=== PATIENT | male | born 1960 | race Caucasian/White ===

== ENCOUNTER 2017-12-26 13:51 | Inpatient (IN) | payer MEDICAID ==
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
[2017-12-26] MEDS ORDERED: HYDROmorphone INJ* 2 MG/ML CARPUJECT SYRINGE IV SLOW PU ONE (15:11)
[2017-12-26] MEDS ORDERED: HYDROmorphone INJ* 1 MG/ML CARPUJECT SYRINGE IV ONE (15:15)
[2017-12-26] MEDS ORDERED: HYDROmorphone INJ1* 1 MG/ML SYRINGE ONE ×3 (15:15→22:29)
[2017-12-26] MEDS ORDERED: NS 0.9% 1000 ML* 1,000 ML IV ONE ×2 (16:52→17:27)
[2017-12-26] MEDS ORDERED: Lidocaine 2% PF * 5 ML VIAL ONE (17:41)
[2017-12-26] MEDS ORDERED: fentaNYL* 50 MCG/ML 2 ML VIAL (100 MCG VIAL) ONE (17:41)
[2017-12-26] MEDS ORDERED: Propofol* 10 MG/ML 20 ML BTL IV PUSH ONE (17:41)
[2017-12-26] MEDS ORDERED: Metoclopramide IV* 5 MG/ML 2 ML VIAL ONE ×2 (17:41→21:00)
[2017-12-26] MEDS ORDERED: Midazolam* 1 MG/ML 2 ML VIAL (2 MG) ONE (17:41)
[2017-12-26] MEDS ORDERED: Rocuronium* 10 MG/ML VIAL ONE ×2 (17:41→21:18)
[2017-12-26] MEDS ORDERED: ZOSYN 3.375 GM x ONE DOSE over 30 miuntes IVPB ×2 (20:00)
[2017-12-26] MEDS ORDERED: Dexamethasone IV* 4 MG/ML 1 ML (4 MG) ONE (21:00)
[2017-12-26] MEDS ORDERED: Ondansetron INJ* 2 MG/ML VIAL ONE (21:00)
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
[2017-12-26] MEDS ORDERED: oxyCODONE/Acetamin 5/325 MG* TAB PO PRN (22:27)
[2017-12-26] MEDS ORDERED: Ondansetron INJ* 2 MG/ML VIAL IV PRN (22:27)
[2017-12-26] MEDS ORDERED: Acetaminophen IV 1GM/100ML * 1,000 MG/100 ML VIAL IVPB ONE (22:27)
[2017-12-26] MEDS ORDERED: HYDROmorphone INJ1* 1 MG/ML SYRINGE IV PRN (22:27)
[2017-12-26] MEDS ORDERED: DiMENhydriNATE IV* 50 MG/ML VIAL IV PUSH PRN (22:27)
[2017-12-26] MEDS ORDERED: Naloxone* 0.4 MG/ML 1 ML VIAL IV PRN (22:27)
[2017-12-26] MEDS ORDERED: Bupivacaine 0.5% SDV PF* 30ML VIAL ONE (22:29)
[2017-12-26] MEDS ORDERED: Ketorolac INJ* 30 MG/ML 1 ML VIAL ONE (22:31)
[2017-12-26] MEDS ORDERED: Neostigmine Methylsulfate* 1 MG/ML 10 ML VIAL (1 mg/ml) ONE (22:32)
[2017-12-26] MEDS ORDERED: Glycopyrrolate IV* 0.2 MG/ML 1 ML VIAL ONE (22:32)
--- NOTE | 2017-12-26 23:12 | BRIEFOPN ---
Brief Operative Note - Surgery Procedures: OPERATIVE REPORT PRE-OP: Peritonitis, pneumoperitoneum POST-OP:Same, Perforated sigmoid colon diverticula with abscess PROCEDURE: Exploratory laparotomy, sigmoid colon resection with end sigmoid colostomy SURGEON: MD Marcus ANESTHESIA:Local with General, Dr. Davis ASST:Niurka Garcia MD IVF: 2.5 L crystalloid EBL:100 cc SPECIMEN: Portion of sigmoid colon DRAIN: none WOUND CLASS: 4 COMPLICATIONS: none TO PACU
[2017-12-26] MEDS ORDERED: Acetaminophen TAB* 325 MG PO PRN (23:14)
[2017-12-26] MEDS ORDERED: Naloxone* 0.4 MG/ML 1 ML VIAL IV PUSH PRN (23:14)
[2017-12-26] MEDS ORDERED: Acetaminophen IV 1GM/100ML * 100 ML ONE (23:41)
[2017-12-26] MEDS ORDERED: Morphine PCA ADULT* 5 MG/ML 30 ML PCA SCH (23:45)
[2017-12-27] MEDS: NS 0.9% 1000 ML* 1,000 ML IV SCH ×4 (00:58→20:06)
[2017-12-27] MEDS: Ketorolac INJ* 30 MG/ML 1 ML VIAL IV PUSH PRN ×3 (03:27→20:14)
[2017-12-27] MEDS: Piperacillin/Tazobac ADVAN(*) 3.375 GM in NS 0.9% 100 ML* 100 ML IVPB SCH ×3 (03:39→20:24)
--- NOTE | 2017-12-27 05:11 | OP ---
DATE OF OPERATION: 12/26/17 - ROOM #338 DATE OF : 60 SURGEON: Hiram Velazquez MD ICE CREAM VAULT WORKER: Jn Garcia MD ANESTHESIOLOGIST: Dr. Davis ANESTHESIA: General with local. PRE-OP DIAGNOSIS: Peritonitis with pneumoperitoneum. POST-OP DIAGNOSES: 1. Peritonitis with pneumoperitoneum 2. Perforated sigmoid diverticulum with abscess and purulent peritonitis. OPERATIVE PROCEDURE: Exploratory laparotomy with partial sigmoid colon resection and end-sigmoid colostomy. IV FLUIDS: 2 L of crystalloid. ESTIMATED BLOOD LOSS: Less than 100 cc. WOUND CLASSIFICATION: 4. DRAINS: None. SPECIMENS: Portion of sigmoid colon. FINDINGS: There was a rather large perforation in the proximal to mid portion of the sigmoid colon, which had been walled off with omentum and small bowel. There was noted to be purulent peritonitis in all 4 quadrants of the abdomen. There was a large abscess that was drained. The gallbladder and liver were normal. The appendix was visualized and was unremarkable. All the small bowel inflammation was secondary to the perforated diverticulum. BRIEF HISTORY: Mr. Avtar Mota is a 57-year-old gentleman who presented to the emergency room at [facility] and transferred to the emergency room here at [facility] with 4 to 5 days of worsening abdominal discomfort. The CT scan showed large amount of pneumoperitoneum as well as probable perforated sigmoid diverticulum with abscess. On the physical exam, he was noted to have generalized peritonitis. Although his white blood cell count was only mildly elevated, he had no tachycardia. At this time, due to his exam and clinical appearance, he is being taken to the operating room for laparotomy. The procedure and its risks were all discussed with the patient and clearly outlined in the preoperatively transcribed history and physical. DESCRIPTION OF PROCEDURE: Written informed consent was obtained, the abdomen was marked with indelible ink and preoperative antibiotics were administered. The patient was taken to the operating room and placed in the supine position. Sequential compression devices and a warming blanket were applied. General anesthesia was administered. Irby catheter was inserted. The abdomen was prepped and draped in usual sterile fashion. Time-out verification was completed. A midline incision was made from just below the umbilicus down to the area just above the pubis and the peritoneal cavity was entered under direct vision. Upon entering, there was purulent turbid foul-smelling fluid in all 4 quadrants of the abdomen. There was an inflammatory mass in the left lower quadrant and there was omentum adherent to this and this was peeled off, entered an abscess cavity of creamy pus, which was cultured. After we were able to mobilize the small bowel as well as the omentum off the sigmoid colon, it appeared to be a rather large perforation of the sigmoid colon. There was no feculent peritonitis, however. The abscess was completely drained. I ran the entire small bowel and there appeared to be no primary process of pathology. There was fibrinous exudate along the areas of the small bowel that bordered the abscess and inflammatory process. Pelvis appeared to be unremarkable. The entire abdomen was thoroughly irrigated with 4 to 5 L of saline until clear as possible. I then made a decision to proceed with the resection of the diseased sigmoid colon. This was really in the proximal to mid sigmoid colon and a CRISTIN-80 blue load of the stapler was used to divide the colon on either side. There were multiple diverticulum, mainly noted distally, as well that were left behind. The mesentry of the sigmoid was divided with the LigaSure device. The specimen was handed off the table and I did alexis the distal sigmoid colon with 2 separate 3-0 Prolene sutures for future surgical intervention i.e. colostomy reversal. I then proceeded to mobilize the distal descending as well as the proximal sigmoid colon by dividing the peritoneum along the lateral white line of Toldt. This mobilized this up nicely. I did identify the left ureter at the pelvic brim and this was protected from injury throughout. A small portion of the mesentery of the proximal sigmoid was divided to mobilize this up to the anterior abdominal wall, and once we were able to do this with adequate length that I had felt through the site of the proposed colostomy, a unalakleet incision was made in the skin overlying the left rectus muscle just below the umbilicus and the subcutaneous fat was excised. A defect was made through both the anterior and posterior rectus sheath as well as splitting the muscle fibers of the rectus muscle and the stable portion of the colon was brought up through the abdominal wall with care to prevent twisting. It appeared to have little tension and was viable. Pelvis was then further irrigated and hemostasis was assured in the operative site areas. All sponge, needle, and laparotomy pad counts were reported as correct. The midline incision was closed with interrupted #1 Vicryl sutures. The skin was approximated loosely with a stapling device and the wound was packed with a moist 4 x 4 gauze. The colostomy was then matured to the skin with interrupted with 3-0 Vicryl suture. It was viable but edematous after removing the staple line. A colostomy appliance was applied. The patient tolerated the procedure well, was taken to the recovery room in stable condition. [id number]/[facility] #: [id number] [facility]
[2017-12-27 05:56] LABS: Hematocrit 38 % (42-52); Hemoglobin 12.6 g/dl (14.0-18.0); Mean Corpuscular HGB Conc 33 g/dl (31-36); Mean Corpuscular Hemoglobin 31 pg (27-31); Mean Corpuscular Volume 92 fL (80-94); Mean Platelet Volume 7.4 um3 (7.4-10.4); Platelet Count 386 10^3/ul (150-450); Red Cell Distribution Width 14 % (10.5-15); White Blood Count 18.9 10^3/ul (3.5-10.8)
[2017-12-27 06:16] LABS: EGFR Non-African American 102.6 (>60)
--- NOTE | 2017-12-27 08:40 | PN ---
Progress Note - Progress Note Date of Service: 12/27/17 SOAP: Subjective: Feels better Pain adequately controlled Tolerating some liquids, no N/V Objective: Temp Pulse Resp BP Pulse Ox 98.5 F 99 16 148/78 98 12/27/17 07:19 12/27/17 07:19 12/27/17 08:00 12/27/17 07:19 12/27/17 08:00 Intake & Output 12/25/17 12/26/17 12/27/17 12/28/17 06:59 06:59 06:59 06:59 Intake Total 4320 980 Output Total 850 Balance 3470 980 Weight 150 lb Intake: IV Fluids 3100 980 LR 2100 NS (0.9%) 980 Oral 1220 Output: Irby 750 Estimated Blood Loss 100 PEX: Comfortable Lungs are clear, decreased breath sounds at bases Abd is distended, dressing intact. 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
[2017-12-27] MEDS: Famotidine IV* 10 MG/ML 2 ML (20 mg) IV SLOW PU SCH ×2 (11:05→22:00)
[2017-12-27 13:19] LABS: INR 1.08 (0.77-1.02)
[2017-12-27] MEDS: Heparin VIAL(*) 5000 UNITS/ML VIAL (FIVE THOUSAND) SUBCUT SCH ×2 (13:44→22:00)
[2017-12-27] MEDS: Ondansetron INJ* 2 MG/ML VIAL IV PRN (20:14)
[2017-12-28] MEDS: NS 0.9% 1000 ML* 1,000 ML IV SCH ×2 (02:23→09:30)
[2017-12-28] MEDS: Ondansetron INJ* 2 MG/ML VIAL IV PRN (03:05)
[2017-12-28] MEDS: Piperacillin/Tazobac ADVAN(*) 3.375 GM in NS 0.9% 100 ML* 100 ML IVPB SCH ×3 (04:23→20:26)
[2017-12-28] MEDS: Heparin VIAL(*) 5000 UNITS/ML VIAL (FIVE THOUSAND) SUBCUT SCH ×3 (06:16→23:09)
--- NOTE | 2017-12-28 07:59 | RAD ---
INDICATION: Nasogastric tube placement COMPARISON: None. TECHNIQUE: Single AP portable view of the chest was obtained. FINDINGS: Image quality is compromised due to the relative inferiority of a portable chest x-ray. There is a gastric tube with the tip terminating over the expected location of the gastric fundus below the left hemidiaphragm. There is a mild degree of cardiomegaly. The pulmonary vasculature appears engorged and indistinct. There is bibasilar costophrenic angle blunting which could be due to small pleural effusions. Visualized bones are normal for the patient's age. IMPRESSION: 1. Appropriate positioning of gastric tube with the tip terminating below the left hemidiaphragm overlying the expected location of the gastric fundus. 2. Chest x-ray findings could be compatible with cardiogenic pulmonary edema possibly with trace pleural effusions.
--- NOTE | 2017-12-28 09:06 | PN ---
Progress Note - Progress Note Date of Service: 12/28/17 SOAP: Subjective: His abdomen became distended last night, some nausea, no vomiting NGT inserted with minimal output Pain adequately controlled with JEWELRY POLISHER No SOB or CP Objective: Temp Pulse Resp BP Pulse Ox 98.3 F 79 18 158/88 96 12/28/17 07:31 12/28/17 07:31 12/28/17 07:31 12/28/17 07:31 12/28/17 07:31 Intake & Output 12/26/17 12/27/17 12/28/17 12/29/17 06:59 06:59 06:59 06:59 Intake Total 4320 5777 Output Total 850 1195 Balance 3470 4582 Weight 150 lb Intake: IV Fluids 3100 4290 LR 2100 NS (0.9%) 4290 IVPB 107 ABX - ZOSYN 107 Oral 1220 1380 Output: NG Tube Drainage Amount 130 Irby 750 1020 Colostomy 45 Estimated Blood Loss 100 PEX: Comfortable-awake and alert and in NAD Lungs are clear, decreased breath sounds at bases Abd is distended and firm, decreased bowel sounds throughout. Midline incision is clean and pink, packing changed. Ostomy is pink and edematous, no output of fluid or gas. Appropriate incisional tenderness. Ext without edema. Labs pending Assessment: POD # 2 s/p exlap with sigmoid colon resection and colostomy for perforated sigmoid diverticula Peritonitis-improving Post op ileus Plan: NGT to suction, ice chips-urine output improving, decrease IVF rate Check labs today IV abx Subq heparin Pulmonary toilet H2 nicole
[2017-12-28 09:18] LABS: ABS Basophils 0 10^3/ul (0-0.2); ABS Eosinophils 0 10^3/ul (0-0.6); ABS Lymphocytes 0.7 10^3/ul (1.0-4.8); ABS Monocytes 1.1 10^3/ul (0-0.8); ABS Neutrophils 15.4 10^3/ul (1.5-7.7); ABS Nucleated RBC 0 10^3/ul; Eosinophil % 0 % (0-6); Hematocrit 38 % (42-52); Hemoglobin 12.9 g/dl (14.0-18.0); Lymphocyte % 4.3 % (25-47); Mean Corpuscular HGB Conc 34 g/dl (31-36); Mean Corpuscular Hemoglobin 31 pg (27-31); Mean Corpuscular Volume 93 fL (80-94); Mean Platelet Volume 7.4 um3 (7.4-10.4); Nucleated Red Blood Cells % 0.1; Platelet Count 403 10^3/ul (150-450); Red Blood Count 4.14 10^6/ul (4.00-5.40); Red Cell Distribution Width 14 % (10.5-15); White Blood Count 17.2 10^3/ul (3.5-10.8)
[2017-12-28 09:32] LABS: EGFR Non-African American 114.4 (>60)
[2017-12-28] MEDS: Famotidine IV* 10 MG/ML 2 ML (20 mg) IV SLOW PU SCH ×2 (10:51→23:11)
[2017-12-28] MEDS: Ketorolac INJ* 30 MG/ML 1 ML VIAL IV PUSH PRN ×2 (10:51→19:26)
[2017-12-29] MEDS: NS 0.9% 1000 ML* 1,000 ML IV SCH ×2 (00:20→19:45)
[2017-12-29] MEDS: Ketorolac INJ* 30 MG/ML 1 ML VIAL IV PUSH PRN (04:40)
[2017-12-29] MEDS: Piperacillin/Tazobac ADVAN(*) 3.375 GM in NS 0.9% 100 ML* 100 ML IVPB SCH ×3 (04:43→19:43)
[2017-12-29] MEDS: Heparin VIAL(*) 5000 UNITS/ML VIAL (FIVE THOUSAND) SUBCUT SCH ×3 (06:27→23:00)
[2017-12-29] MEDS: Famotidine IV* 10 MG/ML 2 ML (20 mg) IV SLOW PU SCH ×2 (10:09→23:00)
--- NOTE | 2017-12-29 10:19 | PN ---
Progress Note - Progress Note Date of Service: 12/29/17 Note: S: POD #3. Doing ok. Pain controlled between RENT CONTROL OFFICE MANAGER and Toradol. No N/V. Continues to have hiccups. No activity in colostomy yet. Ambulating. O: Intake and Output Last 24 Hours 12/27/17 12/28/17 12/29/17 12/30/17 06:59 06:59 06:59 06:59 Intake Total 4320 5777 3331 Output Total 850 1195 2030 300 Balance 3470 4582 1301 -300 Weight 150 lb Intake: IV Fluids 3100 4290 2541 ABX - ZOSYN 110 LR 2100 NS (0.9%) 4290 2431 IVPB 107 110 ABX - ZOSYN 107 110 Oral 1220 1380 680 Output: NG Tube Drainage Amount 130 780 Irby 750 1020 1250 300 Colostomy 45 0 Estimated Blood Loss 100 Vital Signs - 8 hr 12/29/17 12/29/17 12/29/17 03:30 04:01 05:25 Temperature 98.7 F Pulse Rate 79 Respiratory 18 16 16 Rate Blood Pressure 148/70 (mmHg) O2 Sat by Pulse 97 100 97 Oximetry 12/29/17 12/29/17 12/29/17 07:00 07:22 08:00 Temperature 97.6 F Pulse Rate 67 Respiratory 18 18 18 Rate Blood Pressure 142/72 (mmHg) O2 Sat by Pulse 94 100 94 Oximetry 12/29/17 09:00 Temperature Pulse Rate Respiratory 18 Rate Blood Pressure (mmHg) O2 Sat by Pulse 95 Oximetry Gen: NAD; appears comfortable Heart: reg Lungs: clear, incl bases Abd: distended; tympanitic; +BS; colostomy good color; thin clear serosang fluid in bag; no gas; softly firm, min tenderness to palp. Will return later to change packing. Extr: no edema C&S noted A: s/p sigmoid rsxn and end-colostomy for perf'd diverticulitis w/ abscess Prob ileus P: await GI fct; cont NG? (output equals intake of H2O);cont Zosyn; d/c Irby; wound and colostomy care
--- NOTE | 2017-12-29 18:56 | PN ---
Progress Note - Progress Note Date of Service: 12/29/17 Note: Addendum: midline wound packing (saline-moistened 4x4) changed; wound clean; moderate serosang drainage.
[2017-12-30] MEDS: Ketorolac INJ* 30 MG/ML 1 ML VIAL IV PUSH PRN ×3 (01:12→22:58)
[2017-12-30] MEDS: Piperacillin/Tazobac ADVAN(*) 3.375 GM in NS 0.9% 100 ML* 100 ML IVPB SCH ×3 (04:54→20:40)
[2017-12-30 04:58] LABS: ABS Basophils 0 10^3/ul (0-0.2); ABS Eosinophils 0.2 10^3/ul (0-0.6); ABS Lymphocytes 1.5 10^3/ul (1.0-4.8); ABS Nucleated RBC 0 10^3/ul; Eosinophil % 2.2 % (0-6); Hematocrit 34 % (42-52); Hemoglobin 11.6 g/dl (14.0-18.0); Lymphocyte % 14.1 % (25-47); Mean Corpuscular HGB Conc 35 g/dl (31-36); Mean Corpuscular Hemoglobin 31 pg (27-31); Mean Corpuscular Volume 91 fL (80-94); Mean Platelet Volume 7.5 um3 (7.4-10.4); Nucleated Red Blood Cells % 0.1; Platelet Count 443 10^3/ul (150-450); Red Cell Distribution Width 14 % (10.5-15); White Blood Count 10.8 10^3/ul (3.5-10.8)
[2017-12-30] MEDS: Ondansetron INJ* 2 MG/ML VIAL IV PRN ×2 (05:02→20:44)
[2017-12-30] MEDS: Heparin VIAL(*) 5000 UNITS/ML VIAL (FIVE THOUSAND) SUBCUT SCH ×3 (05:03→23:02)
[2017-12-30 05:21] LABS: EGFR Non-African American 147.3 (>60)
--- NOTE | 2017-12-30 09:44 | PN ---
Progress Note - Progress Note Date of Service: 12/30/17 SOAP: Subjective: Continues to feel better Had a small amount of air in bag and some fluid Burping a little Still feels distended Objective: Temp Pulse Resp BP Pulse Ox 98.7 F 67 16 153/69 97 12/30/17 05:05 12/30/17 05:05 12/30/17 07:00 12/30/17 05:05 12/30/17 07:00 Intake & Output 12/28/17 12/29/17 12/30/17 12/31/17 06:59 06:59 06:59 06:59 Intake Total 5777 3331 1080 Output Total 1195 2030 1620 Balance 4582 1301 -540 Intake: IV Fluids 4290 2541 ABX - ZOSYN 110 NS (0.9%) 4290 2431 IVPB 107 110 ABX - ZOSYN 107 110 Oral 1457 170 1364 Output: NG Tube Drainage Amount 130 780 120 Urine 975 Irby 1020 1250 525 Colostomy 45 0 PEX: Comfortable Lungs are clear Cor RRR Abd is distended and slightly firm. Bowel sounds are present and are hyperactive and slightly high pitched. Midline wound is clean and pink--packing changed. Ostomy is edematous and pink- some fluid in the bag Ext without edema Laboratory Results - last 24 hr 12/30/17 12/30/17 04:38 04:38 WBC 10.8 RBC 3.70 L Hgb 11.6 L Hct 34 L MCV 91 MCH 31 MCHC 35 RDW 14 Plt Count 443 MPV 7.5 Neut % (Auto) 73.9 Lymph % (Auto) 14.1 L [place] % (Auto) 9.4 H Eos % (Auto) 2.2 Baso % (Auto) 0.4 Absolute Neuts (auto) 8.0 H Absolute Lymphs (auto) 1.5 Absolute Monos (auto) 1.0 H Absolute Eos (auto) 0.2 Absolute Basos (auto) 0 Absolute Nucleated RBC 0 Nucleated RBC % 0.1 Sodium 137 Potassium 3.5 Chloride 107 Carbon Dioxide 24 Anion Gap 6 BUN 13 Creatinine 0.57 L Est GFR ( Amer) 178.3 Est GFR (Non-Af Amer) 147.3 BUN/Creatinine Ratio 22.8 H Glucose 95 Calcium 7.6 L Assessment: POD# 4 s/p ex lap sigmoid colon resection with end colostomy for perforated sigmoid diverticula Ileus Blood cultures positive for Bacteroides, operative cultures with e coli Plan: Sips of clears IV abx Increase activity Wound and ostomy care Pulmonary toilet Begin discharge planning
[2017-12-30] MEDS: NS 0.9% 1000 ML* 1,000 ML IV SCH (09:59)
[2017-12-30] MEDS: Famotidine IV* 10 MG/ML 2 ML (20 mg) IV SLOW PU SCH ×2 (10:01→20:42)
[2017-12-31] MEDS: Piperacillin/Tazobac ADVAN(*) 3.375 GM in NS 0.9% 100 ML* 100 ML IVPB SCH ×3 (05:27→19:49)
[2017-12-31] MEDS: Heparin VIAL(*) 5000 UNITS/ML VIAL (FIVE THOUSAND) SUBCUT SCH ×3 (05:31→22:10)
[2017-12-31] MEDS: Famotidine IV* 10 MG/ML 2 ML (20 mg) IV SLOW PU SCH ×2 (08:47→22:11)
[2017-12-31] MEDS: Ondansetron INJ* 2 MG/ML VIAL IV PRN ×2 (08:50→19:07)
[2017-12-31] MEDS: oxyCODONE/Acetamin 5/325 MG* TAB PO PRN ×3 (08:50→19:49)
[2017-12-31] MEDS ORDERED: HYDROmorphone INJ* 1 MG/ML CARPUJECT SYRINGE IV SLOW PU PRN (09:21)
--- NOTE | 2017-12-31 09:30 | PN ---
Progress Note - Progress Note Date of Service: 12/31/17 SOAP: Subjective: Still distended and burping, taking minimal po now, some nausea There has been some gas in colostomy bag Ambulating in halls Minimal abdominal pain Objective: Temp Pulse Resp BP Pulse Ox 98.6 F 64 20 147/74 96 12/31/17 08:32 12/31/17 08:32 12/31/17 08:50 12/31/17 08:32 12/31/17 08:32 Intake & Output 12/29/17 12/30/17 12/31/17 01/01/18 06:59 06:59 06:59 06:59 Intake Total 3331 1080 1680 Output Total 2029 1620 1125 340 Balance 1301 -540 555 -340 Intake: IV Fluids 2541 980 ABX - ZOSYN 110 NS (0.9%) 2431 980 IVPB 110 ABX - ZOSYN 110 Oral 680 1080 700 Output: NG Tube Drainage Amount 780 120 Urine 975 1050 340 Irby 1250 525 Colostomy 0 75 Other: Estimated Stool Amount Small PEX: Comfortable Lungs are clear, decreased breath sounds at the bases Cor is RRR Abd is distended and firm. Minimal bowel sounds present. Incision is clean and pink, packing changed. Ostomy is pink and edematous, some thicker green fluid in bag, minimal amount of gas Ext without edema No labs Blood cultures and wound cultures noted. Assessment: POD# 5 s/p exlap for perforated sigmoid colon diverticula with end sigmoid colostomy Post-op ileus Plan: He remains distended with minimal ostomy output. Some nausea with little po--he is not ready for discharge Will continue IV fluids and po as tolerated-await resolution of ileus before considering discharge IV abx Pulmonary toilet Sub q heparin H2 nicole Check labs in AM
[2017-12-31] MEDS: NS 0.9% 1000 ML* 1,000 ML IV SCH (11:12)
[2017-12-31] MEDS ORDERED: diPHENhydraMINE PO* 25 MG PO PRN (20:15)
[2018-01-01] MEDS: NS 0.9% 1000 ML* 1,000 ML IV SCH ×2 (02:24→21:32)
[2018-01-01] MEDS: HYDROmorphone INJ1* 1 MG/ML SYRINGE IV SLOW PU PRN (02:30)
[2018-01-01] MEDS: Piperacillin/Tazobac ADVAN(*) 3.375 GM in NS 0.9% 100 ML* 100 ML IVPB SCH ×3 (04:26→22:22)
[2018-01-01] MEDS: oxyCODONE/Acetamin 5/325 MG* TAB PO PRN ×6 (04:27→21:40)
[2018-01-01] MEDS: Heparin VIAL(*) 5000 UNITS/ML VIAL (FIVE THOUSAND) SUBCUT SCH ×3 (06:09→22:22)
[2018-01-01 06:41] LABS: ABS Basophils 0 10^3/ul (0-0.2); ABS Eosinophils 0.1 10^3/ul (0-0.6); ABS Lymphocytes 1.5 10^3/ul (1.0-4.8); ABS Neutrophils 19.8 10^3/ul (1.5-7.7); ABS Nucleated RBC 0 10^3/ul; Eosinophil % 0.2 % (0-6); Hematocrit 36 % (42-52); Lymphocyte % 6.5 % (25-47); Mean Corpuscular HGB Conc 34 g/dl (31-36); Mean Corpuscular Hemoglobin 31 pg (27-31); Mean Corpuscular Volume 91 fL (80-94); Mean Platelet Volume 7.4 um3 (7.4-10.4); Nucleated Red Blood Cells % 0; Platelet Count 538 10^3/ul (150-450); Red Blood Count 3.92 10^6/ul (4.00-5.40); Red Cell Distribution Width 14 % (10.5-15); White Blood Count 22.4 10^3/ul (3.5-10.8)
[2018-01-01 06:59] LABS: EGFR Non-African American 126.6 (>60)
[2018-01-01] MEDS: Famotidine IV* 10 MG/ML 2 ML (20 mg) IV SLOW PU SCH ×2 (09:18→22:22)
--- NOTE | 2018-01-01 10:08 | PN ---
Progress Note - Progress Note Date of Service: 01/01/18 SOAP: Subjective: Has had some crampy abdominal pain, still little fluid out ostomy, gas in bag that he needs to release No SOB or CP; some nausea and taking minimal po Excellent urine output Ambulating in halls Had itchy rash on back that has responded to benadryl Objective: Temp Pulse Resp BP Pulse Ox 98.2 F 74 22 116/56 96 01/01/18 07:30 01/01/18 07:30 01/01/18 09:17 01/01/18 07:30 01/01/18 07:30 Intake & Output 12/30/17 12/31/17 01/01/18 01/02/18 06:59 06:59 06:59 06:59 Intake Total 1080 1680 3393 Output Total 1620 1125 3065 Balance -540 555 328 Intake: IV Fluids 980 1186 ABX - ZOSYN 206 NS (0.9%) 980 980 IVPB 107 ABX - ZOSYN 107 Oral 4917 338 9146 Output: NG Tube Drainage Amount 120 Urine 975 1050 2965 Irby 525 Colostomy 75 100 Other: # Bowel Movements 1 Estimated Stool Amount Small PEX: Comfortable Lungs are clear, decreased breath sounds at bases Cor is RRR Abd is softer and remains distended and tympanitic-bowel sounds are present and are hyperactive and slightly high pitched. Wound is clean and fascia intact, repacked. Ostomy is pink and edematous, small amount of greenish fluid in bag Ext without edema Back-mild erythema without vesicles, cellulitis or drainage Laboratory Results - last 24 hr 01/01/18 01/01/18 06:09 06:09 WBC 22.4 H RBC 3.92 L Hgb 12.0 L Hct 36 L MCV 91 MCH 31 MCHC 34 RDW 14 Plt Count 538 H D MPV 7.4 Neut % (Auto) 88.5 H Lymph % (Auto) 6.5 L [place] % (Auto) 4.6 Eos % (Auto) 0.2 Baso % (Auto) 0.2 Absolute Neuts (auto) 19.8 H Absolute Lymphs (auto) 1.5 Absolute Monos (auto) 1.0 H Absolute Eos (auto) 0.1 Absolute Basos (auto) 0 Absolute Nucleated RBC 0 Nucleated RBC % 0 Sodium 138 Potassium 3.3 L Chloride 103 Carbon Dioxide 25 Anion Gap 10 BUN 10 Creatinine 0.65 L Est GFR ( Amer) 153.2 Est GFR (Non-Af Amer) 126.6 BUN/Creatinine Ratio 15.4 Glucose 87 Calcium 7.9 L Assessment: POD#6 s/p exlap sigmoid colon resection with colostomy for diverticulitis with perforation Post-ileus Leukocystosis-new, ? source. No fever, tachycardia and appears to be mobilizing fluid with excellent urine output. Plan: CT abd/pelvis [id number] source of elevated WBC CXR U/A Continue IV Zosyn Pulmonary toilet Continue with sips of clear liquids Recheck labs in AM All discussed with patient
[2018-01-01 11:35] LABS: Urine Appearance Clear; Urine Blood Negative (Negative); Urine Color Yellow; Urine Ketones 2+ (Negative); Urine Protein Negative (Negative); Urine Urobilinogen Positive (Negative)
--- NOTE | 2018-01-01 11:57 | RAD ---
HISTORY: Leukocytosis s/p laparatomy COMPARISONS: December 28, 2017 VIEWS: 4: Frontal dual-energy and lateral views of the chest. FINDINGS: CARDIOMEDIASTINAL SILHOUETTE: The cardiomediastinal silhouette is normal. AYSHA: The aysha are normal. PLEURA: There is blunting of the costophrenic angles bilaterally. LUNG PARENCHYMA: There is patchy alveolar opacification of the right middle lobe. ABDOMEN: The upper abdomen is clear. There is no subphrenic gas. BONES AND SOFT TISSUES: No bone or soft tissue abnormalities are noted. OTHER: None. IMPRESSION: 1. PATCHY ATELECTASIS VERSUS EARLY CONSOLIDATION OF THE RIGHT MIDDLE LOBE. 2. SMALL BILATERAL PLEURAL EFFUSIONS.
[2018-01-01] MEDS ORDERED: Iohexol 300* (CONTRAST) 10 ML SDV IV ONE (13:59)
--- NOTE | 2018-01-01 14:04 | RAD ---
CLINICAL HISTORY: Ileus POD#6, new leukocytosis COMPARISON: December 26, 2017 TECHNIQUE: Multiple contiguous axial CT scans were obtained of the abdomen and pelvis after the administration of intravenous contrast. Coronal and sagittal multiplanar reformations are submitted for review. Oral contrast was administered. Delayed images were obtained through the abdomen. FINDINGS: LUNG BASES: There are small bilateral pleural effusions. There is compressive atelectasis of the right lung base. LIVER: The liver is normal in shape, size, contour, and attenuation. BILE DUCTS: There is no intrahepatic or extrahepatic biliary dilatation. GALLBLADDER: The gallbladder is normal, without pericholecystic inflammatory change. PANCREAS: The pancreas is normal, without mass or ductal dilatation. SPLEEN: Normal in size and appearance. UPPER GI TRACT: Evaluation of the gastrointestinal tract is limited by incomplete gastric distention. The upper GI tract is unremarkable. SMALL BOWEL AND MESENTERY: There is diffuse distention and dilatation of small bowel loops. There is transition to decompressed small bowel within the right lower quadrant. COLON: There is diverticulosis of the colon. A colostomy is noted. The patient appears to be status post partial colectomy. ADRENALS: Normal bilaterally. KIDNEYS: Multiple renal cysts are noted. BLADDER: The bladder is smooth in contour. PELVIC ORGANS: The prostate is diffusely enlarged. The seminal vesicles are symmetric. AORTA: The aorta is normal. IVC: Unremarkable LYMPH NODES: There is no lymphadenopathy by size criteria. ABDOMINAL WALL: There is postsurgical change to the anterior abdominal wall. A colostomy is noted. BONES AND SOFT TISSUES: There is a stable compression deformity of the L1 vertebral body. OTHER: There is a small amount of ascites. IMPRESSION: 1. DILATED LOOPS OF SMALL BOWEL WITH TRANSITION TO DECOMPRESSED SMALL BOWEL WITHIN THE RIGHT LOWER QUADRANT SUGGESTIVE OF SMALL BOWEL OBSTRUCTION. 2. STATUS POST PARTIAL COLECTOMY AND COLOSTOMY. 3. ASCITES. 4. SMALL BILATERAL PLEURAL EFFUSIONS. 5. ENLARGED PROSTATE.
[2018-01-01] MEDS ORDERED: Potassium Chlor TAB* 20 MEQ TAB.ER PO ONE (16:21)
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
[2018-01-02] MEDS: Piperacillin/Tazobac ADVAN(*) 3.375 GM in NS 0.9% 100 ML* 100 ML IVPB SCH ×3 (04:09→21:20)
[2018-01-02] MEDS: oxyCODONE/Acetamin 5/325 MG* TAB PO PRN ×5 (04:09→21:24)
[2018-01-02] MEDS: Heparin VIAL(*) 5000 UNITS/ML VIAL (FIVE THOUSAND) SUBCUT SCH ×3 (06:01→21:20)
[2018-01-02 06:31] LABS: ABS Basophils 0.1 10^3/ul (0-0.2); ABS Eosinophils 0 10^3/ul (0-0.6); ABS Lymphocytes 1.3 10^3/ul (1.0-4.8); ABS Monocytes 1.5 10^3/ul (0-0.8); ABS Neutrophils 19.9 10^3/ul (1.5-7.7); ABS Nucleated RBC 0 10^3/ul; Eosinophil % 0.1 % (0-6); Hematocrit 35 % (42-52); Hemoglobin 11.8 g/dl (14.0-18.0); Lymphocyte % 5.8 % (25-47); Mean Corpuscular HGB Conc 34 g/dl (31-36); Mean Corpuscular Hemoglobin 31 pg (27-31); Mean Corpuscular Volume 92 fL (80-94); Mean Platelet Volume 7.3 um3 (7.4-10.4); Nucleated Red Blood Cells % 0; Platelet Count 575 10^3/ul (150-450); Red Blood Count 3.84 10^6/ul (4.00-5.40); Red Cell Distribution Width 14 % (10.5-15); White Blood Count 22.9 10^3/ul (3.5-10.8)
[2018-01-02 06:48] LABS: EGFR Non-African American 116.2 (>60)
[2018-01-02] MEDS: Famotidine IV* 10 MG/ML 2 ML (20 mg) IV SLOW PU SCH ×2 (08:27→21:17)
--- NOTE | 2018-01-02 10:43 | PN ---
Progress Note - Progress Note Date of Service: 01/02/18 SOAP: Subjective: He noted the ostomy bag filled with liquid earlier. There has been gas as well. He has been sticking to ice chips. Pain is well controlled. Objective: Vital Signs Temp 99.1 F 01/02/18 07:35 Pulse 79 01/02/18 07:35 Resp 20 01/02/18 08:27 BP 134/76 01/02/18 07:35 Pulse Ox 98 01/02/18 07:35 Intake & Output 01/01/18 01/02/18 01/02/18 18:59 06:59 18:59 Intake Total 300 2140 Output Total 330 1125 Balance -30 1015 Intake: IV Fluids 980 NS (0.9%) 980 IVPB 200 ABX - ZOSYN 200 Oral 300 960 Output: Urine 330 825 Colostomy 300 Laboratory Results - last 24 hr 01/01/18 01/02/18 01/02/18 11:10 06:17 06:17 WBC 22.9 H RBC 3.84 L Hgb 11.8 L Hct 35 L MCV 92 MCH 31 MCHC 34 RDW 14 Plt Count 575 H MPV 7.3 L Neut % (Auto) 87.2 H Lymph % (Auto) 5.8 L [place] % (Auto) 6.6 Eos % (Auto) 0.1 Baso % (Auto) 0.3 Absolute Neuts (auto) 19.9 H Absolute Lymphs (auto) 1.3 Absolute Monos (auto) 1.5 H Absolute Eos (auto) 0 Absolute Basos (auto) 0.1 Absolute Nucleated RBC 0 Nucleated RBC % 0 Sodium 136 Potassium 3.7 Chloride 102 Carbon Dioxide 25 Anion Gap 9 BUN 10 Creatinine 0.70 Est GFR ( Amer) 140.7 Est GFR (Non-Af Amer) 116.2 BUN/Creatinine Ratio 14.3 Glucose 86 Calcium 8.0 L Total Bilirubin 0.70 AST 15 ALT 20 Alkaline Phosphatase 47 Total Protein 5.4 L Albumin 2.7 L Globulin 2.7 Albumin/Globulin Ratio 1.0 Urine Color Yellow Urine Appearance Clear Urine pH 5.0 Ur Specific [place] 1.020 Urine Protein Negative Urine Ketones 2+ A Urine Blood Negative Urine Nitrate Negative Urine Bilirubin Negative Urine Urobilinogen Positive A Ur Leukocyte Esterase Negative Urine Glucose Negative Assessment: POD#7 s/p exlap sigmoid colon resection with colostomy for diverticulitis with perforation Post-op ileus may be improving given increase in ostomy function. Leukocystosis-new, ? source. No fever, tachycardia and appears to be mobilizing fluid with excellent urine output. No obvious source noted on CT and ? atalectasis vs early pneumonia on CXR. Ileus would not be a cause of leukocytosis. Plan: Clears today. Cont Abx. F/u CBC.
--- NOTE | 2018-01-02 14:01 | PN ---
Subjective Date of Service: 01/02/18 Interval History: Pt reports he feels better everyday. He states he is hungry and wished he could advance his diet. He is tolerating clears. Denies abdominal pain. No cough/sob. Denies fever/chills. Objective Active Medications: Acetaminophen (Tylenol Tab*) 650 mg PO Q6H PRN PRN Reason: FEVER Diphenhydramine HCl (Benadryl Po*) 25 mg PO Q6H PRN PRN Reason: ITCHINESS Last Admin: 01/01/18 00:00 Dose: 25 mg Famotidine (Pepcid Iv*) 20 mg IV SLOW PU BID [facility] Last Admin: 01/02/18 08:27 Dose: 20 mg Heparin Sodium (Porcine) (Heparin Vial(*)) 5,000 units SUBCUT Q8HR [facility] Last Admin: 01/02/18 06:01 Dose: 5,000 units Hydromorphone HCl (Dilaudid Inj1s*) 0.5 mg IV SLOW PU Q2H PRN PRN Reason: PAIN Last Admin: 01/01/18 02:30 Dose: 0.5 mg Piperacillin Sod/Tazobactam (Sod 3.375 gm/ Sodium Chloride) 100 mls @ 25 mls/ hr IVPB Q8H [facility] Last Admin: 01/02/18 13:01 Dose: 25 mls/hr Sodium Chloride (Ns 0.9% 1000 Ml*) 1,000 mls @ 50 mls/hr IV PER RATE [facility] Last Admin: 01/01/18 21:32 Dose: 50 mls/hr Ondansetron HCl (Zofran Inj*) 4 mg IV Q6H PRN PRN Reason: NAUSEA Last Admin: 12/31/17 19:07 Dose: 4 mg Oxycodone/Acetaminophen (Percocet 5/325 Tab*) 1 tab PO Q4H PRN PRN Reason: PAIN Last Admin: 01/02/18 13:01 Dose: 1 tab Vital Signs - 8 hr 01/02/18 01/02/18 01/02/18 06:05 07:35 08:27 Temperature 99.1 F Pulse Rate 79 Respiratory 16 18 20 Rate Blood Pressure 134/76 (mmHg) O2 Sat by Pulse 98 Oximetry 01/02/18 01/02/18 10:25 13:01 Temperature Pulse Rate Respiratory 16 20 Rate Blood Pressure (mmHg) O2 Sat by Pulse Oximetry Oxygen Devices in Use Now: None Appearance: A+Ox3 57 yo male in NAD. very talkative, friendly. nontoxic appearing Eyes: No Scleral Icterus, PERRLA Neck: NL Appearance and Movements; NL JVP Respiratory: Symmetrical Chest Expansion and Respiratory Effort Cardiovascular: NL Sounds; No Murmurs; No JVD, RRR, No Edema Abdominal: - - stoma pink - - draining thin brown liquid into bag Extremities: No Edema, No Clubbing, Cyanosis Neurological: Alert and Oriented x 3, NL Sensation, NL Muscle Strength and Tone Lines/Tubes/Other Access: Clean, Dry and Intact Peripheral IV Nutrition: Taking PO's Result Diagrams: 01/02/18 06:17 01/02/18 06:17 Microbiology and Other Data: Microbiology 12/26/17 21:00 Anaerobic Culture - Final Wound - Peritoneal Skin and Soft Tissue MRSA/MSSA (PCR - Final Mrsa Negative S.aureus Negative Gram Stain - Final Wound Culture - Final Escherichia Coli Assess/Plan/Problems-Billing Assessment: 57 yo male with no significant PMH who presented with abdominal pain found to have an acute perforated sigmoid diverticulitis who is now s/p [place]'s procedure. Hospital medicine consulted for co-medical management of leukocytosis. - Patient Problems (1) Perforated sigmoid colon Comment: - Disposition per surgical team - s/p [place] procedure 12/26 - POD #7 - possible post op ileus - improving output from ostomy. - Doing well. Tolerating clear liquids. - continue zosyn (2) Leukocytosis Comment: patient appears nontoxic and is feeling well. unclear source. CT scan unremarkable (showing atelectasis) - no oxygen requirements/cough. U/a unremarkable. no tachycardia. blood pressures stable. low grade temp 99. continue to monitor. Encouraged pulm jose migueling (3) DVT prophylaxis Comment: HSQ (4) Full code status Status and Disposition: inpatient. Dispo per surgery
[2018-01-02] MEDS: Ondansetron INJ* 2 MG/ML VIAL IV PRN (21:29)
[2018-01-03] MEDS: NS 0.9% 1000 ML* 1,000 ML IV SCH (00:27)
[2018-01-03] MEDS: oxyCODONE/Acetamin 5/325 MG* TAB PO PRN ×4 (03:50→20:29)
[2018-01-03] MEDS: Piperacillin/Tazobac ADVAN(*) 3.375 GM in NS 0.9% 100 ML* 100 ML IVPB SCH ×3 (04:24→20:24)
[2018-01-03] MEDS: Heparin VIAL(*) 5000 UNITS/ML VIAL (FIVE THOUSAND) SUBCUT SCH ×3 (05:40→21:42)
[2018-01-03 06:51] LABS: ABS Basophils 0 10^3/ul (0-0.2); ABS Eosinophils 0.1 10^3/ul (0-0.6); ABS Lymphocytes 1.3 10^3/ul (1.0-4.8); ABS Monocytes 1.3 10^3/ul (0-0.8); ABS Neutrophils 13.1 10^3/ul (1.5-7.7); ABS Nucleated RBC 0 10^3/ul; Eosinophil % 0.9 % (0-6); Hematocrit 33 % (42-52); Hemoglobin 11.3 g/dl (14.0-18.0); Lymphocyte % 8.5 % (25-47); Mean Corpuscular HGB Conc 35 g/dl (31-36); Mean Corpuscular Hemoglobin 32 pg (27-31); Mean Corpuscular Volume 92 fL (80-94); Mean Platelet Volume 7.5 um3 (7.4-10.4); Nucleated Red Blood Cells % 0.1; Platelet Count 571 10^3/ul (150-450); Red Blood Count 3.58 10^6/ul (4.00-5.40); Red Cell Distribution Width 14 % (10.5-15)
[2018-01-03 07:07] LABS: EGFR Non-African American 116.2 (>60)
[2018-01-03] MEDS: Famotidine IV* 10 MG/ML 2 ML (20 mg) IV SLOW PU SCH ×2 (08:44→20:25)
--- NOTE | 2018-01-03 11:07 | RAD ---
HISTORY: Possible SBO, post-op COMPARISONS: CT dated January 01, 2018 VIEWS: Frontal supine and upright views of the abdomen. FINDINGS: BOWEL: There is distention with mild dilatation of small bowel within the midabdomen. Oral contrast is noted within the colon. CALCULI: There are no abnormal calculi. BONES AND SOFT TISSUES: There are no osseous abnormalities. OTHER FINDINGS: The lung bases are clear. There is no subphrenic gas. IMPRESSION: MILDLY DILATED LOOPS OF SMALL BOWEL WITHIN THE MIDABDOMEN. ORAL CONTRAST IS NOTED WITHIN THE COLON. THE DIFFERENTIAL INCLUDES ILEUS VERSUS PARTIAL OR INTERMITTENT OBSTRUCTION. RECOMMEND ATTENTION ON FOLLOW-UP IMAGING.
--- NOTE | 2018-01-03 11:45 | PN ---
Progress Note - Progress Note Date of Service: 01/03/18 SOAP: Subjective: Feels less distended and no burping or nausea, has an appetite Minimal output of fluid and gas from ostomy Minimal pain, has been ambulating in halls Objective: Temp Pulse Resp BP Pulse Ox 98.4 F 69 17 136/75 98 01/03/18 07:41 01/03/18 07:41 01/03/18 10:54 01/03/18 07:41 01/03/18 07:41 Intake & Output 01/01/18 01/02/18 01/03/18 01/04/18 06:59 06:59 06:59 06:59 Intake Total 3393 2440 1845 Output Total 3065 1455 1050 Balance 328 985 795 Intake: IV Fluids 5968 774 7700 ABX - ZOSYN 206 NS (0.9%) 613 401 2815 IVPB 107 200 195 ABX - ZOSYN 107 200 195 Oral 2100 1260 600 Output: Urine 2965 1155 1000 Colostomy 100 300 50 Other: # Bowel Movements 1 PEX: Comfortable-awake and alert, NAD Lungs are clear Abd is softer and less distended than over weekend. Bowel sounds are present and hyperactive and are more normal pitched, not tinkling. Minimal incisional tenderness, wound is clean and was repacked. Ostomy is pink and edematous. Ext without edema Laboratory Results - last 24 hr 01/03/18 01/03/18 05:59 05:59 WBC 16.0 H RBC 3.58 L Hgb 11.3 L Hct 33 L MCV 92 MCH 32 H MCHC 35 RDW 14 Plt Count 571 H MPV 7.5 Neut % (Auto) 82.3 Lymph % (Auto) 8.5 L [place] % (Auto) 8.2 H Eos % (Auto) 0.9 Baso % (Auto) 0.1 Absolute Neuts (auto) 13.1 H Absolute Lymphs (auto) 1.3 Absolute Monos (auto) 1.3 H Absolute Eos (auto) 0.1 Absolute Basos (auto) 0 Absolute Nucleated RBC 0 Nucleated RBC % 0.1 Sodium 138 Potassium 3.5 Chloride 103 Carbon Dioxide 29 Anion Gap 6 BUN 11 Creatinine 0.70 Est GFR ( Amer) 140.7 Est GFR (Non-Af Amer) 116.2 BUN/Creatinine Ratio 15.7 Glucose 100 Calcium 7.9 L Assessment: POD#8 s/p exlap with sigmoid colon resection for perforated sigmoid diverticula Post-op ileus v SBO--CT reviewed, AXR done today show air and contrast in colon , less small bowel distention. I do not feel re-operation is indicated at this point- Leukocytosis-improved, ?? etiology at this point. Plan: IV abx Recheck labs in AM-check nutritional parameters as he may require TPN Clear liquids po as tolerated H2 blockers and subq heparin WOund and ostomy care All above discussed with patient and his parents.
--- NOTE | 2018-01-03 11:53 | PN ---
Subjective Date of Service: 01/03/18 Interval History: Patient reports he has a good appetite and wishes he could eat more. He reports minimal abdominal soreness and pain. Liquid brown stool and air from colostomy. Denies fever/chills. No cough or SOB. Denies orthopnea or LE edema. Overall feels that he continues to improve daily Objective Active Medications: Acetaminophen (Tylenol Tab*) 650 mg PO Q6H PRN PRN Reason: FEVER Diphenhydramine HCl (Benadryl Po*) 25 mg PO Q6H PRN PRN Reason: ITCHINESS Last Admin: 01/01/18 00:00 Dose: 25 mg Famotidine (Pepcid Iv*) 20 mg IV SLOW PU BID [facility] Last Admin: 01/03/18 08:44 Dose: 20 mg Heparin Sodium (Porcine) (Heparin Vial(*)) 5,000 units SUBCUT Q8HR [facility] Last Admin: 01/03/18 05:40 Dose: 5,000 units Hydromorphone HCl (Dilaudid Inj1s*) 0.5 mg IV SLOW PU Q2H PRN PRN Reason: PAIN Last Admin: 01/01/18 02:30 Dose: 0.5 mg Piperacillin Sod/Tazobactam (Sod 3.375 gm/ Sodium Chloride) 100 mls @ 25 mls/ hr IVPB Q8H [facility] Last Admin: 01/03/18 04:24 Dose: 25 mls/hr Sodium Chloride (Ns 0.9% 1000 Ml*) 1,000 mls @ 50 mls/hr IV PER RATE [facility] Last Admin: 01/03/18 00:27 Dose: 50 mls/hr Ondansetron HCl (Zofran Inj*) 4 mg IV Q6H PRN PRN Reason: NAUSEA Last Admin: 01/02/18 21:29 Dose: 4 mg Oxycodone/Acetaminophen (Percocet 5/325 Tab*) 1 tab PO Q4H PRN PRN Reason: PAIN Last Admin: 01/03/18 08:44 Dose: 1 tab Vital Signs - 8 hr 01/03/18 01/03/18 01/03/18 03:50 05:43 07:41 Temperature 98.4 F Pulse Rate 69 Respiratory 20 18 16 Rate Blood Pressure 136/75 (mmHg) O2 Sat by Pulse 98 Oximetry 10/01/03/18 01/03/18 08:00 08:44 10:54 Temperature Pulse Rate Respiratory 16 16 17 Rate Blood Pressure (mmHg) O2 Sat by Pulse Oximetry Oxygen Devices in Use Now: None Appearance: A+Ox3 57 yo male A+Ox3 in NAD Eyes: No Scleral Icterus, PERRLA Ears/Nose/Mouth/Throat: NL Teeth, Lips, Gums, Mucous Membranes Moist Neck: NL Appearance and Movements; NL JVP Respiratory: Symmetrical Chest Expansion and Respiratory Effort, Clear to Auscultation Cardiovascular: NL Sounds; No Murmurs; No JVD, RRR, No Edema Abdominal: - - no distention, soft, +BS throughout. Stoma pink. dark brown liquid stool draining. Extremities: No Edema, No Clubbing, Cyanosis Skin: No Rash or Ulcers, No Nodules or Sclerosis Neurological: Alert and Oriented x 3, NL Sensation, NL Gait, NL Muscle Strength and Tone Lines/Tubes/Other Access: Clean, Dry and Intact Peripheral IV Nutrition: Taking PO's Result Diagrams: 01/03/18 05:59 01/03/18 05:59 Microbiology and Other Data: Microbiology 12/26/17 21:00 Anaerobic Culture - Final Wound - Peritoneal Skin and Soft Tissue MRSA/MSSA (PCR - Final Mrsa Negative S.aureus Negative Gram Stain - Final Wound Culture - Final Escherichia Coli Assess/Plan/Problems-Billing Assessment: 57 yo male with no significant PMH who presented with abdominal pain found to have an acute perforated sigmoid diverticulitis who is now s/p [place]'s procedure. Hospital medicine consulted for co-medical management of leukocytosis. - Patient Problems (1) Perforated sigmoid colon Comment: - Disposition per surgical team - s/p [place] procedure 12/26 - POD #8 - possible post op ileus - improving output from ostomy. - Doing well. Tolerating clear liquids - continue zosyn (2) Leukocytosis Comment: trending down - unclear etiology patient appears nontoxic and is feeling well. unclear source. CT scan unremarkable (showing atelectasis) - no oxygen requirements or cough. U/a unremarkable. no tachycardia. blood pressures stable. afebrile. continue to monitor. continue to encouraged pulm tolieting (3) DVT prophylaxis Comment: HSQ (4) Full code status Status and Disposition: inpatient. Dispo per surgery. Hospital medicine will sign off for now - discussed with Dr. Velazquez.
[2018-01-04] MEDS: oxyCODONE/Acetamin 5/325 MG* TAB PO PRN ×3 (00:37→22:07)
[2018-01-04] MEDS: NS 0.9% 1000 ML* 1,000 ML IV SCH (00:39)
[2018-01-04] MEDS: Piperacillin/Tazobac ADVAN(*) 3.375 GM in NS 0.9% 100 ML* 100 ML IVPB SCH ×2 (04:19→14:52)
[2018-01-04 05:32] LABS: ABS Basophils 0.1 10^3/ul (0-0.2); ABS Eosinophils 0.1 10^3/ul (0-0.6); ABS Lymphocytes 2.2 10^3/ul (1.0-4.8); ABS Monocytes 1.4 10^3/ul (0-0.8); ABS Neutrophils 10.4 10^3/ul (1.5-7.7); ABS Nucleated RBC 0 10^3/ul; Eosinophil % 0.9 % (0-6); Hematocrit 33 % (42-52); Hemoglobin 11.5 g/dl (14.0-18.0); Lymphocyte % 15.3 % (25-47); Mean Corpuscular HGB Conc 34 g/dl (31-36); Mean Corpuscular Hemoglobin 31 pg (27-31); Mean Corpuscular Volume 91 fL (80-94); Mean Platelet Volume 7.6 um3 (7.4-10.4); Nucleated Red Blood Cells % 0; Platelet Count 637 10^3/ul (150-450); Red Blood Count 3.69 10^6/ul (4.00-5.40); Red Cell Distribution Width 14 % (10.5-15); White Blood Count 14.2 10^3/ul (3.5-10.8)
[2018-01-04] MEDS: Heparin VIAL(*) 5000 UNITS/ML VIAL (FIVE THOUSAND) SUBCUT SCH ×3 (05:39→22:07)
[2018-01-04 05:54] LABS: EGFR Non-African American 128.9 (>60)
[2018-01-04] MEDS: Potassium Chlor TAB* 20 MEQ TAB.ER PO SCH ×3 (10:32→20:11)
[2018-01-04] MEDS: Famotidine IV* 10 MG/ML 2 ML (20 mg) IV SLOW PU SCH ×2 (10:32→20:09)
[2018-01-04] MEDS ORDERED: Magnesium Sulfate 2 GM IV* 2 GM/50 ML BAG IVPB ONE (12:06)
--- NOTE | 2018-01-04 13:27 | PN ---
Progress Note - Progress Note Date of Service: 01/04/18 SOAP: Subjective: Feels about the same No nausea or vomiting but no significant output from colostomy. Minimal abdominal pain Objective: Temp Pulse Resp BP Pulse Ox 98.4 F 68 18 143/70 97 01/04/18 07:49 01/04/18 07:49 01/04/18 08:00 01/04/18 07:49 01/04/18 08:00 Intake & Output 01/02/18 01/03/18 01/04/18 01/05/18 06:59 06:59 06:59 06:59 Intake Total 2440 1845 1200 Output Total 1455 1050 2655 700 Balance 985 795 -1455 -700 Intake: IV Fluids 980 1050 900 NS (0.9%) 980 1050 900 IVPB 200 195 ABX - ZOSYN 200 195 Oral 1260 600 300 Output: Urine 1155 1000 2655 700 Colostomy 300 50 Other: # Bowel Movements 0 PEX: Comfortable Awake and alert Lungs are clear Abd remains distended and soft. Bowel sounds are present and are hyperactive but not high pitched. No generalized pain. Incision is clean and was repacked, appropriate incisional tenderness. Ostomy is pink and edematous. Laboratory Results - last 24 hr 01/04/18 01/04/18 05:06 05:06 WBC 14.2 H RBC 3.69 L Hgb 11.5 L Hct 33 L MCV 91 MCH 31 MCHC 34 RDW 14 Plt Count 637 H D MPV 7.6 Neut % (Auto) 73.3 Lymph % (Auto) 15.3 L [place] % (Auto) 10.1 H Eos % (Auto) 0.9 Baso % (Auto) 0.4 Absolute Neuts (auto) 10.4 H Absolute Lymphs (auto) 2.2 Absolute Monos (auto) 1.4 H Absolute Eos (auto) 0.1 Absolute Basos (auto) 0.1 Absolute Nucleated RBC 0 Nucleated RBC % 0 Sodium 139 Potassium 3.1 L Chloride 104 Carbon Dioxide 28 Anion Gap 7 BUN 7 Creatinine 0.64 L Est GFR ( Amer) 156.0 Est GFR (Non-Af Amer) 128.9 BUN/Creatinine Ratio 10.9 Glucose 94 Calcium 8.0 L Phosphorus 3.1 Magnesium 1.8 L Total Bilirubin 0.50 AST 14 ALT 16 Alkaline Phosphatase 66 Total Protein 5.6 L Albumin 2.7 L Globulin 2.9 Albumin/Globulin Ratio 0.9 L Prealbumin 8 L Triglycerides 171 Cholesterol 126 Assessment: POD#9 s/p ex lap with sigmoid colon resection and colostomy for perforated sigmoid colon diverticula Leukocytosis-improving, unknown etiology Post-op ileus v SBO Plan: PICC line with TPN IV abx H2 nicole and subq heparin Follow for now-uncertain as to cause of ileus-he has not had normal GI function since surgery and not acting like post-op SBO. I would like to avoid re- operation and will start TPN and continue to follow. His exam is benign and has no fever or tachycardia-there is no urgent need for re-exploration.
[2018-01-04] MEDS: Ondansetron INJ* 2 MG/ML VIAL IV PRN ×2 (16:37→22:39)
[2018-01-04] MEDS: TPN* 24 HR with Dextrose 50% Water* 500 ML, Amino Acid Infusion 10%* 850 ML, Sterile Wa... CENTR SCH ×12 (18:39)
[2018-01-04] MEDS: KCL 10 MEQ/50 ML IVPREMIX* 10 MEQ/50 ML BAG IV SCH ×4 (19:08→21:08)
[2018-01-04] MEDS: metroNIDAZOLE IV 500 MG/100ML* 500 MG/100 ML BAG IVPB SCH (22:01)
[2018-01-04] MEDS: cefTRIAXone* 1 GM in NS 0.9% 50 ML BAG IVPB SCH (23:11)
[2018-01-05] MEDS: oxyCODONE/Acetamin 5/325 MG* TAB PO PRN ×5 (02:55→21:05)
[2018-01-05] MEDS ORDERED: Ondansetron INJ* 2 MG/ML VIAL IV ONE (03:20)
[2018-01-05] MEDS: HYDROmorphone INJ1* 1 MG/ML SYRINGE IV SLOW PU PRN (03:46)
[2018-01-05] MEDS: Heparin VIAL(*) 5000 UNITS/ML VIAL (FIVE THOUSAND) SUBCUT SCH ×3 (05:39→22:16)
[2018-01-05 06:16] LABS: EGFR Non-African American 144.4 (>60)
[2018-01-05] MEDS: metroNIDAZOLE IV 500 MG/100ML* 500 MG/100 ML BAG IVPB SCH ×2 (07:49→21:04)
[2018-01-05] MEDS: Famotidine IV* 10 MG/ML 2 ML (20 mg) IV SLOW PU SCH ×2 (08:11→21:04)
[2018-01-05] MEDS: Potassium Chlor TAB* 20 MEQ TAB.ER PO SCH ×3 (08:11→21:05)
--- NOTE | 2018-01-05 13:25 | PN ---
Progress Note - Progress Note Date of Service: 01/05/18 SOAP: Subjective: Feels about the same No nausea or vomiting-sipping water only. No output from ostomy Occasional minimal abdominal pain Objective: Temp Pulse Resp BP Pulse Ox 98.2 F 71 20 135/68 99 01/05/18 11:22 01/05/18 11:22 01/05/18 12:01 01/05/18 11:22 01/05/18 11:22 Intake & Output 01/03/18 01/04/18 01/05/18 01/06/18 06:59 06:59 06:59 06:59 Intake Total 1845 1200 3271 109 Output Total 1050 2655 5275 700 Balance 795 -1455 -2004 -591 Intake: IV Fluids 5076 928 1818 109 ABX - FLAGYL 109 ABX - ZOSYN 369 Magnesium 55 NS (0.9%) 1050 900 664 IVPB 195 335 ABX - CEFTRIAXONE 50 ABX - FLAGYL 100 ABX - ZOSYN 195 85 Potassium 100 TPN/PPN 838 Oral 764 474 7469 Output: Urine 1000 2655 5275 700 Colostomy 50 Other: # Bowel Movements 0 PEX: Comfortable Lungs are clear Abd is soft and slightly distended. Bowel sounds are present and slightly higher pitched. Assessment: POD# 10 s/p exlap with sigmoid colon resection for perforated sigmoid diverticula with colostomy Ileus v SBO Malnutrition Plan: TPN started IV abx Sips of clears Repeat labs and AXR in AM--follow clinically for now.
[2018-01-05] MEDS: TPN* 24 HR with Dextrose 50% Water* 500 ML, Amino Acid Infusion 10%* 850 ML, Sterile Wa... CENTR SCH ×12 (17:30)
[2018-01-05] MEDS: cefTRIAXone* 1 GM in NS 0.9% 50 ML BAG IVPB SCH (22:11)
[2018-01-06] MEDS: oxyCODONE/Acetamin 5/325 MG* TAB PO PRN ×3 (01:39→11:12)
[2018-01-06] MEDS: Ondansetron INJ* 2 MG/ML VIAL IV PRN (02:01)
[2018-01-06] MEDS: Heparin VIAL(*) 5000 UNITS/ML VIAL (FIVE THOUSAND) SUBCUT SCH ×3 (06:25→21:40)
[2018-01-06 06:39] LABS: ABS Basophils 0.1 10^3/ul (0-0.2); ABS Eosinophils 0.2 10^3/ul (0-0.6); ABS Lymphocytes 2.3 10^3/ul (1.0-4.8); ABS Monocytes 1.5 10^3/ul (0-0.8); ABS Neutrophils 12.9 10^3/ul (1.5-7.7); ABS Nucleated RBC 0 10^3/ul; Hematocrit 37 % (42-52); Hemoglobin 12.2 g/dl (14.0-18.0); Lymphocyte % 13.5 % (25-47); Mean Corpuscular HGB Conc 33 g/dl (31-36); Mean Corpuscular Hemoglobin 31 pg (27-31); Mean Corpuscular Volume 92 fL (80-94); Mean Platelet Volume 7.4 um3 (7.4-10.4); Nucleated Red Blood Cells % 0; Platelet Count 721 10^3/ul (150-450); Red Blood Count 3.99 10^6/ul (4.00-5.40); Red Cell Distribution Width 14 % (10.5-15)
[2018-01-06 07:03] LABS: EGFR Non-African American 133.7 (>60)
--- NOTE | 2018-01-06 08:59 | RAD ---
Indication: Follow-up bowel obstruction. Comparison: January 03, 2018 Technique: Supine and upright views of the abdomen. Report: Negative for free air beneath the diaphragm. Midline lower abdominal cutaneous olivia. Moderate stool in the RIGHT and proximal transverse colon. Gas is visualized throughout the remainder of the colon. Mild gaseous distention of the small bowel with a few dilated loops in the central upper abdomen. A few small air-fluid levels are noted. Unremarkable soft tissue contours. Grossly clear lung bases. IMPRESSION: #. The constellation of findings favors mild postoperative ileus.
[2018-01-06] MEDS: metroNIDAZOLE IV 500 MG/100ML* 500 MG/100 ML BAG IVPB SCH ×2 (09:35→21:38)
[2018-01-06] MEDS: Famotidine IV* 10 MG/ML 2 ML (20 mg) IV SLOW PU SCH ×2 (09:36→21:38)
[2018-01-06] MEDS: Potassium Chlor TAB* 20 MEQ TAB.ER PO SCH ×3 (09:39→21:41)
--- NOTE | 2018-01-06 11:01 | PN ---
Progress Note - Progress Note Date of Service: 01/06/18 SOAP: Subjective: [] Feels about the same No output from stoma No N/V and minimal occasional abdominal pain Objective: Temp Pulse Resp BP Pulse Ox 98.1 F 69 18 155/73 96 01/06/18 08:22 01/06/18 08:22 01/06/18 08:57 01/06/18 08:22 01/06/18 08:22 Intake & Output 01/04/18 01/05/18 01/06/18 01/07/18 06:59 06:59 06:59 06:59 Intake Total 1200 3271 701 Output Total 2655 5275 3405 100 Balance -1455 -2004 -2704 -100 Intake: IV Fluids 900 1088 109 ABX - FLAGYL 109 ABX - ZOSYN 369 Magnesium 55 NS (0.9%) 900 664 IVPB 335 152 ABX - CEFTRIAXONE 50 52 ABX - FLAGYL 100 100 ABX - ZOSYN 85 Potassium 100 TPN/PPN 838 Oral 300 1010 440 Output: Urine 2655 5275 3405 100 Other: Estimated Void Medium # Bowel Movements 0 # Voids 1 PEX: Comfortable Lungs are clear COr is RRR Abd is soft and slightly distended. Bowel sounds are present, hypoactive Wound is clean and pink, packing changed. Ostomy is pink and edematous, digital exam shows patency through fascia. No stool in bag Ext without edema Laboratory Results - last 24 hr 01/05/18 01/05/18 01/05/18 12:09 18:53 23:56 WBC RBC Hgb Hct MCV MCH MCHC RDW Plt Count MPV Neut % (Auto) Lymph % (Auto) [place] % (Auto) Eos % (Auto) Baso % (Auto) Absolute Neuts (auto) Absolute Lymphs (auto) Absolute Monos (auto) Absolute Eos (auto) Absolute Basos (auto) Absolute Nucleated RBC Nucleated RBC % Sodium Potassium Chloride Carbon Dioxide Anion Gap BUN Creatinine Est GFR ( Amer) Est GFR (Non-Af Amer) BUN/Creatinine Ratio Glucose POC Glucose (mg/dL) 131 H 147 H 134 H Calcium Ionized Calcium Phosphorus Magnesium Total Bilirubin Direct Bilirubin Indirect Bilirubin AST ALT Alkaline Phosphatase Total Protein Albumin Globulin Albumin/Globulin Ratio 01/06/18 01/06/18 01/06/18 06:31 06:31 06:31 WBC 17.0 H RBC 3.99 L Hgb 12.2 L Hct 37 L MCV 92 MCH 31 MCHC 33 RDW 14 Plt Count 721 H D MPV 7.4 Neut % (Auto) 76.0 Lymph % (Auto) 13.5 L [place] % (Auto) 8.8 H Eos % (Auto) 1.0 Baso % (Auto) 0.7 Absolute Neuts (auto) 12.9 H Absolute Lymphs (auto) 2.3 Absolute Monos (auto) 1.5 H Absolute Eos (auto) 0.2 Absolute Basos (auto) 0.1 Absolute Nucleated RBC 0 Nucleated RBC % 0 Sodium 138 Potassium 4.4 Chloride 105 Carbon Dioxide 25 Anion Gap 8 BUN 12 Creatinine 0.62 L Est GFR ( Amer) 161.8 Est GFR (Non-Af Amer) 133.7 BUN/Creatinine Ratio 19.4 Glucose 91 POC Glucose (mg/dL) Calcium 8.7 Ionized Calcium 4.70 Phosphorus 3.8 Magnesium 2.0 Total Bilirubin 0.40 Direct Bilirubin 0.10 Indirect Bilirubin 0.3 AST 18 ALT 22 Alkaline Phosphatase 71 Total Protein 6.3 L Albumin 3.1 L Globulin 3.2 Albumin/Globulin Ratio 1.0 AXR reviewed-- Appears to be ileus, large amount of gas in transverse colon, air in small bowel, improved from last exam Assessment: POD# 10 s/p ex lap with sigmoid colon resection for perforated colon diverticula with end colostomy Ileus v SBO Malnutrition Lekocytosis-no fever, tachycardia Plan: Continue TPN IV abx for 24 more hours and then D/C Increase activity No urgent indication for surgical exploration-hopeful ileus/SBO will resolve with present care Discussed with patient.
[2018-01-06] MEDS: TPN* 24 HR with Dextrose 50% Water* 500 ML, Amino Acid Infusion 10%* 850 ML, Sterile Wa... CENTR SCH ×12 (16:47)
[2018-01-06] MEDS: HYDROmorphone INJ1* 1 MG/ML SYRINGE IV SLOW PU PRN ×2 (18:53→23:50)
[2018-01-06] MEDS: cefTRIAXone* 1 GM in NS 0.9% 50 ML BAG IVPB SCH (22:56)
[2018-01-07] MEDS: Heparin VIAL(*) 5000 UNITS/ML VIAL (FIVE THOUSAND) SUBCUT SCH ×3 (05:23→22:20)
[2018-01-07 07:25] LABS: EGFR Non-African American 136.2 (>60)
[2018-01-07] MEDS: metroNIDAZOLE IV 500 MG/100ML* 500 MG/100 ML BAG IVPB SCH ×2 (08:01→20:37)
[2018-01-07] MEDS: HYDROmorphone INJ1* 1 MG/ML SYRINGE IV SLOW PU PRN ×2 (08:01→15:57)
[2018-01-07] MEDS: Potassium Chlor TAB* 20 MEQ TAB.ER PO SCH ×3 (08:02→20:37)
[2018-01-07] MEDS: Famotidine IV* 10 MG/ML 2 ML (20 mg) IV SLOW PU SCH ×2 (08:02→20:38)
[2018-01-07] MEDS: Ondansetron INJ* 2 MG/ML VIAL IV PRN (08:12)
--- NOTE | 2018-01-07 11:00 | PN ---
Progress Note - Progress Note Date of Service: 01/07/18 Note: S: POD #12. Passing small amts of gas per ostomy. No pain. Not interested in current clear liqs; would like some "real coffee" and to advance diet. O: Vital Signs - 8 hr 01/07/18 01/07/18 01/07/18 03:44 07:54 08:01 Temperature 100.3 F 98.8 F Pulse Rate 83 83 Respiratory 16 18 20 Rate Blood Pressure 153/79 128/77 (mmHg) O2 Sat by Pulse 98 99 Oximetry 01/07/18 09:02 Temperature Pulse Rate Respiratory 15 Rate Blood Pressure (mmHg) O2 Sat by Pulse Oximetry Intake and Output Last 24 Hours 01/05/18 01/06/18 01/07/18 01/08/18 06:59 06:59 06:59 06:59 Intake Total 3271 701 3654 Output Total 5275 3405 3300 8 354 Intake: IV Fluids 1088 109 151 ABX - FLAGYL 109 100 ABX - ZOSYN 369 Magnesium 55 NS (0.9%) 664 51 IVPB 335 152 168 ABX - CEFTRIAXONE 50 52 58 ABX - FLAGYL 100 100 110 ABX - ZOSYN 85 Potassium 100 TPN/PPN 838 2515 Oral 1010 440 820 Output: Urine 5275 3405 3300 Colostomy 0 Other: Estimated Void Medium # Bowel Movements 0 # Voids 1 Gen: appears comfortable; NAD Heart: reg Lungs: clear ant Abd: less distended; +BS, though still somewhat hypoactive; soft, nontender to palp; still moderate tympany; small amt gas in bag; ostomy nl color Labs: chem, incl Mg and PO4 nl; prealbumin 18 A: s/p Vanda procedure; ileus, beginning to resolve P: will try full liqs (discussed w/ Dr. Velazquez); cont TPN for now pend fariba of diet adv
[2018-01-07] MEDS: TPN* 24 HR with Dextrose 50% Water* 500 ML, Amino Acid Infusion 10%* 850 ML, Sterile Wa... CENTR SCH ×12 (18:08)
[2018-01-07] MEDS: oxyCODONE/Acetamin 5/325 MG* TAB PO PRN (20:34)
[2018-01-07] MEDS: cefTRIAXone* 1 GM in NS 0.9% 50 ML BAG IVPB SCH (22:20)
[2018-01-08] MEDS: oxyCODONE/Acetamin 5/325 MG* TAB PO PRN ×3 (06:07→21:17)
[2018-01-08] MEDS: Heparin VIAL(*) 5000 UNITS/ML VIAL (FIVE THOUSAND) SUBCUT SCH ×3 (06:07→21:18)
[2018-01-08] MEDS: Potassium Chlor TAB* 20 MEQ TAB.ER PO SCH ×3 (07:55→21:25)
[2018-01-08] MEDS: metroNIDAZOLE IV 500 MG/100ML* 500 MG/100 ML BAG IVPB SCH ×2 (08:00→21:09)
[2018-01-08] MEDS: Famotidine IV* 10 MG/ML 2 ML (20 mg) IV SLOW PU SCH ×2 (08:00→21:16)
--- NOTE | 2018-01-08 09:33 | PN ---
Progress Note - Progress Note Date of Service: 01/08/18 Note: S/P Vanda's Afeb, VS noted Fariba small po's, No N/V Passing stool and flatus in bag Pain control good Abd soft, min-tender, stoma pink, dressing clean Non-distended, tho' still some tympany Seems to be turning the corner in terms of post-op ileus Will cont full liqs for now If fariba well another 24 hrs, will D/C TPN and advance diet
[2018-01-08] MEDS: TPN* 24 HR with Dextrose 50% Water* 500 ML, Amino Acid Infusion 10%* 850 ML, Sterile Wa... CENTR SCH ×12 (17:22)
[2018-01-08] MEDS: cefTRIAXone* 1 GM in NS 0.9% 50 ML BAG IVPB SCH (23:05)
[2018-01-09] MEDS: oxyCODONE/Acetamin 5/325 MG* TAB PO PRN ×3 (04:00→19:14)
[2018-01-09] MEDS: Heparin VIAL(*) 5000 UNITS/ML VIAL (FIVE THOUSAND) SUBCUT SCH ×3 (06:14→22:48)
[2018-01-09] MEDS: metroNIDAZOLE IV 500 MG/100ML* 500 MG/100 ML BAG IVPB SCH ×2 (08:08→19:30)
[2018-01-09] MEDS: Famotidine IV* 10 MG/ML 2 ML (20 mg) IV SLOW PU SCH ×2 (09:35→22:36)
[2018-01-09] MEDS: Potassium Chlor TAB* 20 MEQ TAB.ER PO SCH ×3 (09:36→22:51)
--- NOTE | 2018-01-09 10:48 | PN ---
Progress Note - Progress Note Date of Service: 01/09/18 Note: S/P Harmann's Afeb, VS OK Holden po's, No N/V Voiding, (+)stool/flatus in bag No pain Looks good, ambulating Abd benign, stoma pink Heplock IV Advance diet D/C TPN Cont Abx
[2018-01-09] MEDS: cefTRIAXone* 1 GM in NS 0.9% 50 ML BAG IVPB SCH (22:37)
[2018-01-09] MEDS: Ondansetron INJ* 2 MG/ML VIAL IV PRN (22:45)
[2018-01-10] MEDS: oxyCODONE/Acetamin 5/325 MG* TAB PO PRN ×5 (03:00→22:59)
[2018-01-10] MEDS: Heparin VIAL(*) 5000 UNITS/ML VIAL (FIVE THOUSAND) SUBCUT SCH ×3 (06:01→22:14)
[2018-01-10] MEDS: metroNIDAZOLE IV 500 MG/100ML* 500 MG/100 ML BAG IVPB SCH ×2 (07:55→20:26)
[2018-01-10] MEDS: Famotidine IV* 10 MG/ML 2 ML (20 mg) IV SLOW PU SCH ×2 (09:31→20:26)
[2018-01-10] MEDS: Potassium Chlor TAB* 20 MEQ TAB.ER PO SCH ×4 (09:32→20:26)
--- NOTE | 2018-01-10 16:08 | PN ---
Progress Note - Progress Note Date of Service: 01/10/18 SOAP: Subjective: Tolerating regular diet-had some crampy abdominal pain today but just passed a lot of gas into bag, now feels better No N/V Quite a bit of stool and gas yesterday into bag. Objective: Temp Pulse Resp BP Pulse Ox 98.6 F 105 20 104/76 100 01/10/18 11:47 01/10/18 11:47 01/10/18 13:15 01/10/18 11:47 01/10/18 11:47 Intake & Output 01/08/18 01/09/18 01/10/18 01/11/18 06:59 06:59 06:59 06:59 Intake Total 2085 3320 2121 600 Output Total 6155 934 4346 325 Balance 370 2670 586 275 Intake: IV Fluids 40 NS (0.9%) 40 IVPB 255 220 ABX - CEFTRIAXONE 50 110 ABX - FLAGYL 205 110 TPN/PPN 915 1560 1291 Oral 915 1760 570 600 Output: Urine 8987 588 7974 325 Colostomy 480 0 Other: Estimated Void Medium Date of Last Bowel 01/08/2018 Movement # Bowel Movements 1 Estimated Stool Amount Small # Voids 1 PEX: Comfortable Lungs are clear Abd is soft and non-distended. Bowel sounds are present and are normoactive- incision clean and pink. Ostomy is pink and edematous Assessment: POD# 14 s/p ex lap for perforated sigmoid colon diverticula, colon resection with end colostomy Ileus-resolving Plan: Continue regular diet Ostomy teaching Plan D/C tomorrow-no VN available in [facility]-hopefully parents can assist.
[2018-01-10] MEDS: cefTRIAXone* 1 GM in NS 0.9% 50 ML BAG IVPB SCH (22:14)
[2018-01-11] MEDS: oxyCODONE/Acetamin 5/325 MG* TAB PO PRN ×2 (03:32→13:18)
[2018-01-11] MEDS: Heparin VIAL(*) 5000 UNITS/ML VIAL (FIVE THOUSAND) SUBCUT SCH ×2 (05:41→13:56)
[2018-01-11] MEDS: metroNIDAZOLE IV 500 MG/100ML* 500 MG/100 ML BAG IVPB SCH (07:46)
[2018-01-11] MEDS: Ondansetron INJ* 2 MG/ML VIAL IV PRN (07:54)
[2018-01-11 07:56] LABS: EGFR Non-African American 107.3 (>60)
[2018-01-11] MEDS: Potassium Chlor TAB* 20 MEQ TAB.ER PO SCH ×2 (09:17→13:57)
[2018-01-11] MEDS: Famotidine IV* 10 MG/ML 2 ML (20 mg) IV SLOW PU SCH (09:17)
--- NOTE | 2018-01-11 13:25 | PN ---
Progress Note - Progress Note Date of Service: 01/11/18 SOAP: Subjective: Doing well-tolerating regular diet with large amounts of air in colostomy bag. Low grade fever last night, now afebrile Minimal discomfort Objective: Tmax 100.2 Temp Pulse Resp BP Pulse Ox 98.6 F 90 18 132/71 98 01/11/18 07:14 01/11/18 07:14 01/11/18 13:18 01/11/18 07:14 01/11/18 08:00 PEX: Comfortable Lungs are clear Abd is soft and non-distended. Bowel sounds are present and normoactive. Wound is healing well, olivia removed and steristrips placed. Ostomy is pink and edematous, gas in bag Ext without edema Assessment: S/P emergent exlap with sigmoid colon resection and end colostomy for perforated diverticulitis Ileus resolved Plan: D/C home today Ostomy care Follow up in office next week Instructions given.
[2018-01-11 16:38] VITALS: BP 105/51
--- NOTE | 2018-01-12 02:46 | DS ---
AMENDED REPORT NOW INCLUDES DESIGNATED COSIGNER DISCHARGE SUMMARY: DATE OF ADMISSION: 12/26/17 DATE OF DISCHARGE: 01/11/18 ATTENDING SURGEON: Dr. Hiram Velazquez.* (DICTATED BY RAFAEL NAIR) HOSPITAL COURSE: Please refer to admission history and physical and operative note for details. The patient presented with perforated diverticulitis and was taken to the OR on 12/26/17 at which time he underwent sigmoid colon resection with creation of end colostomy with Dr. Velazquez. His postoperative course was notable for a prolonged ileus requiring NG tube decompression and nutrition via TPN. Over the last few days, the patient's GI activity has improved and he is eating regular food. His pain is well controlled. His vital signs have been stable. His midline wound was approximated with Steri-Strips this morning and a dry sterile dressing placed. He feels comfortable with his colostomy care. Please see Dr. Velazquez's progress note from today for specifics of physical exam. The patient was covered with ceftriaxone and Flagyl during his inpatient stay, but will require no further antibiotics upon discharge. Prescription for both Percocet and Zofran sublingual were e-sent to his pharmacy. [facility] was checked. Instructions were reviewed regarding activity, diet and wound care. Follow up is scheduled at the [place] office on 01/20/18 at 1:45. RAFAEL NAIR [id number]/[facility] #: [id number] [facility]ITALDavey
== END 2018-01-11 16:40 | disposition home or self-care (01) | DRG 221 ==
LOC: ED 13:51 → OR 17:51 → SSU 12-27 00:35 → OBSVTOIN 12-27 13:11
PROVIDERS: ADMIT Surgery; ATTEND Surgery
PROC: 0D1N0Z4 Bypass Sigmoid Colon to Cutaneous, Open Approach (ICD-10-PCS; 2017-12-26)
PROC: 0DBN0ZZ Excision of Sigmoid Colon, Open Approach (ICD-10-PCS; principal; 2017-12-26 19:02)
PROC: 02HV33Z Insertion of Infusion Device into Superior Vena Cava, Percutaneous Approach (ICD-10-PCS; 2018-01-04)
DX: K57.20 Diverticulitis of large intestine with perforation and abscess without bleeding (principal); K65.0 Generalized (acute) peritonitis; K56.7 Ileus, unspecified; E46 Unspecified protein-calorie malnutrition; J98.11 Atelectasis; D72.825 Bandemia; F17.210 Nicotine dependence, cigarettes, uncomplicated; N40.0 Benign prostatic hyperplasia without lower urinary tract symptoms; K66.8 Other specified disorders of peritoneum; R06.6 Hiccough; L29.9 Pruritus, unspecified; R21 Rash and other nonspecific skin eruption; D72.829 Elevated white blood cell count, unspecified; E87.6 Hypokalemia; Z83.3 Family history of diabetes mellitus; Z56.0 Unemployment, unspecified; Z83.79 Family history of other diseases of the digestive system; Z87.442 Personal history of urinary calculi; Z68.23 Body mass index [BMI] 23.0-23.9, adult
CPT/HCPCS: 36415; 71045; 71046; 74019; 74177; 80048; 80053; 80076; 81003; 82330; 82465; 83735; 84100; 84134; 84478; 85025; 85027; 85610; 85730; 87070; 87073; 87077; 87186; 87205; 87640; 87641; 88307; 96374; 96375; 99283; 99406; A9270-GY; C1751; C1776; J0696; J1100; J1170; J1644; J1885; J2250; J2270; J2405; J2543; J2704; J2710; J2765; J3010; J3475; J3480; J3490; Q9967

== ENCOUNTER 2018-01-14 12:39 | Inpatient (IN) | payer MEDICAID ==
[2018-01-14] MEDS ORDERED: Ondansetron INJ* 2 MG/ML VIAL IV ONE ×2 (14:32→16:41)
[2018-01-14] MEDS ORDERED: Morphine INJ* 4 MG/ML 1 ML SYRINGE (NEW SYRINGE VERSION) IV ONE (14:32)
[2018-01-14] MEDS ORDERED: NS 0.9% 1000 ML* 1,000 ML IV ONE (14:32)
[2018-01-14 14:59] LABS: Hematocrit 38 % (42-52); Hemoglobin 12.8 g/dl (14.0-18.0); Mean Corpuscular HGB Conc 34 g/dl (31-36); Mean Corpuscular Hemoglobin 31 pg (27-31); Mean Corpuscular Volume 90 fL (80-94); Platelet Count 761 10^3/ul (150-450); Red Blood Count 4.21 10^6/ul (4.00-5.40); Red Cell Distribution Width 14 % (10.5-15); White Blood Count 18.9 10^3/ul (3.5-10.8)
[2018-01-14 15:08] LABS: INR 1.14 (0.77-1.02)
[2018-01-14 15:25] LABS: EGFR Non-African American 102.6 (>60)
[2018-01-14 15:32] LABS: ABS Basophils 0.1 10^3/ul (0-0.2); ABS Eosinophils 0 10^3/ul (0-0.6); ABS Lymphocytes 2.1 10^3/ul (1.0-4.8); ABS Monocytes 2.3 10^3/ul (0-0.8); ABS Neutrophils 14.4 10^3/ul (1.5-7.7); ABS Nucleated RBC 0 10^3/ul; Eosinophil % 0.2 % (0-6); Lymphocyte % 11.1 % (25-47); Nucleated Red Blood Cells % 0
--- NOTE | 2018-01-14 16:00 | ED ---
Abdominal Pain/Male - HPI Summary HPI Summary: Patient is a 57 y/o M w/ c/o diffuse abdominal pain and bowel movements. Patient 's mother is present in the room. Provider in room at 1346. He states that he [place] [facility] [place] diverticulitis. Patient reports that he had a perforation and surgery was performed 12/26/[address] Velazquez. Patient discharged to home with colostomy bag 01/11/18. He states he had a bowel movement two days ago from rectum "when I wasn't supposed to". Patient reports that he was told that he should not be producing stool from his rectum. He reports seven queen pellets of stool from rectum during his first bowel movement two days ago. After the bowel movement, he took a shower and states he had one more bowel movement where he produced one more pellet of lynn stool. Patient states he has not had bowel movement from rectum since. Patient states that diffuse abdominal pain onset shortly after bowel movements. However, he notes the main pain is at LLQ. Mother reports night sweats in patient as well. Pain is reported to be aggravated by food, patient rates pain 5-6/10 in the room. Patient states that his last meal were pancakes at around [id number]. He also notes that he took Percocet at this time as well, which alleviated Sx. Pt states that he has had output from his colostomy and there is not blood. Pt is not vomiting. No documented fever. Dr. Velazquez was called this morning, Dr. Velazquez's nurse advised patient come to ED. PMHx of bleeding hemorrhoids. FMHx of diverticulitis in father, no FMHx of colon cancer reported. On triage, pain is rated 8/10, eating is noted to aggravate Sx. Home medications and allergies are reviewed. In room, pulse 58, BP 140/76, 98 o2. Allergies Allergy/AdvReac Type Severity Reaction Status Date / Time No Known Allergies Allergy Verified 12/26/17 14:27 - History of Current Complaint Chief Complaint: EDAbdPain Stated Complaint: ABD PAIN Time Seen by Provider: 01/14/18 13:46 Hx Obtained From: Patient, Medical Records Onset/Duration: Lasting Days - two days ago, Still Present - abdominal pain, Resolved - bowel movements Timing: Constant Severity Initially: Severe - on triage, 10/22 Severity Currently: Moderate - in room, reports 5-610 Pain Intensity: 6 Pain Scale Used: 0-10 Numeric - 5-6/10 in room Location: Diffuse, Discrete At: LLQ - notes diffuse abdominal pain, main pain reported to be at LLQ Radiates: No Character: Dull Aggravating Factor(s): Food Alleviating Factor(s): Other: - percocet Associated Signs And Symptoms: Positive: Diaphoresis - night sweats, Other - bowel movements from rectum that he should not be having - Allergies/Home Medications Allergies/Adverse Reactions: Allergies Allergy/AdvReac Type Severity Reaction Status Date / Time No Known Allergies Allergy Verified 12/26/17 14:27 PMH/Surg Hx/FS Hx/Imm Hx Previously Healthy: No Endocrine/Hematology History: Denies: Hx Diabetes Cardiovascular History: Denies: Hx Hypertension GI History: Reports: Hx Diverticulosis - diverticulitis with perforation History: Reports: Hx Benign Prostatic Hyperplasia, Hx Kidney Stones Denies: Hx Renal Disease Sensory History: Reports: Hx Contacts or Glasses Denies: Hx Hearing Aid Opthamlomology History: Reports: Hx Contacts or Glasses - Surgical History Surgery Procedure, Year, and Place: Vanda's procedure for diverticulitis - Immunization History Immunizations Up to Date: Yes Infectious Disease History: No Infectious Disease History: Denies: Traveled Outside the [place] in Last 30 Days - Family History Known Family History: Positive: Diabetes - father, Other - diverticulitis - father Negative: Cardiac Disease, Hypertension - Social History Alcohol Use: None Hx Substance Use: Yes Substance Use Type: Reports: Marijuana Substance Use Comment - Amount & Last Used: 12/19/17 Smoking Status (MU): Former Smoker Review of Systems Positive: Skin Diaphoresis - night sweats . Negative: Fever - on vitals, temp is 98.7 F Cardiovascular: Negative Respiratory: Negative Positive: Abdominal Pain - diffuse, but mainy at LLQ , Other - having a bowel movement from rectum when he should not be having one Positive: no symptoms reported Musculoskeletal: Negative Positive: Other - abraded skin adjacent to colostomy bag Neurological: Negative Psychological: Normal All Other Systems Reviewed And Are Negative: Yes Physical Exam - Summary Physical Exam Summary: Appearance: ill-appearing, moderate pain distress, well-nourished Skin: Warm, color reflects adequate perfusion, dry; at LLQ, 4 open areas that are post-surgical, two 3 cm by 5 cm and there is pink granulation tissue with minimal sero-sanguinous drainage. Last two open areas, one 2 cm by 2 cm, the last 1 cm by 1 cm. Superficial abrasion lateral to the colostomy bag. Head: Normal Head/Face inspection, atraumatic Eyes: Conjunctiva clear ENT: Normal inspection Neck: Supple, no nodes, no JVD Respiratory: Lungs clear, normal breath sounds, no respiratory distress Cardio: RRR, No murmur, pulses normal, brisk capillary refill Abdomen: Soft, tenderness at LLQ, no guarding, no rebound, colostomy bag at LLQ in place with no stool, non-distended, no masses, wounds as above Rectal Exam: External rectum is fine, no external hemorrhoids, no stool felt in rectum, no blood, only mucous Bowel sounds: Present Musculoskeletal: Strength Intact/ROM intact, no calf tenderness, no edema. Psychological: Normal Neuro: Alert, muscle tone normal, no focal deficit Triage Information Reviewed: Yes Vital Signs On Initial Exam: Initial Vitals Temp Pulse Resp BP Pulse Ox 98.7 F 96 18 126/91 99 01/14/18 12:48 01/14/18 12:48 01/14/18 12:48 01/14/18 12:48 01/14/18 12:48 Vital Signs Reviewed: Yes Diagnostics - Vital Signs Vital Signs Temp Pulse Resp BP Pulse Ox 01/14/18 14:58 18 01/14/18 12:48 98.7 F 96 18 126/91 99 - Laboratory Lab Results: Lab Results 01/14/18 01/14/18 01/14/18 Range/Units 14:49 14:49 14:49 WBC 18.9 H (3.5-10.8) 10^3/ul RBC 4.21 (4.00-5.40) 10^6/ul Hgb 12.8 L (14.0-18.0) g/dl Hct 38 L (42-52) % MCV 90 (80-94) fL MCH 31 (27-31) pg MCHC 34 (31-36) g/dl RDW 14 (10.5-15) % Plt Count 761 H (150-450) 10^3/ul MPV 7.0 L (7.4-10.4) fL Neut % (Auto) 76.0 (38-83) % Lymph % (Auto) 11.1 L (25-47) % Camp % (Auto) 12.1 H (0-7) % Eos % (Auto) 0.2 (0-6) % Baso % (Auto) 0.6 (0-2) % Absolute Neuts (auto) 14.4 H (1.5-7.7) 10^3/ul Absolute Lymphs (auto) 2.1 (1.0-4.8) 10^3/ul Absolute Monos (auto) 2.3 H (0-0.8) 10^3/ul Absolute Eos (auto) 0 (0-0.6) 10^3/ul Absolute Basos (auto) 0.1 (0-0.2) 10^3/ul Absolute Nucleated RBC 0 10^3/ul Nucleated RBC % 0 INR (Anticoag Therapy) (0.77-1.02) APTT (26.0-36.3) seconds Sodium 133 L (135-145) mmol/L Potassium 4.7 (3.5-5.0) mmol/L Chloride 97 L (101-111) mmol/L Carbon Dioxide 26 (22-32) mmol/L Anion Gap 10 (2-11) mmol/L BUN 13 (6-24) mg/dL Creatinine 0.78 (0.67-1.17) mg/dL Est GFR ( Amer) 124.1 (>60) Est GFR (Non-Af Amer) 102.6 (>60) BUN/Creatinine Ratio 16.7 (8-20) Glucose 103 H (70-100) mg/dL Lactic Acid 0.8 (0.5-2.0) mmol/L Calcium 9.4 (8.6-10.3) mg/dL Magnesium 1.9 (1.9-2.7) mg/dL Total Bilirubin 0.50 (0.2-1.0) mg/dL AST 14 (13-39) U/L ALT 20 (7-52) U/L Alkaline Phosphatase 95 (34-104) U/L Total Creatine Kinase 20 (10-223) U/L Troponin I 0.00 (<0.04) ng/mL C-Reactive Protein 122.51 H (<8.01) mg/L Total Protein 7.1 (6.4-8.9) g/dL Albumin 3.5 (3.2-5.2) g/dL Globulin 3.6 (2-4) g/dL Albumin/Globulin Ratio 1.0 (1-3) Amylase 57 (29-103) U/L Lipase 52 (11.0-82.0) U/L 01/14/18 Range/Units 14:49 WBC (3.5-10.8) 10^3/ul RBC (4.00-5.40) 10^6/ul Hgb (14.0-18.0) g/dl Hct (42-52) % MCV (80-94) fL MCH (27-31) pg MCHC (31-36) g/dl RDW (10.5-15) % Plt Count (150-450) 10^3/ul MPV (7.4-10.4) fL Neut % (Auto) (38-83) % Lymph % (Auto) (25-47) % Camp % (Auto) (0-7) % Eos % (Auto) (0-6) % Baso % (Auto) (0-2) % Absolute Neuts (auto) (1.5-7.7) 10^3/ul Absolute Lymphs (auto) (1.0-4.8) 10^3/ul Absolute Monos (auto) (0-0.8) 10^3/ul Absolute Eos (auto) (0-0.6) 10^3/ul Absolute Basos (auto) (0-0.2) 10^3/ul Absolute Nucleated RBC 10^3/ul Nucleated RBC % INR (Anticoag Therapy) 1.14 H (0.77-1.02) APTT 31.1 (26.0-36.3) seconds Sodium (135-145) mmol/L Potassium (3.5-5.0) mmol/L Chloride (101-111) mmol/L Carbon Dioxide (22-32) mmol/L Anion Gap (2-11) mmol/L BUN (6-24) mg/dL Creatinine (0.67-1.17) mg/dL Est GFR ( Amer) (>60) Est GFR (Non-Af Amer) (>60) BUN/Creatinine Ratio (8-20) Glucose (70-100) mg/dL Lactic Acid (0.5-2.0) mmol/L Calcium (8.6-10.3) mg/dL Magnesium (1.9-2.7) mg/dL Total Bilirubin (0.2-1.0) mg/dL AST (13-39) U/L ALT (7-52) U/L Alkaline Phosphatase (34-104) U/L Total Creatine Kinase (10-223) U/L Troponin I (<0.04) ng/mL C-Reactive Protein (<8.01) mg/L Total Protein (6.4-8.9) g/dL Albumin (3.2-5.2) g/dL Globulin (2-4) g/dL Albumin/Globulin Ratio (1-3) Amylase (29-103) U/L Lipase (11.0-82.0) U/L Result Diagrams: 01/18/18 05:13 01/15/18 05:56 Lab Statement: Any lab studies that have been ordered have been reviewed, and results considered in the medical decision making process. - EKG 1500 Cardiac Rate: Tachycardia - rate of 96 BPM EKG Rhythm: Sinus Tachycardia ST Segment: Non-Specific Ectopy: PVCs Summary of EKG Findings: nml AV/IV CT, nml QTc, and nml axis Re-Evaluation - Re-Evaluation First Eval Re-Evaluation Time: 16:20 Change: Unchanged Comment: Discussed results of labs and tests as well as plan to get surgical consult with patient Abdominal Pain Fem Course/Dx - Course Course Of Treatment: Patient is a 57 y/o M w/ c/o diffuse abdominal pain and bowel movements from his rectum s/p Vanda's procedure. Patient's mother is present in the room. Provider in room at 1346. He states that he [place] [facility] [place]. Patient reports that he had diverticulitis with perforation and surgery was performed by Dr. Velazquez on . Patient discharged to home and has a colostomy bag 01/11/18. He states he had a bowel movement two days ago from rectum "when I wasn't supposed to". Patient reports that he was told that he should not be producing stool from his rectum. He reports seven queen pellets of stool from rectum during his first bowel movement two days ago. After the bowel movement, he took a shower and states he had one more bowel movement where he produced one more pellet of lynn stool. Patient states he has not had bowel movement from rectum since. Patient states that diffuse abdominal pain onset shortly after bowel movements. However , he notes the main pain is at LLQ. Mother reports night sweats in patient as well. Pain is reported to be aggravated by food, patient rates pain 5-6/10 in the room. Patient states that his last meal were pancakes at around [id number]. He also notes that he took Percocet at this time as well, which alleviated Sx. Dr. Velazquez was called this morning, Dr. Velazquez's nurse advised patient come to ED. PMHx of bleeding hemorrhoids. On physical exam, patient is noted to be ill-appearing in moderate pain distress. At LLQ, 4 open areas that are post- surgical, two 3 cm by 5 cm and there is pink granulation tissue with minimal serosanguinous drainage. Last two open areas, one 2 cm by 2 cm, the last 1 cm by 1 cm. Superficial abrasion lateral to the colostomy bag. Abdomen: Soft, tenderness at LLQ, no guarding, no rebound, colostomy bag at LLQ in place with no stool, non-distended, no masses, wounds as above. Rectal Exam: External rectum is fine, no external hemorrhoids, no stool felt in rectum, no blood, only mucous. During ED course, patient received fluids, Zofran 4mg x2 IV ONCE, morphine 4 mg IV ONCE. Labs showed 18.9 WBC, Plt count 761, INR 1.14, sodium 133 , chloride 97, glucose 103, lactic acid 0.8, magnesium 1.9, CRP 122.51, lipase 52, amylase 57. Stool occult blood was negative. EKG showed sinus tachycardia with rate of 96 BPM, nml AV/IV CT, nml QTc, and nml axis, non-specific ST, PVCs noted. Patient was signed out to Dr. Dinero pending CT abd/pel and Dr Garcia surgical consult. Dx of abdominal pain and Hx of colon resection. - Diagnoses Differential Diagnosis/HQI/PQRI: Bowel Obstruction, Diverticulitis, Other - abscess, perforation Provider Diagnoses: Leukocytosis, Acute abdominal pain in left lower quadrant, Status post Vanda 's procedure - Provider Notifications Discussed Care Of Patient With: Jn Garcia Time Discussed With Above Provider: 15:18 Instructed by Provider To: Other - 1518 - call to Dr. Garcia, surgeon production tech, was placed. 1526 - Martell from OR was reached, he states that he will convey patient's case to Dr. Garcia. Discharge - Sign-Out/Discharge Documenting (check all that apply): Sign-Out Patient Signing out patient TO: Mohamud Dinero - 01/14/18 1730, pending CT results and surgical consult Receiving patient FROM: Kristan Forte - Discharge Plan Condition: Stable - Billing Disposition and Condition Condition: STABLE - Attestation Statements Document Initiated by Pame: Yes Documenting Scribe: Nicolas Soto Provider For Whom Scribe is Documenting (Include Credential): Kristan Forte MD Scribe Attestation: Nicolas Benites scribed for Kristan Forte MD on 01/19/18 at 0209. Scribe Documentation Reviewed: Yes Provider Attestation: The documentation as recorded by the Nicolas ashley accurately reflects the service I personally performed and the decisions made by me, Kristan Forte MD
[2018-01-14] MEDS ORDERED: Iohexol 300* (CONTRAST) 10 ML SDV IV ONE (16:28)
[2018-01-14] MEDS ORDERED: Piperacillin/Tazobac ADVAN(*) 3.375 GM in NS 0.9% 100 ML* 100 ML IVPB ONE (17:26)
--- NOTE | 2018-01-14 17:30 | RAD ---
INDICATION: Abdominal pain. Post recent colectomy. COMPARISON: January 01, 2018 CT. TECHNIQUE: Multidetector CT images were obtained from the lung bases to the ischial tuberosities with 84 mL Omnipaque 300 IV and oral contrast. Multiplanar reformation. REPORT: VISUALIZED INFERIOR THORAX: Unremarkable visualized inferior thorax. LIVER / GALLBLADDER / PANCREAS / SPLEEN: No CT abnormality of the liver, gallbladder, pancreas, spleen. ALIMENTARY TRACT: No CT abnormality of the upper GI or small bowel. Appendix visualized posterior to the ascending colon without inflammatory change. Vanda pouch at the proximal sigmoid colon and LEFT lower quadrant colostomy. The descending colon is brought anterior to the colostomy site. Within the LEFT paracolic gutter there is a gas and fluid abscess collection that extends caudal into the pelvis along the pelvic sidewall. The collection measures up to 3.5 cm AP by 3.0 cm transverse by 12 cm cephalocaudal. Previous exam demonstrated fluid without compelling loculation at this level. Reference coronal reformatted images 47-96 punctate gas bubbles are visualized extending from level of the Vanda pouch toward the loculated collection strongly favoring the Vanda pouch staple line region as the source for the LEFT retroperitoneal/paracolic gutter abscess. Increased magnitude of mural thickening and perienteric inflammatory change at the level of the proximal to mid sigmoid colon. MESENTERIC: Mild edema in the lower LEFT abdomen mesenteric fat. ADRENAL / GENITOURINARY: Normal adrenal glands. Symmetric nephrograms and pyelograms. Multiple hypodense cortical lesions of the RIGHT kidney and solitary hypodense cortical lesion at the posterior midpole of the LEFT kidney without gross change. Unremarkable ureters and partially distended urinary bladder. Significantly enlarged prostate. RETROPERITONEAL: LEFT retroperitoneal abscess collection as described. Negative for lymphadenopathy. VASCULAR: Normal diameter abdominal aorta and iliac arteries with mild atherosclerotic plaque. Physiologic distention of the IVC. Normal variant circumaortic LEFT renal vein. BONES: Moderate L1 predominant anterior column compression fracture is chronic. Negative for suspicious osseous lesions. SOFT TISSUE: Unremarkable. IMPRESSION: #. The constellation of findings is concerning for breakdown at the level of the Vanda pouch staple line as etiology for the LEFT retroperitoneal/paracolic gutter loculated abscess collection as described. #. Results discussed with Dr. Dinero 01/14/2018 5:25 PM EDT
--- NOTE | 2018-01-14 17:47 | ED ---
Progress - Progress Note Progress Note: Patient was received as a sign out from Dr. Forte to Dr. Dinero pending Dr. Garcia consult and CT abd/pel. CT ABD/PEL IMPRESSION: #. The constellation of findings is concerning for breakdown at the level of the Vanda pouch staple line as etiology for the LEFT retroperitoneal/paracolic gutter loculated abscess collection as described. Results were communicated to Dr. Dinero by Dr. Lopez at 1725. This report was reviewed by ED physician. 1735 - Dr. Garcia is in ED, patient's case was discussed, Dr. Garcia accepts patient for admission. Dx of intra-abdominal abscess, postop Course/Dx - Course Course Of Treatment: Patient with recent colostomy placement with Vanda pouch and increased abdominal pain. On CT scan there is evidence of abscess adjacent to the suture line of the Vanda's pouch. Surgery came in and evaluated. IV antibiotics were given and there is operative plan by surgery. - Diagnoses Provider Diagnoses: Abdominal abscess - Provider Notifications Discussed Care Of Patient With: Jn Garcia Time Discussed With Above Provider: 17:35 Instructed by Provider To: Other - 1735 - Dr. Garcia is in ED, patient's case was discussed, Dr. Garcia accepts patient for admission. Discharge - Sign-Out/Discharge Documenting (check all that apply): Patient Departure - admit - Discharge Plan Condition: Good Disposition: ADMITTED TO [facility] Referrals: No Primary Care Phys,NOPCP [Primary Care Provider] - - Billing Disposition and Condition Condition: GOOD Disposition: Admitted to [facility] - Attestation Statements Document Initiated by Christal: Yes Documenting Scribe: Nicolas Soto Provider For Whom Christal is Documenting (Include Credential): Mohamud Dinero MD Scribe Attestation: Nicolas Benites scribed for Mohamud Dinero MD on 01/14/18 at 1902. Scribe Documentation Reviewed: Yes Provider Attestation: The documentation as recorded by the Nicolas ashley accurately reflects the service I personally performed and the decisions made by me, Mohamud Dinero MD
[2018-01-14] MEDS: oxyCODONE/Acetamin 5/325 MG* TAB PO PRN (20:13)
[2018-01-14] MEDS: NS 0.9% 1000 ML* 1,000 ML IV SCH (20:14)
[2018-01-14] MEDS: Piperacillin/Tazobactam VIAL*) 3.375 GM in NS 0.9% 100 ML* 100 ML IVPB SCH (22:01)
--- NOTE | 2018-01-14 22:38 | HP ---
CC: Dr. Garcia INTERVAL UPDATE HISTORY NOTE: DATE OF ADMISSION: 01/14/18 CHIEF COMPLAINT: Abdominal pain, loss of appetite. HISTORY OF PRESENT ILLNESS: Mr. Mota is a 57-year-old male who underwent a Vanda's procedure fo r diverticulitis approximately 2 weeks ago, went home about 3 days ago and has had increasing pain an d difficulty eating. He denies fever or chills at home. He is still having some stool from the osto my. PHYSICAL EXAMINATION GENERAL: He is a well-developed, well-nourished male, appears reasonably fit and energetic. Does no t appear acutely ill. VITAL SIGNS: Show a temperature of 98.7, blood pressure 130/83, pulse 97 and regular, respirations 1 8 and unlabored, O2 saturation 95%. ABDOMEN: Soft, flat, nondistended. He is tender on the left side of the abdomen around the area of the stoma. The midline incision is healing well. The stoma appears to be in good condition. SKIN: Warm, well perfused. He is not diaphoretic. DIAGNOSTIC STUDIES/LAB DATA: Laboratory studies show white blood count elevated at 18,900 with a le ft shift, hemoglobin is 12.8, platelet count 761, and his electrolytes are essentially normal. C-kaye ctive protein is quite elevated. Lactic acid is 0.8. CT scan shows there appears to be an abscess in the left gutter, a little below and lateral to the st tommy, and possibly arising in the region of the stapled Vanda's pouch. IMPRESSION: This is a 57-year-old male, status post resection for diverticulitis, now with intraabdo armando abscess in the region of the previous surgery. PLAN/RECOMMENDATIONS: He will be admitted for i ntravenous antibiotics and probable percutaneous drainage. He is understanding and agreeable to this approach, and we will admit him to the surgical floor. [id number]/[facility] #: [id number]
[2018-01-15] MEDS: oxyCODONE/Acetamin 5/325 MG* TAB PO PRN ×5 (01:37→21:40)
[2018-01-15] MEDS: Piperacillin/Tazobactam VIAL*) 3.375 GM in NS 0.9% 100 ML* 100 ML IVPB SCH ×3 (05:45→22:19)
[2018-01-15 06:25] LABS: Hematocrit 38 % (42-52); Hemoglobin 12.9 g/dl (14.0-18.0); Mean Corpuscular HGB Conc 34 g/dl (31-36); Mean Corpuscular Hemoglobin 31 pg (27-31); Mean Corpuscular Volume 91 fL (80-94); Mean Platelet Volume 7.1 fL (7.4-10.4); Platelet Count 691 10^3/ul (150-450); Red Blood Count 4.18 10^6/ul (4.00-5.40); Red Cell Distribution Width 14 % (10.5-15); White Blood Count 21.9 10^3/ul (3.5-10.8)
[2018-01-15 06:27] LABS: ABS Basophils 0.1 10^3/ul (0-0.2); ABS Eosinophils 0 10^3/ul (0-0.6); ABS Lymphocytes 1.6 10^3/ul (1.0-4.8); ABS Monocytes 1.7 10^3/ul (0-0.8); ABS Neutrophils 18.5 10^3/ul (1.5-7.7); ABS Nucleated RBC 0 10^3/ul; Eosinophil % 0.1 % (0-6); Lymphocyte % 7.3 % (25-47); Nucleated Red Blood Cells % 0
[2018-01-15 06:42] LABS: EGFR Non-African American 104.1 (>60)
[2018-01-15] MEDS: NS 0.9% 1000 ML* 1,000 ML IV SCH (08:42)
--- NOTE | 2018-01-15 09:12 | PN ---
Progress Note - Progress Note Date of Service: 01/15/18 SOAP: Subjective: History and Physical reviewed Discussed with Dr. Garcia He has been having pain on left lateral abdomen after eating--good appetite, ? fever at home, sweats at night. Ostomy has been working well and overall otherwise he feels well. CT reviewed Objective: Temp Pulse Resp BP Pulse Ox 98.6 F 107 18 115/57 96 01/15/18 07:23 01/15/18 07:23 01/15/18 08:40 01/15/18 07:23 01/15/18 07:23 Intake & Output 01/13/18 01/14/18 01/15/18 01/16/18 06:59 06:59 06:59 05:59 Intake Total 1230 900 Output Total 805 0 Balance 425 900 Weight 139 lb Intake: IV Fluids 1000 900 NS (0.9%) 900 IVPB 110 ABX - ZOSYN 110 Oral 120 Output: Urine 655 0 Colostomy 150 PEX: Comfortable Lungs are clear Abd is soft and non-distended. Incision is clean and closed-no redness. Bowel sounds are present. Ostomy is pink. Minimal discomfort on left lateral abdominal wall. No redness. Ext without edema Laboratory Results - last 24 hr 01/14/18 01/14/18 01/14/18 14:49 14:49 14:49 WBC 18.9 H RBC 4.21 Hgb 12.8 L Hct 38 L MCV 90 MCH 31 MCHC 34 RDW 14 Plt Count 761 H MPV 7.0 L Neut % (Auto) 76.0 Lymph % (Auto) 11.1 L [place] % (Auto) 12.1 H Eos % (Auto) 0.2 Baso % (Auto) 0.6 Absolute Neuts (auto) 14.4 H Absolute Lymphs (auto) 2.1 Absolute Monos (auto) 2.3 H Absolute Eos (auto) 0 Absolute Basos (auto) 0.1 Absolute Nucleated RBC 0 Nucleated RBC % 0 INR (Anticoag Therapy) APTT Sodium 133 L Potassium 4.7 Chloride 97 L Carbon Dioxide 26 Anion Gap 10 BUN 13 Creatinine 0.78 Est GFR ( Amer) 124.1 Est GFR (Non-Af Amer) 102.6 BUN/Creatinine Ratio 16.7 Glucose 103 H Lactic Acid 0.8 Calcium 9.4 Magnesium 1.9 Total Bilirubin 0.50 AST 14 ALT 20 Alkaline Phosphatase 95 Total Creatine Kinase 20 Troponin I 0.00 C-Reactive Protein 122.51 H Total Protein 7.1 Albumin 3.5 Globulin 3.6 Albumin/Globulin Ratio 1.0 Amylase 57 Lipase 52 01/14/18 01/15/18 01/15/18 14:49 05:56 05:56 WBC 21.9 H RBC 4.18 Hgb 12.9 L Hct 38 L MCV 91 MCH 31 MCHC 34 RDW 14 Plt Count 691 H D MPV 7.1 L Neut % (Auto) 84.6 H Lymph % (Auto) 7.3 L [place] % (Auto) 7.7 H Eos % (Auto) 0.1 Baso % (Auto) 0.3 Absolute Neuts (auto) 18.5 H Absolute Lymphs (auto) 1.6 Absolute Monos (auto) 1.7 H Absolute Eos (auto) 0 Absolute Basos (auto) 0.1 Absolute Nucleated RBC 0 Nucleated RBC % 0 INR (Anticoag Therapy) 1.14 H APTT 31.1 Sodium 133 L Potassium 4.3 Chloride 98 L Carbon Dioxide 25 Anion Gap 10 BUN 9 Creatinine 0.77 Est GFR ( Amer) 126.0 Est GFR (Non-Af Amer) 104.1 BUN/Creatinine Ratio 11.7 Glucose 94 Lactic Acid Calcium 9.1 Magnesium Total Bilirubin AST ALT Alkaline Phosphatase Total Creatine Kinase Troponin I C-Reactive Protein Total Protein Albumin Globulin Albumin/Globulin Ratio Amylase Lipase CT reviewed--Left lateral abscess--air in cavity. Assessment: S/P exlap for perforated sigmoid diverticulitis with colostomy Returns with elevated WBC and CT showing abscess-no other acute findings. Plan: IV abx-Zosyn Percutaneous drainage today with Interventional Radiology. IVF All discussed with patient and questions answered.
[2018-01-15] MEDS: Ondansetron INJ* 2 MG/ML VIAL IV PRN ×2 (11:49→21:44)
[2018-01-15] MEDS ORDERED: fentaNYL* 50 MCG/ML 2 ML VIAL (100 MCG VIAL) ONE (13:15)
--- NOTE | 2018-01-15 16:37 | RAD ---
CPT II Codes: 6100F INDICATION: Small abscess in the left pericolic gutter in a patient with leukocytosis COMPARISON: CT abdomen and pelvis January 14, 2018 PROCEDURE NOTE AND FINDINGS: The indication, alternatives therapies, benefits and risks of the procedure were explained to the patient and informed consent was obtained. The patient was brought to the CT suite and positioned in the supine position. . A time out was preformed with the technologist and nursing staff. The patient was prepped and draped in the usual sterile fashion. The patient was given intravenous fentanyl and local anesthesia with 1% lidocaine. Using CT guidance an 18-gauge needle was advanced into the rectal colic gutter fluid collection. Aspiration yielded approximately 10 mL of malodorous purulent fluid. A sample was sent for laboratory analysis. To further confirm this collection was outside the lumen of the bowel partially 20 mL of contrast was injected and appeared to track inferiorly along the paracolic gutter. Through the 18-gauge wire a 0.035 inch wire was advanced into the retrocolic collection. According to the Seldinger technique, a 10 Bulgarian pigtail drainage catheter was inserted into the left retrocolic fluid collection. At the catheter exit site a pursestring suture was tied and the suture was then secured to the abscess drainage catheter in a "Bret sandal" configuration. The site was then dressed with sterile gauze and Tegaderm. The patient tolerated the procedure well without incident. The patient was transported back to his inpatient room in stable condition. IMPRESSION: Uncomplicated CT guided 10-Bulgarian pigtail drain placement in the left retrocolic gutter abscess as described in the body of the report. Plan: 1. Follow-up laboratory analysis of sample. 2. The drain should be flushed with approximately 10 mL sterile saline every 8 hours. 3. Drainage bag to gravity.
[2018-01-15] MEDS ORDERED: Acetaminophen TAB* 325 MG PO PRN (22:28)
[2018-01-16] MEDS: oxyCODONE/Acetamin 5/325 MG* TAB PO PRN ×6 (01:39→23:12)
[2018-01-16] MEDS: NS 0.9% 1000 ML* 1,000 ML IV SCH (04:56)
[2018-01-16] MEDS: Piperacillin/Tazobactam VIAL*) 3.375 GM in NS 0.9% 100 ML* 100 ML IVPB SCH ×3 (05:40→21:46)
[2018-01-16 06:26] LABS: Hematocrit 33 % (42-52); Hemoglobin 11.3 g/dl (14.0-18.0); Mean Corpuscular HGB Conc 34 g/dl (31-36); Mean Corpuscular Hemoglobin 31 pg (27-31); Mean Corpuscular Volume 91 fL (80-94); Mean Platelet Volume 7.3 fL (7.4-10.4); Platelet Count 575 10^3/ul (150-450); Red Blood Count 3.64 10^6/ul (4.00-5.40); Red Cell Distribution Width 14 % (10.5-15); White Blood Count 16.7 10^3/ul (3.5-10.8)
--- NOTE | 2018-01-16 13:56 | PN ---
Progress Note - Progress Note Date of Service: 01/16/18 SOAP: Subjective: Left sided abdominal pain resolved after drainage Tolerating po Ostomy functioning Objective: Temp Pulse Resp BP Pulse Ox 98.4 F 91 16 114/60 97 01/16/18 11:06 01/16/18 11:06 01/16/18 12:44 01/16/18 11:06 01/16/18 11:06 Intake & Output 01/14/18 01/15/18 01/16/18 01/17/18 07:59 07:59 06:59 06:59 Intake Total 210 Output Total 200 Balance 10 Weight Intake: IV Fluids ABX - ZOSYN NS (0.9%) IVPB ABX - ZOSYN Oral 210 Pigtail Drain Output: Pigtail Drain Urine 200 Colostomy PEX: Comfortable Lungs are clear Abd is soft and non-distended. Ostomy is pink. Drain in place, dark green output Ext without edema Cultures noted Laboratory Results - last 24 hr 01/16/18 05:40 WBC 16.7 H RBC 3.64 L Hgb 11.3 L Hct 33 L MCV 91 MCH 31 MCHC 34 RDW 14 Plt Count 575 H D MPV 7.3 L Assessment: S/P sigmoid colon resection with colostomy, intra-abdominal abscess S/P IR drainage of abscess WBC down Plan: Continue IV abx Await cultures Regular diet Drainage
[2018-01-16] MEDS: Ondansetron INJ* 2 MG/ML VIAL IV PRN ×2 (16:40→22:07)
[2018-01-17] MEDS: NS 0.9% 1000 ML* 1,000 ML IV SCH (01:57)
[2018-01-17] MEDS: oxyCODONE/Acetamin 5/325 MG* TAB PO PRN ×5 (03:23→23:42)
[2018-01-17] MEDS: HYDROmorphone INJ1* 1 MG/ML SYRINGE IV PRN ×2 (03:32→13:24)
[2018-01-17] MEDS: Piperacillin/Tazobactam VIAL*) 3.375 GM in NS 0.9% 100 ML* 100 ML IVPB SCH ×3 (05:50→22:06)
--- NOTE | 2018-01-17 14:57 | PN ---
Progress Note - Progress Note Date of Service: 01/17/18 SOAP: Subjective: Without complaint Tolerating po Abdominal pain on left has resolved Ostomy functioning Objective: Temp Pulse Resp BP Pulse Ox 98.0 F 97 18 119/84 99 01/17/18 12:52 01/17/18 12:52 01/17/18 14:26 01/17/18 12:52 01/17/18 12:52 PEX: Comfortable Lungs are clear Abd is soft and non-distended. Bowel sounds are present. Drain intact with some thick brown fluid in bag. Ostomy pink. Wound intact Ext without edema Cultures noted- Assessment: Intra-abdominal abscess drainage, s/p exlap with sigmoid colon resection and colostomy for perforated sigmoid diverticula. One organism in cultures not sensitive to Zosyn--?? appropriate antibiotic Plan: ID consult Continue present IV abx and drainage D/c IVF Recheck WBC in AM
[2018-01-17] MEDS ORDERED: Vancomycin(*) 1,000 MG in NS 0.9% 250 ML* 250 ML IVPB ONE (15:30)
[2018-01-17] MEDS ORDERED: Vancomycin per Pharmacy* NOTE FOLLOW UP SCH (16:00)
[2018-01-17] MEDS: Ibuprofen TAB* 600 MG PO PRN (19:46)
[2018-01-18] MEDS: Vancomycin(*) 1,000 MG in NS 0.9% 250 ML* 250 ML IVPB SCH ×3 (04:29→22:31)
[2018-01-18] MEDS: oxyCODONE/Acetamin 5/325 MG* TAB PO PRN ×3 (04:34→20:46)
[2018-01-18] MEDS: Ibuprofen TAB* 600 MG PO PRN (04:35)
[2018-01-18 05:31] LABS: ABS Basophils 0.1 10^3/ul (0-0.2); ABS Eosinophils 0.3 10^3/ul (0-0.6); ABS Monocytes 1.5 10^3/ul (0-0.8); ABS Neutrophils 7.4 10^3/ul (1.5-7.7); ABS Nucleated RBC 0 10^3/ul; Eosinophil % 2.4 % (0-6); Hematocrit 33 % (42-52); Hemoglobin 11.1 g/dl (14.0-18.0); Lymphocyte % 17.8 % (25-47); Mean Corpuscular HGB Conc 34 g/dl (31-36); Mean Corpuscular Hemoglobin 31 pg (27-31); Mean Corpuscular Volume 91 fL (80-94); Mean Platelet Volume 6.8 fL (7.4-10.4); Nucleated Red Blood Cells % 0; Platelet Count 605 10^3/ul (150-450); Red Blood Count 3.61 10^6/ul (4.00-5.40); Red Cell Distribution Width 14 % (10.5-15); White Blood Count 11.3 10^3/ul (3.5-10.8)
[2018-01-18] MEDS: Piperacillin/Tazobactam VIAL*) 3.375 GM in NS 0.9% 100 ML* 100 ML IVPB SCH ×3 (06:07→23:00)
[2018-01-18] MEDS: Ondansetron INJ* 2 MG/ML VIAL IV PRN (13:31)
--- NOTE | 2018-01-18 14:28 | PN ---
Progress Note - Progress Note Date of Service: 01/18/18 SOAP: Subjective: Continues to feel better although having some crampy abdominal pain Voiding well Objective: Afeb X 24 hrs Temp Pulse Resp BP Pulse Ox 97.9 F 75 16 143/91 100 01/18/18 11:14 01/18/18 11:14 01/18/18 13:31 01/18/18 11:14 01/18/18 11:14 Intake & Output 01/16/18 01/17/18 01/18/18 01/19/18 06:59 06:59 06:59 06:59 Intake Total 3149 2580 482 Output Total 845 1370 450 Balance 2304 1210 32 Intake: IV Fluids 1809 12 ABX - ZOSYN NS (0.9%) 1809 12 IVPB 330 110 ABX - ZOSYN 330 110 Oral 990 2570 360 Pigtail Drain 20 10 Output: Pigtail Drain 100 20 Urine 670 1350 450 Colostomy 75 Other: Estimated Void Large # Voids 1 PEX: Comfortable Lungs are clear Abd is soft and slightly distended. Bowel sounds are present. Incision intact. Ostomy with brown soft stool in bag. Drain with small amount of thick brown fluid Ext without edema Laboratory Results - last 24 hr 01/18/18 05:13 WBC 11.3 H RBC 3.61 L Hgb 11.1 L Hct 33 L MCV 91 MCH 31 MCHC 34 RDW 14 Plt Count 605 H MPV 6.8 L Neut % (Auto) 65.5 Lymph % (Auto) 17.8 L Kinney % (Auto) 13.4 H Eos % (Auto) 2.4 Baso % (Auto) 0.9 Absolute Neuts (auto) 7.4 Absolute Lymphs (auto) 2.0 Absolute Monos (auto) 1.5 H Absolute Eos (auto) 0.3 Absolute Basos (auto) 0.1 Absolute Nucleated RBC 0 Nucleated RBC % 0 New cultures noted Assessment: S/P ex lap with sigmoid colon resection for perforated diverticula Intra-abdominal abscess s/p percutaneous drainage WBC normalizing Plan: Vancomcyin added to treat Enterococcus faecium ESBL e. coli covered by Zosyn Regular diet Drainage ID consult on return of Dr. Wallace on for recommendations for oral antibiotics on discharge.
[2018-01-18] MEDS: HYDROmorphone INJ1* 1 MG/ML SYRINGE IV PRN ×2 (15:25→19:12)
[2018-01-18 16:41] LABS: INR 1.02 (0.77-1.02)
[2018-01-18] MEDS ORDERED: Vancomycin Trough Check NOTE FOLLOW UP ONE (19:30)
[2018-01-18] MEDS: Heparin VIAL(*) 5000 UNITS/ML VIAL (FIVE THOUSAND) SUBCUT SCH (22:31)
[2018-01-19] MEDS: Piperacillin/Tazobactam VIAL*) 3.375 GM in NS 0.9% 100 ML* 100 ML IVPB SCH ×2 (00:31→07:52)
[2018-01-19] MEDS: HYDROmorphone INJ1* 1 MG/ML SYRINGE IV PRN ×2 (00:43→21:25)
[2018-01-19] MEDS: oxyCODONE/Acetamin 5/325 MG* TAB PO PRN ×4 (04:30→17:53)
[2018-01-19] MEDS: Vancomycin(*) 1,000 MG in NS 0.9% 250 ML* 250 ML IVPB SCH ×3 (05:51→21:35)
[2018-01-19] MEDS: Heparin VIAL(*) 5000 UNITS/ML VIAL (FIVE THOUSAND) SUBCUT SCH ×3 (05:59→21:31)
--- NOTE | 2018-01-19 09:01 | PN ---
Progress Note - Progress Note Date of Service: 01/19/18 SOAP: Subjective: Continues to feel better Tolerating regular diet Ostomy with stool and gas outpu Objective: Temp Pulse Resp BP Pulse Ox 98.3 F 69 18 137/74 98 01/19/18 07:33 01/19/18 07:33 01/19/18 08:26 01/19/18 07:33 01/19/18 07:33 Intake & Output 01/17/18 01/18/18 01/19/18 01/20/18 06:59 06:59 06:59 06:59 Intake Total 3149 2580 1842 Output Total 845 1370 1455 400 Balance 2304 1210 387 -400 Intake: IV Fluids 1809 12 NS (0.9%) 1809 12 IVPB 330 110 ABX - ZOSYN 330 110 Oral 990 2570 1720 Pigtail Drain 20 10 Output: Pigtail Drain 100 20 10 Urine 670 1350 1445 400 Colostomy 75 Other: Estimated Void Large # Voids 1 PEX: Comfortable Lungs are clear Abd is soft and slightly distended. Bowel sounds are present. Incision CDI. Ostomy pink. Drain in place, thick greenish fluid-10-15 cc in bag No labs Assessment: S/P perc drainage of abdominal abscess after emergent exlap with sigmoid colon resection for perforated sigmoid diverticula Abd abscess WBC trending down Afebrile Plan: Continue IV Vanco and Zosyn Await ID opinion regarding possible oral antibiotic choices Drainage Recheck labs tomorrow.
[2018-01-19] MEDS: Ibuprofen TAB* 600 MG PO PRN (11:26)
[2018-01-19] MEDS: Meropenem 1 GM PREMIX(*) 1 GM/50 ML BAG IV SCH ×2 (11:27→18:34)
[2018-01-19] MEDS ORDERED: Vancomycin Trough Check NOTE FOLLOW UP ONE (14:00)
[2018-01-20] MEDS: HYDROmorphone INJ1* 1 MG/ML SYRINGE IV PRN (00:09)
[2018-01-20] MEDS: oxyCODONE/Acetamin 5/325 MG* TAB PO PRN ×4 (00:12→22:03)
[2018-01-20] MEDS: Meropenem 1 GM PREMIX(*) 1 GM/50 ML BAG IV SCH ×4 (03:41→21:21)
[2018-01-20 05:59] LABS: Hematocrit 36 % (42-52); Hemoglobin 12.3 g/dl (14.0-18.0); Mean Corpuscular HGB Conc 34 g/dl (31-36); Mean Corpuscular Hemoglobin 31 pg (27-31); Mean Corpuscular Volume 90 fL (80-94); Mean Platelet Volume 7.1 fL (7.4-10.4); Platelet Count 703 10^3/ul (150-450); Red Blood Count 3.99 10^6/ul (4.00-5.40); Red Cell Distribution Width 14 % (10.5-15); White Blood Count 16.6 10^3/ul (3.5-10.8)
[2018-01-20] MEDS: Vancomycin(*) 1,000 MG in NS 0.9% 250 ML* 250 ML IVPB SCH ×3 (06:01→22:02)
[2018-01-20] MEDS: Heparin VIAL(*) 5000 UNITS/ML VIAL (FIVE THOUSAND) SUBCUT SCH ×3 (06:04→22:02)
[2018-01-20] MEDS: Ondansetron INJ* 2 MG/ML VIAL IV PRN (06:15)
[2018-01-20 06:20] LABS: EGFR Non-African American 124.4 (>60)
[2018-01-20 06:36] LABS: ABS Basophils 0.1 10^3/ul (0-0.2); ABS Eosinophils 0.1 10^3/ul (0-0.6); ABS Lymphocytes 1.7 10^3/ul (1.0-4.8); ABS Monocytes 1.4 10^3/ul (0-0.8); ABS Neutrophils 13.3 10^3/ul (1.5-7.7); ABS Nucleated RBC 0 10^3/ul; Eosinophil % 0.8 % (0-6); Lymphocyte % 10.1 % (25-47); Nucleated Red Blood Cells % 0
[2018-01-20] MEDS ORDERED: Iohexol 300* (CONTRAST) 10 ML SDV IV ONE (10:11)
--- NOTE | 2018-01-20 13:49 | PN ---
Progress Note - Progress Note Date of Service: 01/20/18 SOAP: Subjective: Some crampy abdominal pain last night but colostomy continues to put out stool and gas Tolerating po Drain in place Objective: Tmax 100.6 Temp Pulse Resp BP Pulse Ox 98.2 F 84 16 114/67 97 01/20/18 03:30 01/20/18 03:30 01/20/18 13:32 01/20/18 03:30 01/20/18 03:30 Intake & Output 01/18/18 01/19/18 01/20/18 01/21/18 06:59 06:59 06:59 06:59 Intake Total 2580 1842 1160 Output Total 1370 1455 1150 Balance 1210 387 10 Intake: IV Fluids 12 NS (0.9%) 12 IVPB 110 ABX - ZOSYN 110 Oral 2570 1720 1160 Pigtail Drain 10 Output: Pigtail Drain 20 10 0 Urine 1350 1445 1000 Colostomy 150 Other: Estimated Void Large Medium # Voids 1 PEX: COmfortable Lungs are clear Abd is soft and non-distended. Wound is clean and intact. Ostomy pink with stool in bag. Drain LLQ with thick brown fluid No tenderness Laboratory Results - last 24 hr 01/19/18 01/20/18 01/20/18 13:34 05:32 05:32 WBC 16.6 H RBC 3.99 L Hgb 12.3 L Hct 36 L MCV 90 MCH 31 MCHC 34 RDW 14 Plt Count 703 H D MPV 7.1 L Neut % (Auto) 80.1 Lymph % (Auto) 10.1 L Foster % (Auto) 8.6 H Eos % (Auto) 0.8 Baso % (Auto) 0.4 Absolute Neuts (auto) 13.3 H Absolute Lymphs (auto) 1.7 Absolute Monos (auto) 1.4 H Absolute Eos (auto) 0.1 Absolute Basos (auto) 0.1 Absolute Nucleated RBC 0 Nucleated RBC % 0 Sodium 136 Potassium 3.9 Chloride 104 Carbon Dioxide 24 Anion Gap 8 BUN 10 Creatinine 0.66 L Est GFR ( Amer) 150.5 Est GFR (Non-Af Amer) 124.4 BUN/Creatinine Ratio 15.2 Glucose 99 Calcium 8.7 Total Bilirubin 0.40 AST 19 ALT 32 Alkaline Phosphatase 97 Total Protein 6.7 Albumin 3.1 L Globulin 3.6 Albumin/Globulin Ratio 0.9 L Prealbumin 13 L Vancomycin Trough 13.0 Assessment: S/P percutaneous abscess drainage of abdominal abscess s/p sigmoid colectomy with colostomy WBC rising, low grade fever last night Abscess cultures reviewed and antibiotic coverage changed Plan: Repeat CT today Dr. Wallace to see today form ID COntinue present abx course
--- NOTE | 2018-01-20 15:58 | CONS ---
CONSULTATION REPORT: DATE OF CONSULT: 01/20/18 REQUESTING PHYSICIAN: Dr. Velazquez. CONSULTING SERVICE: Infectious Diseases. REASON FOR CONSULTATION: Fever and abdominal abscess. IMPRESSION: Perforated sigmoid diverticulitis, status post partial sigmoid colon resection and end sigmoid colostomy 12/26/17 returned with intraabdominal abscess, status post Interventional Radiology placed drain. Cultures from that abscess drains were growing an E. coli which is ESBL associate producer, Enterococcus faecium which is not vancomycin resistant, and 2 species of bacteroides. He has had continued output from the drain. His white count was coming down but it is back up today and he has had fever overnight. He has had occasional cough without shortness of breath. The differential diagnosis include progression of the intraabdominal process, pneumonia, less likely urinary tract infection, side effect of antibiotic including drug fever. PLAN/RECOMMENDATIONS: We will check a chest x-ray and repeat CT abdomen and pelvis with contrast to see if there has been progression of the abscess and/or need for repositioning of the drain. HISTORY OF PRESENT ILLNESS: This is a 57-year-old man who presented here from [facility] in mid December with perforated sigmoid diverticulitis and pneumoperitoneum. He was taken to the operating room by Dr. Velazquez for exploratory laparotomy and partial sigmoidectomy which he tolerated well. He was eating, drinking, and feeling fine at home, developed a fever, worsening abdominal pain and malaise. He came to the hospital on 01/14/18. He was febrile, had low grade fevers. A CT scan was repeated that showed an abscess in the left pericolic gutter which Dr. Faustin drained on 01/15/18 and has left the drain in; there is still purulent drainage. Cultures results as above. Dr. Velazquez discussed the case with Infectious Disease at [facility]. He has been on vancomycin and meropenem tolerating that well. His midline incision from initial surgery is healing well, there is no drainage or cellulitis there. He has occasional abdominal pain. His appetite is strong. His white count had been coming down from 19 on admission down to 11,000 on 01/18/18; today it is up to 16,000, he had a temperature of 101 overnight with some drenching sweats and chills. He had a cough which is a little bit better today, no shortness of breath. No oxygen requirement or chest pain. He has no rash anywhere. He has no dysuria or calf pain. PAST MEDICAL HISTORY: Diverticulitis with perforation of sigmoid, status post partial sigmoidectomy and sigmoidostomy. MEDICATIONS: 1. Tylenol. 2. Heparin subcutaneous injection. 3. Ibuprofen as needed. 4. Oxycodone as needed. 5. Vancomycin. 6. Meropenem 1 g every 8 hours. ALLERGIES: No known drug allergies. FAMILY HISTORY: No recurrent infections. Father had diverticulitis. 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 Past smoker, past heavy alcohol use. REVIEW OF SYSTEMS: All negative to a 14-point review of systems except as noted above in the history of present of illness. PHYSICAL EXAM: Vital Signs: Temperature of 37, heart rate is 80, respiratory rate 20, blood pressure 114/67, oxygen saturation 97% on room air. T-max 38.1 over night. In general, he is awake not in distress, eating breakfast. Neurologic: He is oriented x3. Follows all commands. HEENT: There is no conjunctival hemorrhage. Oropharynx without lesions. Neck is supple without mass. There is no cervical, supraclavicular, inguinal, axillary, or epitrochlear lymphadenopathy. Heart has regular rate and rhythm without murmurs , rubs, or gallops. Lungs: Clear to auscultation bilaterally. Abdomen: Soft , nontender, nondistended. There are bowel sounds present. The lower midline incision is well healed without surrounding erythema. There is a left lower quadrant drain with some greenish purulent material in the drain collection bag. There is no rebound tenderness. Skin: There is no rash or splinter hemorrhage. Musculoskeletal: There is no spine tenderness to palpation. DIAGNOSTIC STUDIES/LAB DATA: White blood cell count 16, hemoglobin 12, platelets 703, creatinine 0.6, CRP on 01/14/18 was 122. Please see impression and recommendations as outlined above, which I have discussed with Dr. Velazquez. Thanks for asking me to see Mr. Mota in consultation. [id number]/[facility] #: [id number] [facility]ITALDavey
[2018-01-20] MEDS ORDERED: NS 0.9% 250 ML* 250 ML ONE (21:57)
[2018-01-21] MEDS: Meropenem 1 GM PREMIX(*) 1 GM/50 ML BAG IV SCH ×3 (04:42→20:38)
[2018-01-21 05:08] LABS: Hematocrit 36 % (42-52); Hemoglobin 12.1 g/dl (14.0-18.0); Mean Corpuscular HGB Conc 34 g/dl (31-36); Mean Corpuscular Hemoglobin 31 pg (27-31); Mean Corpuscular Volume 90 fL (80-94); Mean Platelet Volume 6.7 fL (7.4-10.4); Platelet Count 739 10^3/ul (150-450); Red Blood Count 3.93 10^6/ul (4.00-5.40); Red Cell Distribution Width 14 % (10.5-15); White Blood Count 11.9 10^3/ul (3.5-10.8)
[2018-01-21 05:10] LABS: ABS Basophils 0.1 10^3/ul (0-0.2); ABS Eosinophils 0.4 10^3/ul (0-0.6); ABS Lymphocytes 2.7 10^3/ul (1.0-4.8); ABS Monocytes 1.7 10^3/ul (0-0.8); ABS Neutrophils 7.1 10^3/ul (1.5-7.7); ABS Nucleated RBC 0 10^3/ul; Eosinophil % 3.2 % (0-6); Lymphocyte % 22.4 % (25-47); Nucleated Red Blood Cells % 0
[2018-01-21] MEDS: Vancomycin(*) 1,000 MG in NS 0.9% 250 ML* 250 ML IVPB SCH ×3 (06:00→21:48)
[2018-01-21] MEDS: Heparin VIAL(*) 5000 UNITS/ML VIAL (FIVE THOUSAND) SUBCUT SCH ×3 (06:00→21:48)
--- NOTE | 2018-01-21 09:28 | PN ---
Progress Note - Progress Note Date of Service: 01/21/18 SOAP: Subjective: Without complaint today No fever overnight Tolerating po Objective: Afebrile for 24 hours Temp Pulse Resp BP Pulse Ox 98.1 F 67 18 148/69 97 01/21/18 08:19 01/21/18 08:19 01/21/18 08:19 01/21/18 08:19 01/21/18 08:19 Intake & Output 01/19/18 01/20/18 01/21/18 01/22/18 06:59 06:59 06:59 06:59 Intake Total 1842 1160 1740 Output Total 1455 1150 1330 Balance 387 10 410 Intake: IV Fluids 12 NS (0.9%) 12 IVPB 110 ABX - ZOSYN 110 Oral 1720 1160 1740 Output: Pigtail Drain 10 0 30 Urine 1445 1000 1050 Colostomy 150 250 Other: Estimated Void Medium Medium Date of Last Bowel 01/20/18 Movement Estimated Stool Amount Small PEX: Comfortable Lungs are clear Abd is soft and non-distended. Incision CDI. Ostomy pink, edematous. Drain in place, brown thick fluid in bag Bowel sounds are present. Laboratory Results - last 24 hr 01/21/18 05:02 WBC 11.9 H RBC 3.93 L Hgb 12.1 L Hct 36 L MCV 90 MCH 31 MCHC 34 RDW 14 Plt Count 739 H MPV 6.7 L Neut % (Auto) 59.4 Lymph % (Auto) 22.4 L Collin % (Auto) 13.9 H Eos % (Auto) 3.2 Baso % (Auto) 1.1 Absolute Neuts (auto) 7.1 Absolute Lymphs (auto) 2.7 Absolute Monos (auto) 1.7 H Absolute Eos (auto) 0.4 Absolute Basos (auto) 0.1 Absolute Nucleated RBC 0 Nucleated RBC % 0 CXR-no acute disease CT-small abscess 3 cm lower in pelvis, previous abscess appears well drained. No other acute findings. Assessment: S/P sigmoid colectomy with colostomy for perforated diverticula Intra-abdominal abscess-cultures noted Elevated WBC-improving today Plan: IR drainage of abscess today-discussed with patient IV abx Appreciate ID consult. Regular diet
[2018-01-21] MEDS ORDERED: fentaNYL* 50 MCG/ML 2 ML VIAL (100 MCG VIAL) ONE ×4 (10:12→12:15)
[2018-01-21] MEDS: oxyCODONE/Acetamin 5/325 MG* TAB PO PRN (15:20)
[2018-01-21] MEDS: Ondansetron INJ* 2 MG/ML VIAL IV PRN (23:00)
[2018-01-22] MEDS: Meropenem 1 GM PREMIX(*) 1 GM/50 ML BAG IV SCH ×3 (03:54→19:23)
[2018-01-22] MEDS ORDERED: Vancomycin Trough Check NOTE FOLLOW UP ONE (05:30)
[2018-01-22] MEDS: Heparin VIAL(*) 5000 UNITS/ML VIAL (FIVE THOUSAND) SUBCUT SCH ×3 (05:49→22:03)
[2018-01-22] MEDS: Vancomycin(*) 1,000 MG in NS 0.9% 250 ML* 250 ML IVPB SCH ×3 (06:33→21:59)
--- NOTE | 2018-01-22 08:18 | PN ---
Progress Note - Progress Note Date of Service: 01/22/18 Note: S/P Vanda's with abd abscess Afeb VS OK Voiding Holden po's well Stoma working well Passing liquid via anus No pain issues Abs soft, non-tender, incis w/ scabbing, no infection Abscess seems to be spontaneously draining well transanally Cont abx, Follow CBC
[2018-01-22] MEDS: Ondansetron INJ* 2 MG/ML VIAL IV PRN (17:35)
[2018-01-23] MEDS: Meropenem 1 GM PREMIX(*) 1 GM/50 ML BAG IV SCH ×3 (03:40→21:33)
[2018-01-23] MEDS: Vancomycin(*) 1,000 MG in NS 0.9% 250 ML* 250 ML IVPB SCH ×3 (05:35→22:44)
[2018-01-23] MEDS: Heparin VIAL(*) 5000 UNITS/ML VIAL (FIVE THOUSAND) SUBCUT SCH ×3 (06:11→22:51)
[2018-01-23 06:12] LABS: ABS Basophils 0.2 10^3/ul (0-0.2); ABS Eosinophils 0.3 10^3/ul (0-0.6); ABS Lymphocytes 2.1 10^3/ul (1.0-4.8); ABS Monocytes 1.3 10^3/ul (0-0.8); ABS Neutrophils 7.2 10^3/ul (1.5-7.7); ABS Nucleated RBC 0 10^3/ul; Eosinophil % 2.5 % (0-6); Hematocrit 35 % (42-52); Hemoglobin 12.1 g/dl (14.0-18.0); Lymphocyte % 18.8 % (25-47); Mean Corpuscular HGB Conc 35 g/dl (31-36); Mean Corpuscular Hemoglobin 31 pg (27-31); Mean Corpuscular Volume 89 fL (80-94); Mean Platelet Volume 6.7 fL (7.4-10.4); Nucleated Red Blood Cells % 0; Platelet Count 783 10^3/ul (150-450); Red Blood Count 3.92 10^6/ul (4.00-5.40); Red Cell Distribution Width 15 % (10.5-15)
--- NOTE | 2018-01-23 11:38 | PN ---
Progress Note - Progress Note Date of Service: 01/23/18 Note: S/P Vanda's with abd abscess Afeb VS OK Voiding Holden po's well Stoma working well Passing more loose white material trans-anally No pain issues Abs soft, non-tender, incis w/ scabbing, no infection WBC 11K Abscess seems to be spontaneously draining well transanally Follow CBC Cont abx,
[2018-01-23] MEDS: Ondansetron INJ* 2 MG/ML VIAL IV PRN (18:13)
[2018-01-24] MEDS: Meropenem 1 GM PREMIX(*) 1 GM/50 ML BAG IV SCH ×3 (04:47→20:16)
[2018-01-24] MEDS: Vancomycin(*) 1,000 MG in NS 0.9% 250 ML* 250 ML IVPB SCH ×3 (05:57→23:09)
[2018-01-24] MEDS: Heparin VIAL(*) 5000 UNITS/ML VIAL (FIVE THOUSAND) SUBCUT SCH ×3 (06:00→23:09)
--- NOTE | 2018-01-24 13:44 | PN ---
Progress Note - Progress Note Date of Service: 01/24/18 SOAP: Subjective: Continues to feel better Tolerating po and minimal abdominal anna Passing some whitish thicker material per rectum Ostomy functioning Objective: Temp Pulse Resp BP Pulse Ox 97.7 F 82 16 118/80 100 01/24/18 11:19 01/24/18 13:18 01/24/18 12:00 01/24/18 11:19 01/24/18 11:19 PEX Comfortable Lungs are clear Abd is soft and non-distended. Bowel sounds are present. Ostomy pink, stool in bag. Assessment: S/P percutaneous drainage of abdominal abscess s/p emergent sigmoid colectomy for perforated diverticula Cultures with enteroccocus and ESBL producing e. coli--now on appropriate antibiotics Remains afebrile Plan: D/C tomorrow Augmentin 875 mg po BID for 2 weeks Bactrim DS one po BID for 2 weeks Ostomy care Discussed with Dr. Wallace and patient.
[2018-01-24] MEDS: Ondansetron INJ* 2 MG/ML VIAL IV PRN (17:09)
[2018-01-25] MEDS: Meropenem 1 GM PREMIX(*) 1 GM/50 ML BAG IV SCH ×2 (04:34→12:17)
[2018-01-25] MEDS ORDERED: Vancomycin Trough Check NOTE FOLLOW UP ONE (06:00)
[2018-01-25] MEDS: Heparin VIAL(*) 5000 UNITS/ML VIAL (FIVE THOUSAND) SUBCUT SCH ×2 (06:21→14:33)
[2018-01-25] MEDS: Vancomycin(*) 1,000 MG in NS 0.9% 250 ML* 250 ML IVPB SCH (06:23)
[2018-01-25] MEDS: Ondansetron INJ* 2 MG/ML VIAL IV PRN (09:18)
--- NOTE | 2018-01-25 10:52 | PN ---
Progress Note - Progress Note Date of Service: 01/25/18 SOAP: Subjective: Patient seen at 0815 this AM' Doing well-no pain, colostomy working, eating well Objective: Temp Pulse Resp BP Pulse Ox 97.7 F 71 18 119/65 95 01/25/18 07:51 01/25/18 07:51 01/25/18 07:51 01/25/18 07:51 01/25/18 07:51 PEX: Comfortable Lungs are clear Abd is soft and non-distended. Bowel sounds are present. Ostomy pink Assessment: S/P abdominal abscess drainage after emergent colectomy Remains afebrile Plan: D/C home today 2 weeks of oral antibiotics Augmentin and Bactrim per ID Ostomy care Follow up in [facility] office in 2 weeks-appt made
[2018-01-25] MEDS ORDERED: Vancomycin(*) 1,000 MG in NS 0.9% 250 ML* 250 ML IVPB SCH (12:00)
[2018-01-25 16:18] VITALS: BP 101/53
[2018-01-26] MEDS ORDERED: Vancomycin Trough Check NOTE FOLLOW UP ONE (12:00)
--- NOTE | 2018-01-27 20:47 | DS ---
\DISCHARGE SUMMARY: DATE OF ADMISSION: 01/14/18 DATE OF DISCHARGE: 01/25/18 PRINCIPAL DIAGNOSIS: Abdominopelvic abscess status post emergent colectomy. PROCEDURE PERFORMED: Percutaneous interventional radiology drainage of abdominal abscess. CONDITION ON DISCHARGE: Good. DISPOSITION: Home. MEDICATIONS: Include: 1. Augmentin 875 mg p.o. b.i.d. for 14 days. 2. Bactrim double strength 1 p.o. b.i.d. for 14 days. He was allowed to eat a regular diet. No pain medicine was given. FOLLOWUP: A followup appointment was made to be seen in the [facility] in 2 weeks. No specific wound care was necessary and he was already well versed in ostomy care. BRIEF HISTORY: Mr. Avtar Mota is a 57-year-old gentleman who underwent an emergent exploratory laparotomy with the sigmoid colon resection for perforated diverticula over a month ago. He did colostomy formation and a prolonged recovery, but he was discharged home 1 week prior to his presentation to the emergency room. He presented back to the emergency room with fevers and abdominal discomfort. He was noted to have an elevated white blood cell count and was subsequently admitted to the surgical service. On admission, he was started on IV Zosyn. He was kept n.p.o. A CT scan of the abdomen and pelvis was obtained, which showed an abscess along the lateral left lower abdominal gutter extending down into the pelvis. This had been a previous site of a fluid collection noted on the initial CT scan. Hospital day #1, he underwent interventional radiology drainage with catheter placement of this abscess. Culture subsequently returned back as ESBL E. Coli and Enterococcus faecium along with anaerobes. Antibiotic coverage was then switched to vancomycin and meropenem. After these antibiotics were switched, the fever defervesced, and his white count trended down to normal. His pain resolved and he was tolerating regular diet. He was discharged home with the above oral antibiotics and followup. It should be noted the drain was removed prior to discharge. He had undergone a second CAT scan, which showed what appeared to be communication of the abscess cavity with the distal de-functionalized rectal stump, which was draining through the rectum and per anus. [id number]/[facility] #: [id number] [facility]
== END 2018-01-25 16:45 | disposition home or self-care (01) | DRG 711 ==
LOC: ED 12:39 → SSU 18:31
PROVIDERS: ADMIT Surgery; ATTEND Surgery
PROC: 0D9N30Z Drainage of Sigmoid Colon with Drainage Device, Percutaneous Approach (ICD-10-PCS; principal; 2018-01-15)
PROC: 0W9H30Z Drainage of Retroperitoneum with Drainage Device, Percutaneous Approach (ICD-10-PCS; 2018-01-15)
DX: T81.49XA Infection following a procedure, other surgical site, initial encounter (principal); K63.0 Abscess of intestine; K68.11 Postprocedural retroperitoneal abscess; R63.0 Anorexia; K64.9 Unspecified hemorrhoids; N40.0 Benign prostatic hyperplasia without lower urinary tract symptoms; B95.2 Enterococcus as the cause of diseases classified elsewhere; B96.20 Unspecified Escherichia coli [E. coli] as the cause of diseases classified elsewhere; Z72.89 Other problems related to lifestyle; Z93.3 Colostomy status; Z83.79 Family history of other diseases of the digestive system; Z87.442 Personal history of urinary calculi; Z83.3 Family history of diabetes mellitus; Z87.891 Personal history of nicotine dependence; Z90.49 Acquired absence of other specified parts of digestive tract; Z68.21 Body mass index [BMI] 21.0-21.9, adult
CPT/HCPCS: 36415; 49406; 71046; 74176; 74177; 76000; 80048; 80053; 80202; 82150; 82272; 82550; 83605; 83690; 83735; 84134; 84484; 85025; 85027; 85610; 85730; 86140; 87070; 87076; 87077; 87186; 87205; 87640; 87641; 88173; 93005; 99284; A9270-GY; C1729; C1769; J1170; J1644; J2185; J2270; J2405; J2543; J3010; J3370; Q9967

== ENCOUNTER 2018-02-28 10:32 | Emergency (ER) | payer MEDICAID ==
--- OUTSIDE RECORDS SUMMARY | 2018-02-28 10:42 | XMS REPORT | Continuity of Care Document ---
:1960 External Reference #:[id number] Author Name Tosha Chacko Care Team Providers Name Role Phone Chong Mcallister M.D. 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 Payers Type Date Identification Numbers Payment Provider Subscriber Policy Number: [id number] Medicaid [employer]tar [employer]ota JR Group Name: 1 1 [address] PayID: [id number] [place] [address] Effective: 2015 Policy Number: [facility] [employer] Fund Avtar Mota [id number] JR Onset: 2015 Group Number: [id number] [address] [address] [place]: [id number] [address] Advance Directives Description No Information Available Problems Description No Information Family History Date Family Member(s) Problem(s) Comments General Cancer General Diabetes Social History Type Date Description Comments Sex Unknown Lives With Alone Occupation [employer] Use Denies alcohol use Tobacco Use Start: Unknown Patient is a current smoker, smokes every day Tobacco Use Start: Unknown Heavy tobacco smoker (more than 10 cigarettes/day) Tobacco Use Start: Unknown End: Patient is a former stoped 12/26/17 Unknown smoker Smoking Status Reviewed: 02/10/18 Patient is a former stoped 12/26/17 smoker Exercise Type/Frequency Exercises regularly Allergies, Adverse Reactions, Alerts Description No Known Drug Allergies Medications Medication Date Status Form Strength Qnty SIG Indications Ordering Provider Ibuprofen / Active Tablets 800mg by mouth Unknown 0000 three times a day as needed Amoxicillin/Clavu 02/08/ Hx Tablets 875-125mg 20tabs take one Hiram Li lanate Potassium 2018 tablet by Marcus amezcua MD twice a day Sulfamethoxazole/ 02/08/ Hx Tablets 800-160mg 28tabs one by Hiram Li Trimethoprim DS 2018 mouth Marcus twice a MD day Neurontin 12/18/ Hx Capsules 300mg 30caps 1 by Chong 2016 - mouth Esvin, 01/21/ every M.D. 2016 night at bedtime Cyclobenzaprine / Hx Tablets 5mg 1 tablet Unknown HCL 0000 - by mouth 01/21/ three 2016 times a day as needed Immunizations Description No Information Available Vital Signs Date Vital Result Comment 02/10/2018 1:15pm Height 67 inches 5'7" Weight 143.00 lb Heart Rate 76 /min BP Systolic Recheck 164 mmHg BP Diastolic Recheck 90 mmHg Respiratory Rate 16 /min Body Temperature 98.6 F BMI (Body Mass Index) 22.4 kg/m2 01/23/2016 9:07am Height 67 inches 5'7" Weight 150.00 lb Heart Rate 76 /min BP Systolic Recheck 128 mmHg BP Diastolic Recheck 84 mmHg Respiratory Rate 16 /min Body Temperature 98.0 F BMI (Body Mass Index) 23.5 kg/m2 12/19/2015 8:46am Height 67 inches 5'7" Weight 150.00 lb Heart Rate 80 /min BP Systolic Recheck 150 mmHg BP Diastolic Recheck 90 mmHg Respiratory Rate 16 /min Body Temperature 97.8 F BMI (Body Mass Index) 23.5 kg/m2 Results Test Date Facility Test Result H/L Range Note Laboratory test 12/26/2017 [facility] Surgical SEE RESULT [address] [address] [phone] Wound 12/26/2017 [facility] Wound/Misc SEE RESULT 2, 3 Culture/Sensi [address] [place] [address] Stain [phone] Laboratory test 12/26/2017 [facility] MRSA/S. aureus SEE RESULT [address] [place] [address] [phone] Anaerobic Culture SEE RESULT BELOW 5 1 SEE RESULT BELOW Name: AVTAR MOTA DOB: [address]: Hiram Velazquez MD Acct: [id number] Unit: [id number] AGE: 57 Location: [place] [address] Re12/27/17 SEX: M Status: ADM IN SPEC: [id number] HAKAN: 12/26/17- SUBM DR: Hiram Velazquez MD REQ: [id number] RECD: 12/26/17 STATUS: SOUT _ ORDERED: LEVEL 5 FINAL DIAGNOSIS Sigmoid colon, partial colectomy: -- Diverticulosis with acute and chronic diverticulitis with abscess formation, and extensive acute and chronic serositis. -- No evidence of neoplasia is identified. PRE-OPERATIVE DIAGNOSIS Perforated diverticulum GROSS DESCRIPTION The specimen is received in formalin labeled, Portion of Sigmoid Colon, and consists of a 4.0 by up to 3.9 cm portion of intestinal tissue with abundant adherent brown queen fat. There is a 0.4 cm slitlike perforation on the mesenteric surface. The mesentery is partially surfaced by moderate camp-white fibropurulent exudate with a small amount of adherent red-brown blood clot. The serosa is predominantly smooth with scant fibropurulent exudate. Sectioning reveals a few diverticula, one of which is associated with a dusky camp abscess. The mucosa is glistening camp-pink with normal folds. Tool Operator sections are submitted in cassettes A through F as follows: A-margins, B-diverticulum, C and D-inked perforation and E and F-abscess Signed by and Reported on: Maury Milan MD 1047 END OF REPORT DEPARTMENT OF PATHOLOGY, [address] [place] [address] Maury Milan M.D. Director [facility] # [id number] 2 [facility] SEE RESULT BELOW Name: AVTAR MOTA : [address]: Hiram Velazquez MD Acct: [id number] Unit: [id number] AGE: 57 Location: [place] Re12/26/17 SEX: M Status: REG [facility] [place] SPEC: [id number] HAKAN: 12/26/17 [facility] DR: Hiram Velazquez MD REQ: [id number] RECD: 12/26/17 STATUS: RES OT DR: Staci Primary Care Phys,NOPCP _ SOURCE: WOUND SPDESC:PERITONEAL ORDERED: Anaerobic Cult, Culture Stain COMMENTS: GAL RIVERA QUERIES: Specimen Description ABCESS Procedure Result Reported Site Anaerobic Culture PENDING Wound/Misc Gram Stain Preliminary 12/26/17 1958 ML 4+ Neutrophils 1+ Epithelial Cells 2+ Gram Positive Cocci 2+ Gram Negative Bacilli Wound/Misc Culture PENDING * ML - Main Lab . END OF REPORT DEPARTMENT OF PATHOLOGY, [address] [place] [address] Maury Milan M.D. Director [facility] # [id number] 4 SEE RESULT BELOW Name: AVTAR MOTA : [address]: Hiram Velazquez MD Acct: [id number] Unit: [id number] AGE: 57 Location: [place] [address] Re12/27/17 SEX: M Status: ADM David SPEC: [id number] HAKAN: 12/26/17 [facility] DR: Hiram Velazquez MD REQ: [id number] RECD: 12/26/17 STATUS: RES OTHR DR: Staci Primary Care Phys,NOPCP _ SOURCE: WOUND SPDESC:PERITONEAL ORDERED: Anaerobic Cult, MRSA/SA SSTI, Culture Stain COMMENTS: PERITONWAL ABCESS QUERIES: Specimen Description ABCESS Procedure Result Reported Site Anaerobic Culture PENDING MRSA/S. aureus SSTI PCR Final 12/27/17- 0132 ML Organism 1 MRSA NEGATIVE Organism 2 S.AUREUS NEGATIVE Wound/Misc Gram Stain Final 12/27/17- 0707 ML 4+ Neutrophils 1+ Epithelial Cells 2+ Gram Positive Cocci 1+ Gram Negative Bacilli Wound/Misc Culture PENDING * ML - Main Lab . END OF REPORT DEPARTMENT OF PATHOLOGY, [address] [place] [address] Maury Milan M.D. Director [facility] # [id number] 5 SEE RESULT BELOW Name: AVTAR MOTA : [address]: Hiram Velazquez MD Acct: [id number] Unit: [id number] AGE: 57 Location: [place] [address] Re12/27/17 SEX: M Status: ADM IN SPEC: [id number] HAKAN: 12/26/17 [facility] DR: Hiram Velazquez MD REQ: [id number] RECD: 12/26/17 STATUS: CONNOR HERNANDEZ DR: Staci Primary Care Phys,NOPCP _ SOURCE: WOUND SPDESC:PERITONEAL ORDERED: Anaerobic Cult, MRSA/SA SSTI, Culture Stain COMMENTS: PERITONEAL ABSCESS QUERIES: Specimen Description ABCESS Procedure Result Reported Site Anaerobic Culture Final 12/30/17- 1035 ML PRESUMPTIVE IDENITIFICATION FOR ANAEROBIC ORGANISMS: EGGERTHELLA LENTA ACTINOMYCES TURICENSIS Anaerobic sensitivities are not routinely performed. Positive isolates will be saved for one week. Please call the Microbiology Laboratory if susceptibility testing is needed. MRSA/S. aureus SSTI PCR Final 12/27/17- 0132 ML Organism 1 MRSA NEGATIVE Organism 2 S.AUREUS NEGATIVE Wound/Misc Gram Stain Final 12/27/17- 0707 ML 4+ Neutrophils 1+ Epithelial Cells 2+ Gram Positive Cocci 1+ Gram Negative Bacilli Wound/Misc Culture Final 12/30/17- 1035 ML Organism 1 ESCHERICHIA COLI Quantity 1+ CONTINUED ON NEXT PAGE DEPARTMENT OF PATHOLOGY, [address] [place] [address] Maury Milan M.D. Director [facility] # [id number] Patient: AVTAR MOTA [id number] (Continued) Specimen: [id number] Collected: 12/26/17 Received: 12/26/17 (Continued) Procedure Result Reported Site Wound/Misc Culture Final (continued) 12/30/171034 1. ESCHERICHIA COLI M.I.C. RX --------- ------ Ampicillin <=2 S Cefazolin <=4 S Cefepime <=1 S Ceftriaxone <=1 S Ciprofloxacin <=0.25 S Gentamicin <=1 S Levofloxacin <=0.12 S Meropenem <=0.25 S Tetracycline <=1 S Pipercillin/Tazobactam <=4 S Trimethoprim/Sulfamethoxazole <=20 S Amoxicillin/Clavulanic Acid <=2 S Aztreonam <=1 S Contact the Microbiology Department for any additional antibiotic reporting. * ML - Main Lab . END OF REPORT DEPARTMENT OF PATHOLOGY, [address] [place] [address] Maury Milan M.D. Director [facility] # [id number] Procedures Date Code Description Status 12/26/2017 81027 Colectomy Partial W/End Colostomy & Close Distal Segment Completed 12/26/2017 91185 Colectomy Partial W/End Colostomy & Close Distal Segment Completed Encounters Type Date Location Provider Dx Diagnosis Office Visit 01/20/2018 [facility] Vini Bah T81.43xA Infct fol a 7:17a Infectious Nick Dallas procedure, organ Diseases and space surgical site, init R05 Cough Office Visit 01/03/2018 [facility] Z48.815 Encntr for 9:47a shanon Gabriel, WORD PROCESSING SPECIALIST surgical aftcr Hospitalists following surgery on the [facility] sys D72.829 Elevated white blood cell count, unspecified K56.7 Ileus, unspecified J98.11 Atelectasis Office Visit 01/02/2018 [facility] Z48.815 Encntr for 9:46a shanon Gabriel NP surgical aftcr Hospitalists following surgery on the dgstv sys D72.829 Elevated white blood cell count, unspecified K56.7 Ileus, unspecified J98.11 Atelectasis Office Visit 01/01/2018 [facility] Z48.815 Encntr for 9:46a shanon Gabriel PA surgical aftcr Hospitalists following surgery on the dgstv sys K56.7 Ileus, unspecified D72.829 Elevated white blood cell count, unspecified J98.11 Atelectasis E87.6 Hypokalemia Office Visit 12/26/2017 Surgical Hiram Li K57.20 Dvtrcli of lg int 7:00a [facility] Marcus w perforation and [facility] abscess w/o bleeding K57.20 Dvtrcli of lg int w perforation and abscess w/o bleeding Office Visit 01/23/2016 9:00a Orthopedic Chong Mcallister M62.830 [facility] AT .D. [facility] M62.830 Muscle spasm of back Office Visit 12/19/2015 8:30a Orthopedic Chong Mcallister M62.830 [facility] AT .D. [facility] M62.830 Muscle spasm of back S29.012A Strain of muscle and tendon of back wall of thorax, init S29.012A Strain of muscle and tendon of back wall of thorax, init Plan of Treatment Future Appointment(s):04/14/2018 1:30 pm - Hiram Velazquez MD at [facility] AT [id number]/29/2018 - Hiram Velazquez MDK57.20 Diverticulitis of large intestine with perforation and absceFollow up:2 months
--- NOTE | 2018-02-28 10:43 | ED ---
Abdominal Pain/Male - HPI Summary HPI Summary: The pt is a 57 y/o male with a hx of diverticulitis presenting to [facility] c/o LLQ pain since 3 days ago. The pain rated 2/10 in severity is aggravated by eating and radiates to the scrotum. He had abdominal surgery on 12/26/[address] Velazquez and got discharged after 2 weeks. Afterwards they found an abscess which got drained. He called Dr. Velazquez today. He reports fall4 days ago but denies scrotal swelling, fever, nausea and vomiting. Home Medications Medication Instructions Recorded Confirmed Type NK [No Home Medications Reported] 02/28/18 02/28/18 History - History of Current Complaint Chief Complaint: EDAbdPain Stated Complaint: ABD PAIN Time Seen by Provider: 02/28/18 10:40 Hx Obtained From: Patient Onset/Duration: Lasting Days - 3 days, Still Present Timing: Constant Severity Initially: Mild Severity Currently: Mild Pain Intensity: 2 Pain Scale Used: 0-10 Numeric Location: Discrete At: LLQ Radiates: Yes Radiates to: Inguinal Aggravating Factor(s): Food Alleviating Factor(s): Nothing Associated Signs And Symptoms: Negative: Fever, Nausea, Vomiting - Allergies/Home Medications Allergies/Adverse Reactions: Allergies Allergy/AdvReac Type Severity Reaction Status Date / Time No Known Allergies Allergy Verified 02/28/18 10:33 Home Medications: Home Medications NK [No Home Medications Reported] 02/28/18 [History Confirmed 02/28/18] PMH/Surg Hx/FS Hx/Imm Hx Previously Healthy: No Endocrine/Hematology History: Denies: Hx Diabetes Cardiovascular History: Denies: Hx Hypertension GI History: Reports: Hx Diverticulosis - diverticulitis with perforation History: Reports: Hx Benign Prostatic Hyperplasia, Hx Kidney Stones, Other Problems/Disorders - enlarged prostate Denies: Hx Renal Disease Sensory History: Reports: Hx Contacts or Glasses Denies: Hx Hearing Aid Opthamlomology History: Reports: Hx Contacts or Glasses - Cancer History Cancer Type, Location and Year: None reported - Surgical History Surgery Procedure, Year, and Place: Vanda's procedure for diverticulitis Hx Anesthesia Reactions: No Infectious Disease History: No Infectious Disease History: Denies: Traveled Outside the [place] in Last 30 Days - Family History Known Family History: Positive: Diabetes - father, Other - diverticulitis - father Negative: Cardiac Disease, Hypertension - Social History Occupation: Unemployed Lives: Alone Alcohol Use: None Hx Substance Use: Yes Substance Use Type: Reports: Marijuana Substance Use Comment - Amount & Last Used: 12/19/17 Smoking Status (MU): Former Smoker Review of Systems Negative: Fever Positive: Abdominal Pain. Negative: Vomiting, Nausea Genitourinary: Negative - Scrotal swelling All Other Systems Reviewed And Are Negative: Yes Physical Exam - Summary Physical Exam Summary: Appearance: Well appearing, no pain distress Skin: warm, dry, reflects adequate perfusion Head/face: normal Eyes: EOMI, JACQUELINE ENT: normal Neck: supple, non-tender Respiratory: CTA, breath sounds present Cardiovascular: RRR, pulses symmetrical Abdomen: soft, diffuse abd tenderness, colostomy bag in the LLQ Bowel sounds : present Musculoskeletal: normal, strength/ROM intact Neuro: normal, sensory motor intact, A&Ox3 Triage Information Reviewed: Yes Vital Signs On Initial Exam: Initial Vitals Temp Pulse Resp BP Pulse Ox 98.3 F 91 18 136/90 98 02/28/18 10:33 02/28/18 10:33 02/28/18 10:33 02/28/18 10:33 02/28/18 10:33 Vital Signs Reviewed: Yes Diagnostics - Vital Signs Vital Signs Temp Pulse Resp BP Pulse Ox 02/28/18 10:33 98.3 F 91 18 136/90 98 - Laboratory Result Diagrams: 02/28/18 11:20 02/28/18 11:20 Lab Statement: Any lab studies that have been ordered have been reviewed, and results considered in the medical decision making process. - CT Abd/Pel CT CT Interpretation Completed By: Radiologist - IMPRESSION: Previously identified abscess in the left retroperitoneum is no longer present. No new abscess is noted. No bowel obstruction is noted. The ED physician reviewed this radiology report. Re-Evaluation - Re-Evaluation First Eval Re-Evaluation Time: 13:45 Change: Improved - I discussed the discharge plan with the pt. Abdominal Pain Fem Course/Dx - Course Course Of Treatment: A 57 year-old M with a hx of diverticulitis presents to the ED with a CC of LLQ pain since 3 days ago. He reports a fall 4 days ago but denies scrotal swelling, fever, nausea and vomiting. A physical exam revealed diffuse abdominal tenderness and a colostomy bag in the LLQ. An abd/pel CT is unremarkable. In the ED course, pt was given N.s 0.9% 1000ml IV and Iohexol 91 ml IV which improved the symptoms. I discussed the care of the pt with Dr. Hiram Velazquez who agreed to see the pt in is office. Patient will be discharged with a final Dx of unspecified abd pain. Pt is agreeable with this plan. Allergies noted. - Diagnoses Differential Diagnosis/HQI/PQRI: Diverticulitis, Pancreatitis, Ureteral Stone Provider Diagnoses: Nonspecific abdominal pain - Provider Notifications Discussed Care Of Patient With: Hiram Velazquez Time Discussed With Above Provider: 13:43 Instructed by Provider To: Have Pt Call For Appt. Discharge - Sign-Out/Discharge Documenting (check all that apply): Patient Departure - DC - Discharge Plan Condition: Stable Disposition: HOME Patient Education Materials: Abdominal Pain (ED) Referrals: Hiram Velazquez MD [Medical Doctor] - Additional Instructions: Follow up with Dr. Velazquez as soon as possible. Return to the ED for any new or worsening symptoms. - Billing Disposition and Condition Condition: STABLE Disposition: Home - Attestation Statements Document Initiated by Roqueibe: Yes Documenting Scribe: Lyubov Frey Provider For Whom Christal is Documenting (Include Credential): Dr. Russel Delgado MD Scribe Attestation: Lyubov Benites scribed for Dr. Russel Delgado MD on 02/28/18 at 1403. Scribe Documentation Reviewed: Yes Provider Attestation: The documentation as recorded by the Lyubov ashley accurately reflects the service I personally performed and the decisions made by me, Dr. Russel Delgado MD Status of Scribe Document: Viewed
[2018-02-28] MEDS ORDERED: NS 0.9% 1000 ML* 1,000 ML IV ONE (10:48)
[2018-02-28 11:28] LABS: ABS Basophils 0 10^3/ul (0-0.2); ABS Eosinophils 0.2 10^3/ul (0-0.6); ABS Lymphocytes 2.1 10^3/ul (1.0-4.8); ABS Monocytes 0.9 10^3/ul (0-0.8); ABS Neutrophils 5.5 10^3/ul (1.5-7.7); ABS Nucleated RBC 0 10^3/ul; Eosinophil % 2.2 %; Hematocrit 40 % (42-52); Hemoglobin 13.3 g/dl (14.0-18.0); Lymphocyte % 23.8 %; Mean Corpuscular HGB Conc 33 g/dl (31-36); Mean Corpuscular Hemoglobin 30 pg (27-31); Mean Corpuscular Volume 91 fL (80-94); Mean Platelet Volume 6.6 fL (7.4-10.4); Nucleated Red Blood Cells % 0; Platelet Count 516 10^3/ul (150-450); Red Blood Count 4.39 10^6/ul (4.00-5.40); Red Cell Distribution Width 16 % (10.5-15); White Blood Count 8.6 10^3/ul (3.5-10.8)
[2018-02-28 11:39] LABS: Activated Partial Thrombo Time 30.3 seconds (26.0-36.3); INR 0.9 (0.77-1.02)
[2018-02-28 11:47] LABS: Albumin/Globulin Ratio 1.3 (1-3); BUN/Creatinine Ratio 18.5 (8-20); C Reactive Protein 18.26 mg/L (<8.01); Calcium 9.4 mg/dL (8.6-10.3); EGFR Non-African American 98.2 (>60); Globulin 3.2 g/dL (2-4); Potassium 4.3 mmol/L (3.5-5.0); Total Bilirubin 0.5 mg/dL (0.2-1.0); Total Protein 7.2 g/dL (6.4-8.9)
[2018-02-28] MEDS ORDERED: Iohexol 300* (CONTRAST) 10 ML SDV IV ONE (12:10)
[2018-02-28 12:51] LABS: Urine Appearance Cloudy; Urine Bilirubin Negative (Negative); Urine Blood Negative (Negative); Urine Color Yellow; Urine Glucose Negative (Negative); Urine Ketones Negative (Negative); Urine Nitrite Negative (Negative); Urine Protein Negative (Negative); Urine Specific Gravity 1.019 (1.010-1.030); Urine Urobilinogen Negative (Negative)
[2018-02-28 14:29] VITALS: BP 138/96
== END 2018-02-28 14:28 | disposition home or self-care (01) ==
LOC: ED 10:32
DX: R10.32 Left lower quadrant pain (principal); Z87.891 Personal history of nicotine dependence
CPT/HCPCS: 36415; 74177; 80053; 81003; 83605; 83690; 85025; 85610; 85730; 86140; 96360; 96361; 99283; Q9967

== ENCOUNTER 2018-05-17 10:42 | Emergency (ER) | payer OTHER ==
[2018-05-17] MEDS ORDERED: HYDROcodone/ACETAMIN 5-325 MG* 1 TAB PO ONE (12:57)
[2018-05-17 13:38] VITALS: BP 115/86
--- NOTE | 2018-05-17 15:28 | ED ---
Lower Extremity - HPI Summary HPI Summary: Patient is a 57-year-old male presenting to the ED with right hip pain after a fall 2 days ago. He states since the fall he has been expressing pain in the most anterior portion of the thigh just below the pelvis with ecchymosis. He states the pain is not been worsening, however continues. He has been self- medicating at home with his at home oxycodone. However he took his last dose this morning and is requesting more pain control. He denies any numbness or tingling in the ipsilateral leg. He denies any temperature changes or pallor. He endorses ecchymosis over the right anterior thigh medial groin. Denies any pain with urination. - History of Current Complaint Chief Complaint: EDHipPelvisInjury Stated Complaint: FELL/R HIP PAIN Time Seen by Provider: 05/17/18 12:41 Hx Obtained From: Patient Mechanism Of Injury: Direct Blow Onset of Pain: Hours, Days Onset/Duration: Days Severity Initially: Moderate Severity Currently: Moderate Pain Intensity: 7 Pain Scale Used: 0-10 Numeric Timing: Constant Location: Is Discrete @ - right anterior and medial thigh Associated Signs And Symptoms: Positive: Swelling, Bruising Aggravating Factor(s): Standing, Ambulation Alleviating Factor(s): Rest Able to Bear Weight: No - Risk Factors Gout Risk Factors: Negative DVT Risk Factors: Negative Septic Arthritis Risk Factor: Negative - Allergies/Home Medications Allergies/Adverse Reactions: Allergies Allergy/AdvReac Type Severity Reaction Status Date / Time No Known Allergies Allergy Verified 05/17/18 10:53 PMH/Surg Hx/FS Hx/Imm Hx Previously Healthy: Yes Endocrine/Hematology History: Denies: Hx Diabetes Cardiovascular History: Denies: Hx Hypertension GI History: Reports: Hx Diverticulosis - diverticulitis with perforation History: Reports: Hx Benign Prostatic Hyperplasia, Hx Kidney Stones, Other Problems/Disorders - enlarged prostate Denies: Hx Renal Disease Sensory History: Reports: Hx Contacts or Glasses Denies: Hx Hearing Aid Opthamlomology History: Reports: Hx Contacts or Glasses - Cancer History Cancer Type, Location and Year: None reported - Surgical History Surgery Procedure, Year, and Place: Vanda's procedure for diverticulitis Hx Anesthesia Reactions: No - Immunization History Hx Pertussis Vaccination: No Immunizations Up to Date: Yes Infectious Disease History: No Infectious Disease History: Denies: Traveled Outside the [place] in Last 30 Days - Family History Known Family History: Positive: Diabetes - father, Other - diverticulitis - father Negative: Cardiac Disease, Hypertension - Social History Occupation: Unemployed Lives: With Family Alcohol Use: None Hx Substance Use: Yes Substance Use Type: Reports: Marijuana Substance Use Comment - Amount & Last Used: 12/19/17 Smoking Status (MU): Former Smoker Review of Systems Constitutional: Negative Negative: Fever, Chills, Fatigue, Skin Diaphoresis Negative: Palpitations, Chest Pain Negative: Shortness Of Breath, Cough Genitourinary: Negative Positive: no symptoms reported, see HPI Positive: Myalgia - right anterior thigh and groin pain with ecchymosis and swelling. Negative: Arthralgia Positive: Bruising, Other - right anterior thigh and groin pain with ecchymosis and swelling Neurological: Negative All Other Systems Reviewed And Are Negative: Yes Physical Exam Triage Information Reviewed: Yes Vital Signs On Initial Exam: Initial Vitals Temp Pulse Resp BP Pulse Ox 99.3 F 105 20 125/95 99 05/17/18 10:52 05/17/18 10:52 05/17/18 10:52 05/17/18 10:52 05/17/18 10:52 Vital Signs Reviewed: Yes Appearance: Positive: Well-Appearing, Well-Nourished Skin: Positive: Warm, Other - right anterior thigh and groin pain with ecchymosis and swelling Eyes: Positive: EOMI, JACQUELINE Respiratory/Lung Sounds: Positive: Breath Sounds Present Cardiovascular: Positive: RRR Musculoskeletal: Positive: Limited @ - limited d/t pain, Pain @ - right anterior thigh and groin pain with ecchymosis and swelling. Negative: Edema Left, Edema Right Neurological: Positive: Speech Normal Psychiatric: Positive: Normal, Affect/Mood Appropriate Diagnostics - Vital Signs Vital Signs Temp Pulse Resp BP Pulse Ox 05/17/18 13:36 99.0 F 93 20 115/86 96 05/17/18 10:52 99.3 F 105 20 125/95 99 - Laboratory Lab Statement: Any lab studies that have been ordered have been reviewed, and results considered in the medical decision making process. Lower Extremity Course/Dx - Course Course Of Treatment: During the course treatment, the patient is evaluated for right anterior thigh and groin pain with ecchymosis. He endorses some swelling to this area as well. Patient remains ambulatory, but with pain. No evidence on physical exam of wood-like feeling, tense feeling, or decrease in sensation of the R anterior thigh or ipsilateral leg. He does have pain with passive stretch of the muscles, no pallor is noted, no diminished sensation, no muscle weakness is noted and no paralysis is seen. He will be discharged with encouragement of ice, ibpurofen, elevation. I have given pain control. - Diagnoses Provider Diagnoses: Hematoma Discharge - Sign-Out/Discharge Documenting (check all that apply): Patient Departure Patient Received Moderate/Deep Sedation with Procedure: No - Discharge Plan Condition: Stable Disposition: HOME Prescriptions: oxyCODONE/Acetamin 10/325(NF) [Percocet 10/325 (NF)] 1 tab PO Q6H #15 tab MDD 4 Patient Education Materials: Hematoma (ED) Referrals: No Primary Care Phys,NOPCP [Primary Care Provider] - Additional Instructions: Commonly, a leg hematoma is treated with: cold compress or ice pack application for 20 to 30 minutes for the 48 hours following injury to reduce swelling followed by Heat to the area rest elevating your foot higher than your heart light compression with a wrapped bandage pain medication such as acetaminophen (Tylenol) or oxycodone Take ibpurofen 600mg three times daily x 4-5 days DESPITE taking the oxy - this will help with blood flow. - Billing Disposition and Condition Condition: STABLE Disposition: Home
== END 2018-05-17 13:38 | disposition home or self-care (01) ==
LOC: ED 10:42
DX: S70.01XA Contusion of right hip, initial encounter (principal); S70.11XA Contusion of right thigh, initial encounter; W19.XXXA Unspecified fall, initial encounter; Y92.9 Unspecified place or not applicable; Z87.891 Personal history of nicotine dependence
CPT/HCPCS: 72192; 99282

== ENCOUNTER 2018-09-16 06:37 | Inpatient (IN) | payer OTHER ==
--- NOTE | 2018-08-29 14:02 | HP ---
CC: Dr. Osito hCavez * ADMISSION HISTORY AND PHYSICAL: DATE OF ADMISSION: 09/16/18. ATTENDING SURGEON: Dr. Hiram Velazquez * (RAFAEL Henriquez dictating). CHIEF COMPLAINT: Colostomy. HISTORY OF PRESENT ILLNESS: This is a 57-year-old male who was admitted on and underwent laparotomy with sigmoid resection and drainage of intraperitoneal abscess for perforated sigmoid diverticulitis on 12/27/17. He was readmitted on 01/14/18 through 01/25/18 for treatment of an intraabdominal abscess that was drained percutaneously by Interventional Radiology. His postoperative course was otherwise unremarkable. He underwent colonoscopy on 12/[address] Velazquez which was his first ever. No abnormalities other than pancolonic diverticulosis. Dr. Velazquez has discussed with him the indications for surgery, the risks, benefits and alternatives and he would like to proceed with laparoscopic reversal of colostomy. PAST MEDICAL HISTORY: Unremarkable for any chronic reactive problems other than per the HPI and history of tobacco use. PAST SURGICAL HISTORY: His only previous surgery was the sigmoid colectomy as noted above with end colostomy. CURRENT MEDICATIONS: None. DRUG ALLERGIES: None. FAMILY HISTORY: Negative for anesthesia problems, bleeding or clotting disorders. SOCIAL HISTORY: The patient lives alone but does have a girlfriend. 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 He is a prior smoker for 45 years, he quit in December 2017. He did resume smoking a pipe approximately 3 times a day earlier this year. He denies use of alcohol or recreational drugs. REVIEW OF SYSTEMS: General: No recent constitutional symptoms or acute illnesses. He did have significant weight loss during the perioperative period last fall, but has since regained that lost weight and some additional. He had an injury to his right anterior thigh in May of this year resulting in a hematoma which has largely resolved and did not require any intervention. PHYSICAL EXAMINATION GENERAL: Well-nourished, well-developed male, in no acute distress. VITAL SIGNS: Height 5 feet 7 inches, weight 166 pounds. Blood pressure 144/84 , pulse 78, respirations 16, temperature 97.8. HEENT: Pupils are equal and round, reactive. EOMs intact. No conjunctival pallor. Oropharynx: Teeth in good repair. No intraoral lesions. NECK: No lymphadenopathy, thyromegaly, or masses. LUNGS: Clear to auscultation. No rales or wheezes. HEART: Regular rate and rhythm. No murmur noted. ABDOMEN: There is a left lower quadrant colostomy with healthy pink mucosa. There is a well-healed lower midline incision. The abdomen is otherwise soft, nontender without palpable masses or organomegaly. No palpable inguinal hernias. GENITALIA: Otherwise not examined. RECTAL: Not done. BACK: No spinous process or CVA tenderness. EXTREMITIES: No edema. NEUROLOGICAL: Grossly intact. SKIN: Warm and dry. No suspicious rashes or lesions noted, though full skin survey was not performed. IMPRESSION: Colostomy (secondary to perforated diverticulitis). PLAN: Laparoscopic reversal of colostomy. RAFAEL HENRIQUEZ [id number]/ROSITA #: [id number] MTDDavey
[~2018-09-16 06:37] MED LIST: Buffered Lidocaine 1% SYRIN* 1 ML/SYRINGE INTRADERM ONE; ERTApenem(*) 1 GM in NS 0.9% 50 ML* 50 ML IVPB SCH; Famotidine IV* 10 MG/ML 2 ML (20 mg) IV ONE; Lactated Ringers 1000 ML Bag* 1,000 ML IV SCH
--- OUTSIDE RECORDS SUMMARY | 2018-09-16 06:40 | XMS REPORT | Continuity of Care Document ---
:1960 External Reference #:[id number] Author Name Kandy Gould Care Team Providers Name Role Phone Osito Chavez MD Primary Care Physician Unavailable Payers Date Identification Numbers Payment Provider Subscriber Effective: 2018 Policy Number: [id number] [place] Avtar Brock JR PayID: [id number] [address] [place] [address] Expires: 2018 Policy Number: [id number] Medicaid Avtar Brock JR Group Name: 1 1 [address] PayID: [id number] [place] [address] Effective: 2015 Policy Number: [facility] Insurance Fund Avtar Brock [id number] JR Onset: 2015 Group Number: [id number] [address] [address] PayID: [id number] [address] Family History Date Family Member(s) Observation Comments General Cancer General Diabetes Social History Type Date Description Comments Sex Unknown Marital Status Single Lives With Alone Occupation [employer] Use Denies alcohol use Tobacco Use Start: Unknown Patient is a current smokes pipe now smoker, smokes every day Recreational Drug Use Denies Drug Use Tobacco Use Start: Unknown End: Patient is a former stopped 12/26/17 Unknown smoker heavy tobacco smoker Smoking Status Reviewed: 08/29/18 Patient is a former stopped 12/26/17 smoker heavy tobacco smoker Exercise Type/Frequency Exercises regularly Allergies, Adverse Reactions, Alerts Description No Known Drug Allergies Medications Active Medications SIG Qnty Indications Ordering Provider Date No Active Medications Unknown 06/09/2018 History Medications No Active Medications Unknown 03/10/2018 - 05/26/2018 Amoxicillin/Clavulanate take one tablet 20tabs Hiram S. 02/08/2018 - Potassium by mouth twice a MD Marcus Unknown 875-125mg Tablets day Sulfamethoxazole/Trimetho one by mouth 28tabs Hiram S. 02/08/2018 - prim DS twice a day MD Marcus Unknown 800-160mg Tablets Neurontin 1 by mouth every 30caps Chong Mcallister, 12/19/2015 - 300mg Capsules night at bedtime M.D. 01/22/2016 Ibuprofen by mouth three Unknown - 800mg Tablets times a day as 02/14/2018 needed Cyclobenzaprine HCL 1 tablet by Unknown - 5mg Tablets mouth three 01/22/2016 times a day as needed Oxycodone-Acetaminophen 1-2 tab by mouth Unknown - every q4-6hrs as 05/16/2018 10-325mg Tablets needed Vital Signs Date Vital Result Comment 08/29/2018 11:02am Height 67 inches 5'7" Weight 166.00 lb Heart Rate 78 /min BP Systolic Sitting 144 mmHg BP Diastolic Sitting 84 mmHg Respiratory Rate 16 /min Body Temperature 97.8 F BMI (Body Mass Index) 26.0 kg/m2 08/04/2018 1:33pm Height 67 inches 5'7" Weight 166.38 lb Heart Rate 87 /min BP Systolic Sitting 124 mmHg BP Diastolic Sitting 78 mmHg Respiratory Rate 18 /min Body Temperature 97.4 F O2 % BldC Oximetry 98 % BMI (Body Mass Index) 26.1 kg/m2 07/07/2018 1:54pm Height 67 inches 5'7" Weight 165.25 lb Heart Rate 86 /min BP Systolic Sitting 138 mmHg right upper arm BP Diastolic Sitting 72 mmHg right upper arm Respiratory Rate 20 /min Body Temperature 98.0 F Pain Level 0 O2 % BldC Oximetry 98 % BMI (Body Mass Index) 25.9 kg/m2 06/09/2018 1:21pm Height 67 inches 5'7" Weight 163.00 lb Heart Rate 72 /min BP Systolic Recheck 126 mmHg BP Diastolic Recheck 84 mmHg Respiratory Rate 16 /min Body Temperature 98.0 F BMI (Body Mass Index) 25.5 kg/m2 05/26/2018 1:10pm Height 67 inches 5'7" Weight 159.00 lb Heart Rate 72 /min BP Systolic Recheck 126 mmHg BP Diastolic Recheck 84 mmHg Respiratory Rate 16 /min Body Temperature 97.9 F BMI (Body Mass Index) 24.9 kg/m2 04/14/2018 1:25pm Height 67 inches 5'7" Weight 159.00 lb Heart Rate 76 /min BP Systolic Recheck 126 mmHg BP Diastolic Recheck 82 mmHg Respiratory Rate 16 /min Body Temperature 98.1 F BMI (Body Mass Index) 24.9 kg/m2 03/10/2018 1:08pm Height 67 inches 5'7" Weight 154.00 lb Heart Rate 76 /min BP Systolic Recheck 130 mmHg BP Diastolic Recheck 84 mmHg Respiratory Rate 16 /min Body Temperature 98.4 F BMI (Body Mass Index) 24.1 kg/m2 02/10/2018 1:15pm Height 67 inches 5'7" Weight [...] Result H/L Range Note Laboratory test 12/26/2017 [facility] Surgical SEE RESULT [address] [place] [address] [phone] Wound 12/26/2017 [facility] Wound/Misc SEE RESULT 2, 3 Culture/Sensi [address] [place] [address] Stain [phone] Laboratory test 12/26/2017 [facility] MRSA/S. aureus SEE RESULT [address] [address] [phone] Anaerobic Culture SEE RESULT BELOW 5 1 SEE RESULT BELOW Name: AVTAR BROCK : [address]: Hiram Velazquez MD Acct: [id number] Unit: [id number] AGE: 57 Location: [place] [address] Re12/27/17 SEX: M Status: ADM IN SPEC: [id number] HAKAN: 12/26/17- [facility] DR: Hiram Velazquez MD REQ: [id number] RECD: 12/26/17 STATUS: SOUT _ ORDERED: LEVEL [...] mucosa is glistening camp-pink with normal folds. Antique Dealer sections are submitted in cassettes A through F as follows: A-margins, B-diverticulum, C and D-inked perforation and E and F-abscess Signed by and Reported on: Maury Milan MD 1047 END OF REPORT DEPARTMENT OF PATHOLOGY, [address] [place] [address] Maury Milan M.D. Director [facility] # [id number] 2 PERITONWAL ABCESS 3 SEE RESULT BELOW Name: AVTAR BROCK : [address]: Hiram Velazquez MD Acct: [id number] Unit: [id number] AGE: 57 Location: [place] Re12/26/17 SEX: M Status: REG [facility] SPEC: [id number] HAKAN: 12/26/17 DR: Hiram Velazquez MD REQ: [id number] RECD: 12/26/17 STATUS: RES OT DR: Staci Primary Care Phys,NOPCP _ SOURCE: WOUND SPDESC:PERITONEAL ORDERED: Anaerobic Cult, Culture Stain COMMENTS: PERITONWAL ABCESS QUERIES: Specimen Description ABCESS Procedure Result Reported Site Anaerobic Culture PENDING Wound/Misc Gram Stain Preliminary 12/26/172308 ML 4+ Neutrophils 1+ Epithelial Cells 2+ Gram Positive Cocci 2+ Gram Negative Bacilli Wound/Misc Culture PENDING * ML - Main Lab . END OF REPORT DEPARTMENT OF PATHOLOGY, [address] [place] [address] Maury Milan M.D. Director [facility] # [id number] 4 SEE RESULT BELOW Name: AVTAR BROCK : [address]: Hiram Velazquez MD Acct: [id number] Unit: [id number] AGE: 57 Location: [facility] 338-01 Re12/27/17 SEX: M Status: ADM David SPEC: [id number] HAKAN: 12/26/17 [facility] DR: Hiram Velazquez MD REQ: [id number] RECD: 12/26/17 STATUS: RES OT DR: Staci Primary Care Phys,NOP _ SOURCE: WOUND SPDESC:PERITONEAL ORDERED: Anaerobic Cult, [...] . END OF REPORT DEPARTMENT OF PATHOLOGY, [address] [place] [address] Maury Milan M.D. Director [facility] # [id number] 5 SEE RESULT BELOW Name: AVTAR BROCK : [address]: Hiram Velazquez MD Acct: [id number] Unit: [id number] AGE: 57 Location: [facility] 338-01 Re12/27/17 SEX: M Status: ADM IN SPEC: [id number] HAKAN: 12/26/17 DR: Hiram Velazquez MD REQ: [id number] RECD: 12/26/17 STATUS: CONNOR HERNANDEZ DR: No Primary Care Phys,NOPCP _ SOURCE: WOUND SPDESC:PERITONEAL [...] CONTINUED ON NEXT PAGE DEPARTMENT OF PATHOLOGY, [address] [place] [address] Maury Milan M.D. Director [facility] # [id number] Patient: AVTAR BROCK Janna [id number] (Continued) Specimen: [id number] Collected: 12/26/17 Received: 12/26/17 (Continued) Procedure Result [...] . END OF REPORT DEPARTMENT OF PATHOLOGY, [address] [place] [address] Maury Milan M.D. Director [facility] # [id number] Procedures Date Code Description Status 07/21/2018 72817 Sigmoidoscopy Diagnostic Completed 07/21/2018 28996 Colonoscopy Thru Stoma Diagnostic Completed 07/21/2018 64165493 Colonoscopy Completed 12/26/2017 68887 Colectomy Partial W/End Colostomy & Close Distal Completed Segment 12/26/2017 41343 Colectomy Partial W/End Colostomy & Close Distal Completed Segment Encounters Type Date Location Provider Dx Diagnosis Office Visit 08/04/2018 Kanchan Li K57.20 Dvtrcli of lg int 1:30p [facility] MD w perforation and AT [place] abscess w/o bleeding Office Visit 07/07/2018 Surgical Hiram Li K57.20 Dvtrcli of lg int 1:30p [facility] MD w perforation and AT [place] abscess w/o bleeding Office Visit 06/09/2018 Surgical Hiram Li S80.11xD Contusion of right 1:15p [facility] MD lower leg, AT [place] subsequent encounter Office Visit 05/26/2018 Kanchan Li K57.20 Dvtrcli of lg int 1:15p [facility] MD w perforation and AT [place] abscess w/o bleeding S80.11xA Contusion of right lower leg, initial encounter Office Visit 04/14/2018 Kanchan Li K57.20 Dvtrcli of lg 1:30p [facility] Marcus int w Remelt Operator AT [place] perforation and abscess w/o bleeding Office Visit 01/20/2018 [facility] T81.43xA Infct fol a 7:17a For Infectious Nick Dallas procedure, organ Diseases and space surgical site, init R05 Cough Office Visit 01/03/2018 [facility] Z48.815 Encntr for 9:47a shanon Gabriel, [employer] surgical aftcr Hospitalists following surgery on the dgstv sys D72.829 Elevated white blood cell count, unspecified K56.7 Ileus, unspecified J98.11 Atelectasis Office Visit 01/02/2018 [facility] Z48.815 Encntr for 9:46a shanon Gabriel, [employer] surgical aftcr Hospitalists following surgery on the dgstv sys D72.829 Elevated white blood cell count, unspecified K56.7 Ileus, unspecified J98.11 Atelectasis Office Visit 01/01/2018 [facility] Z48.815 Encntr for 9:46a shanon Gabriel PA surgical aftcr Hospitalists following surgery on the dgstv sys K56.7 Ileus, unspecified D72.829 Elevated white blood cell count, unspecified J98.11 Atelectasis E87.6 Hypokalemia Office Visit 12/26/2017 Surgical Hiram Li K57.20 Dvtrcli of lg int 7:00a [facility] MD Marcus w perforation and Remelt Operator abscess w/o bleeding K57.20 Dvtrcli of lg int w perforation and abscess w/o bleeding Office Visit 01/23/2016 9:00a Orthopedic Chong Mcallister M62.830 Muscle spasm Services Of Remelt Operator AT M.D. of back Pradeep M62.830 Muscle spasm of back Office Visit 12/19/2015 8:30a Orthopedic Chong Mcallister M62.830 Muscle spasm Services Of Remelt Operator AT M.D. of back [place] M62.830 Muscle spasm of back S29.012A Strain of muscle and tendon of back wall of thorax, init S29.012A Strain of muscle and tendon of back wall of thorax, init Plan of Treatment Future Appointment(s):09/16/2018 7:30 am - Truong Delarosa MD, FACS at [facility]09/16/2018 7:30 am - Hiram Velazquez MD at [facility]
[2018-09-16] MEDS ORDERED: Famotidine IV* 10 MG/ML 2 ML (20 mg) ONE (06:47)
[2018-09-16] MEDS ORDERED: Buffered Lidocaine 1% SYRIN* 1 ML/SYRINGE INTRADERM ONE (06:47)
[2018-09-16] MEDS ORDERED: Heparin VIAL(*) 5000 UNITS/ML VIAL (FIVE THOUSAND) ONE (06:47)
[2018-09-16] MEDS ORDERED: Bupivacaine 0.25% EPI 200,000* 30 ML SDV ONE (07:48)
[2018-09-16] MEDS ORDERED: fentaNYL* 50 MCG/ML 2 ML VIAL (100 MCG VIAL) ONE ×3 (08:30→10:27)
[2018-09-16] MEDS ORDERED: Midazolam* 1 MG/ML 5 ML VIAL (5 MG) ONE (08:30)
[2018-09-16] MEDS ORDERED: Rocuronium* 10 MG/ML VIAL ONE ×3 (08:32→11:45)
[2018-09-16] MEDS ORDERED: Ondansetron INJ* 2 MG/ML VIAL ONE (09:07)
[2018-09-16] MEDS ORDERED: Succinylcholine* 20 MG/ML 10 ML VIAL ONE (09:07)
[2018-09-16] MEDS ORDERED: Propofol* 10 MG/ML 20 ML BTL ONE ×2 (09:07→14:25)
[2018-09-16] MEDS ORDERED: Ketorolac INJ* 30 MG/ML 1 ML VIAL ONE (09:07)
[2018-09-16] MEDS ORDERED: DiMENhydriNATE IV* 50 MG/ML VIAL ONE (09:07)
[2018-09-16] MEDS ORDERED: Dexamethasone IV* 4 MG/ML 1 ML (4 MG) ONE (09:07)
[2018-09-16] MEDS ORDERED: Lidocaine 2% PF * 5 ML VIAL ONE (09:08)
[2018-09-16] MEDS ORDERED: HYDROmorphone INJ1* 1 MG/ML SYRINGE IV PRN (09:15)
[2018-09-16] MEDS ORDERED: DiMENhydriNATE IV* 50 MG/ML VIAL IV PUSH PRN (09:15)
[2018-09-16] MEDS ORDERED: Naloxone* 0.4 MG/ML 1 ML VIAL IV PRN (09:15)
[2018-09-16] MEDS ORDERED: Acetaminophen IV 1GM/100ML * 1,000 MG/100 ML VIAL IVPB ONE (09:15)
[2018-09-16] MEDS ORDERED: HYDROmorphone INJ1* 1 MG/ML SYRINGE ONE ×2 (11:36→13:50)
--- NOTE | 2018-09-16 13:47 | OP ---
Operative Report - Blank - Operative Report Date of Operation: 09/16/18 Note: Brief Operative Note Preop Dx: Colostomy Postop Dx: same Procedure: Laparoscopy; laparotomy; reversal of colostomy Anesthesia: CINDI Surgeon: Marcus Data Migration Lead: RAFAEL Driver; DIMA Monzon Fluids: 5 L RL EBL: 200 ml Specimen: portions of sigmoid and descending colon Drains: none Findings: dictated
[2018-09-16] MEDS ORDERED: Acetaminophen TAB* 325 MG PO PRN (13:55)
[2018-09-16] MEDS ORDERED: Naloxone* 0.4 MG/ML 1 ML VIAL IV PUSH PRN (13:56)
[2018-09-16] MEDS ORDERED: Ondansetron INJ* 2 MG/ML VIAL IV PRN (13:57)
[2018-09-16] MEDS ORDERED: Neostigmine Methylsulfate* 1 MG/ML 10 ML VIAL (1 mg/ml) ONE (14:05)
[2018-09-16] MEDS ORDERED: Glycopyrrolate IV* 0.2 MG/ML 1 ML VIAL ONE (14:05)
[2018-09-16] MEDS ORDERED: Acetaminophen IV 1GM/100ML * 100 ML ONE (15:06)
[2018-09-16] MEDS: HYDROmorphone PCA* 20 MG/20 ML PCA.SYRING PCA SCH (16:30)
[2018-09-16] MEDS: Lactated Ringers 1000 ML Bag* 1,000 ML IV SCH (16:37)
--- NOTE | 2018-09-16 18:38 | OP ---
CC: Dr. Mayito Dickey, [facility] * DATE OF OPERATION: 09/16/18 - ROOM #332 DATE OF : 60 SURGEON: Hiram Velazquez MD. ASSISTANTS: Truong Delarosa MD, and RAFAEL Henriquez. ANESTHESIOLOGIST: Dr. Thomson. ANESTHESIA: General with local. PRE-OP DIAGNOSES: 1. Existing end sigmoid colostomy. 2. Sigmoid diverticular disease. POST-OP DIAGNOSES: Existing end sigmoid colostomy. OPERATIVE PROCEDURE: Laparoscopy with exploratory laparotomy and colostomy reversal with descending colon to proximal rectum colocolostomy using a #28 EEA stapler. ESTIMATED BLOOD LOSS: 200 mL. IV FLUIDS: 5 L crystalloid. SPECIMENS: Portions of distal descending colon and distal sigmoid colon, sent separately. WOUND CLASSIFICATION: IV. COMPLICATIONS: None. DRAINS: None. INDICATIONS: The patient is a 57-year-old gentleman who had presented last December with peritonitis and sepsis requiring emergent exploratory laparotomy. He was found to have a large perforated sigmoid diverticulum necessitating resection with end colostomy. He has recovered well and underwent a colonoscopy in July of this year which showed pancolonic diverticular disease, but no other abnormalities. He is now to undergo an elective colostomy reversal. The risks, benefits and alternatives were discussed and documented in the preoperatively transcribed office note. DESCRIPTION OF PROCEDURE: Written and informed consent was obtained, the abdomen was marked with indelible ink, and preoperative antibiotics were administered. The patient was taken to the operating room and placed in the supine position. Sequential compression device and warming blanket were applied. General anesthesia was administered. A Irby catheter was inserted. The abdomen and perineum were prepped and draped in the usual sterile fashion. Time-out verification was completed. Initially, a small vertical incision was made above the umbilicus and the peritoneal cavity was entered under direct vision. A 12 mm blunt port was inserted and the abdomen was insufflated to 15 mmHg. Two 5 mm ports were placed in the right upper and right lower abdominal wall, and using a combination of sharp dissection along with the endoscopic LigaSure, the midline adhesions to the anterior abdominal wall were taken down to expose the colostomy in the left lower quadrant of the abdomen. In addition, further dissection proceeded down into the pelvis, where there was omentum and some small- bowel which was adherent to the anterior abdominal wall. These adhesions were lysed as well with the laparoscope. This took approximately one hour. A third 5 mm port was placed in the upper mid abdomen, just to the left of the falciform ligament. We proceeded to mobilize the mid and proximal descending colon up to the splenic flexure in anticipation of planned anastomosis. At this point, it became more difficult to visualize the splenic flexure and I felt that I was unable to proceed expeditiously with the laparoscope, and the previous midline incision was then opened from just above the umbilicus down to the pubis through the previous scar, and the peritoneum was entered under direct vision. There were small-bowel adhesions down in the pelvis which were lysed and the small-bowel was delivered up into the right upper quadrant. At this point, I was able to identify the defunctionalized mid and distal sigmoid colon leading down to the rectum. The patient had developed an abscess along the left paracolic gutter extending down and into the pelvis on his hospital visit requiring percutaneous drainage. The proximal and mid sigmoid colon as it entered the anterior abdominal wall of the colostomy was quite adherent to the lateral abdominal wall. Likewise, there were several loops of small-bowel which were quite adherent in this area from the previous inflammation and most likely where the drain had exited the abdominal wall. These were extremely dense adhesions and these were taken down using a combination of sharp dissection as well as blunt dissection. There were several serosal tears in the small intestine which I closed with several interrupted 3-0 silk sutures, but no transmural enterotomies were identified. Once this was complete, I proceeded to take down the colostomy initially from the skin level first as we carried this down through the skin, subcutaneous tissue towards the abdominal musculature, and the colostomy was completely freed up. There was a small parastomal hernia with some peritoneal sac which was excised. At this point, it was felt that there was still some remaining diverticular disease in the defunctionalized distal sigmoid colon and the mesentery. This was divided distally with the LigaSure device down to the junction between the sigmoid colon and the rectum, and this was divided with a 60 x 4.8 mm TA stapler. Also at this point, the left ureter was identified in the retroperitoneum and appeared to be free of any injury and was well away from the area of dissection , especially that which was done along the lateral paracolic gutter area. Also noted was an area where the sigmoid colon proximal to the colostomy had been adherent to the area of inflammation approximately 4 to 5 cm proximal to the end colostomy. This area was quite macerated from the dissection and although there was noted to be no transmural injury to the colon, I felt that this required removal. Thus, this was divided proximal to the dissection area with a TA 60 stapler and removed, and the mesentery taken with the handheld LigaSure. The splenic flexure was then completely mobilized in anticipation of the anastomosis. Once this was complete, it was felt that the anastomosis would be under acceptable tension. The distal colon was then opened sharply and a handsewn 2-0 Prolene purse-string was placed. A 28 mm EEA anvil was then placed and the suture was tied. Through the anus, the appropriate dilators were then passed and subsequently, the #28 EEA stapler was passed up into the rectal stump. The anastomosis was then created with the usual stapling device. Two complete donuts were noted on the anvil after firing the stapler. The pelvis was filled with saline and the more proximal bowel was clamped. Air was insufflated through the rectum, and the colon and rectum distended nicely without evidence of air leak. The entire abdomen was then irrigated thoroughly with saline. Hemostasis was assured. The ostomy site was closed in layers in the left lower abdominal wall with #1 Vicryl suture. The midline fascia was closed with interrupted #1 Vicryl suture. The wounds were packed lightly with a moist Kerlix gauze and stapled loosely closed. Dry sterile dressings were applied. The patient tolerated the procedure well and was taken to the recovery room in stable condition. [id number]/[facility] #: [id number] MANUEL
[2018-09-16 19:36] LABS: Urine Appearance Cloudy; Urine Bacteria Absent (Absent); Urine Bilirubin Negative (Negative); Urine Blood 3+ (Negative); Urine Color Yellow; Urine Glucose Negative (Negative); Urine Ketones Negative (Negative); Urine Nitrite Negative (Negative); Urine Protein 1+(30 mg/dL) (Negative); Urine Red Blood Cell 3+(>10/hpf) (Absent); Urine Specific Gravity 1.025 (1.010-1.030); Urine Squamous Epithelial Cell Present (Absent); Urine Urobilinogen Negative (Negative); Urine White Blood Cell Trace(0-5/hpf) (Absent)
[2018-09-17 05:20] LABS: Hematocrit 40 % (42-52); Hemoglobin 13.5 g/dL (14.0-18.0); Mean Corpuscular HGB Conc 34 g/dL (31-36); Mean Corpuscular Hemoglobin 31 pg (27-31); Mean Corpuscular Volume 90 fL (80-94); Mean Platelet Volume 7.1 fL (7.4-10.4); Platelet Count 369 10^3/uL (150-450); Red Blood Count 4.42 10^6 /uL (4.18-5.48); Red Cell Distribution Width 14 % (10-15); White Blood Count 14.5 10^3/uL (3.5-10.8)
[2018-09-17 05:25] LABS: ABS Lymphocytes 1.9 10^3/ul (1.0-4.8); ABS Monocytes 2.1 10^3/ul (0-0.8); ABS Neutrophils 10.5 10^3/ul (1.5-7.7); Eosinophil % 0.1 %; Lymphocyte % 13.1 %
[2018-09-17 05:34] LABS: BUN/Creatinine Ratio 20.8 (8-20); EGFR African American 97.7 (>60); EGFR Non-African American 80.7 (>60); Potassium 4.2 mmol/L (3.5-5.0)
[2018-09-17] MEDS: Lactated Ringers 1000 ML Bag* 1,000 ML IV SCH (05:41)
[2018-09-17] MEDS: Heparin VIAL(*) 5000 UNITS/ML VIAL (FIVE THOUSAND) SUBCUT SCH ×3 (05:41→21:35)
[2018-09-17] MEDS: Ketorolac INJ* 30 MG/ML 1 ML VIAL IV PUSH PRN (10:22)
--- NOTE | 2018-09-17 12:20 | PN ---
Progress Note - Progress Note Date of Service: 09/17/18 SOAP: Subjective: Reports good pain control with [employer]. Pain when hiccups. Has no N/V. Has h/o poor urinary stream and nocturia x 3-5 but never treated for BPH. Objective: Vital Signs Temp 98.6 F 09/17/18 11:34 Pulse 84 09/17/18 11:34 Resp 18 09/17/18 11:34 BP 128/55 09/17/18 11:34 Pulse Ox 95 09/17/18 11:34 Gen: NAD Lungs: CTA B; Heart: reg Abd: dressings d/c/i; mildly distended; tender Intake & Output 09/16/18 09/17/18 09/17/18 18:59 06:59 18:59 Intake Total 6900 1474 Output Total 600 825 Balance 6300 649 Weight 163 lb 3.2 oz Intake: IV Fluids 6900 994 LR 6900 994 Oral 480 Output: [place] 400 825 Estimated Blood Loss 200 Laboratory Results - last 24 hr 09/16/18 09/17/18 09/17/18 17:58 04:57 04:57 WBC 14.5 H RBC 4.42 Hgb 13.5 L Hct 40 L MCV 90 MCH 31 MCHC 34 RDW 14 Plt Count 369 MPV 7.1 L Neut % (Auto) 72.1 Lymph % (Auto) 13.1 [place] % (Auto) 14.6 Eos % (Auto) 0.1 Baso % (Auto) 0.1 Absolute Neuts (auto) 10.5 H Absolute Lymphs (auto) 1.9 Absolute Monos (auto) 2.1 H Absolute Eos (auto) 0.0 Absolute Basos (auto) 0.0 Absolute Nucleated RBC 0.0 Nucleated RBC % 0.0 Sodium 138 Potassium 4.2 Chloride 107 Carbon Dioxide 26 Anion Gap 5 BUN 20 Creatinine 0.96 Est GFR ( Amer) 97.7 Est GFR (Non-Af Amer) 80.7 BUN/Creatinine Ratio 20.8 H Glucose 121 H Calcium 8.0 L Urine Color Yellow Urine Appearance Cloudy Urine pH 5.0 Ur Specific [place] 1.025 Urine Protein 1+(30 mg/dl) A Urine Ketones Negative Urine Blood 3+ A Urine Nitrate Negative Urine Bilirubin Negative Urine Urobilinogen Negative Ur Leukocyte Esterase Trace A Urine WBC (Auto) Trace(0-5/hpf) Urine RBC (Auto) 3+(>10/hpf) A Ur Squamous Epith Cells Present A Urine Bacteria Absent Urine Glucose Negative Assessment: POD#1 s/p reversal of colostomy. Likely BPH given hx. Plan: Await GI fxn. Clears. Ambulate. Keep palma until tomorrow; given BPH sx will start Flomax. Pulm toilet.
[2018-09-17] MEDS: HYDROmorphone PCA* 20 MG/20 ML PCA.SYRING PCA SCH (19:58)
[2018-09-17] MEDS: Tamsulosin CAP* 0.4 MG PO SCH (21:35)
[2018-09-18] MEDS: Heparin VIAL(*) 5000 UNITS/ML VIAL (FIVE THOUSAND) SUBCUT SCH ×3 (06:00→21:04)
[2018-09-18] MEDS: Ketorolac INJ* 30 MG/ML 1 ML VIAL IV PUSH PRN ×2 (06:28→14:47)
[2018-09-18] MEDS: Lactated Ringers 1000 ML Bag* 1,000 ML IV SCH ×2 (07:21→21:04)
--- NOTE | 2018-09-18 08:37 | PN ---
Progress Note - Progress Note Date of Service: 09/18/18 SOAP: Subjective: No flatus. Tolerating clears, no N/V. Pain controlled. Wants palma out. Objective: Vital Signs Temp 98.7 F 09/18/18 07:25 Pulse 77 09/18/18 07:25 Resp 18 09/18/18 07:25 BP 121/58 09/18/18 07:25 Pulse Ox 96 09/18/18 07:25 Gen: NAD Abd: incisions clean; packing removed and bleeding noted; repacked with NS W=>D Kerlix; scant BS. Intake & Output 09/17/18 09/18/18 09/18/18 18:59 06:59 18:59 Intake Total 50 499 99.9 Output Total 250 1275 Balance -200 -776 99.9 Intake: IV Fluids 99.9 LR 99.9 Oral 50 499 Output: Urine 250 Palma 1275 Assessment: POD#2 s/p reversal colostomy. Doing well. Plan: Cont diet. D/c palma. Await flatus.
[2018-09-18] MEDS: Tamsulosin CAP* 0.4 MG PO SCH (21:04)
[2018-09-19] MEDS: Ketorolac INJ* 30 MG/ML 1 ML VIAL IV PUSH PRN ×2 (03:32→13:32)
[2018-09-19] MEDS: Heparin VIAL(*) 5000 UNITS/ML VIAL (FIVE THOUSAND) SUBCUT SCH ×3 (05:55→21:56)
--- NOTE | 2018-09-19 08:55 | PN ---
Progress Note - Progress Note Date of Service: 09/19/18 Note: S: 57 y/o male s/p colostomy reversal on 16SEP2018. Patient has been ambulating regularly with some abdominal discomfort. Is receiving Ketorolac 30 mg IV q6 hours PRN for pain. Pain with Ketorolac is 2/10, pain without is 5/10. Irby D/ C yesterday. Patient states he is urinating without burning, pain, or difficulty. Tolerating clear liquids well. Patient denies flatus. One episode of vomiting this morning. Denies chest pain, SOB, fever, chills. 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 .change Q24H [facility]; Protocol Last Admin: 09/17/18 19:58 Dose: 1 mls/hr Lactated Ringer's (Lactated Ringers 1000 Ml Bag*) 1,000 mls @ 75 mls/hr IV PER RATE [facility] Last Admin: 09/18/18 21:04 Dose: 75 mls/hr Ketorolac Tromethamine (Toradol Inj*) 30 mg IV PUSH Q6H PRN PRN Reason: PAIN Last Admin: 09/19/18 03:32 Dose: 30 mg Naloxone HCl (Narcan*) 0.08 mg IV PUSH .Q2MIN PRN PRN Reason: OVERSEDATION Ondansetron HCl (Zofran Inj*) 4 mg IV Q6H PRN PRN Reason: NAUSEA Tamsulosin HCl (Flomax Cap*) 0.4 mg PO BEDTIME [facility] Last Admin: 09/18/18 21:04 Dose: 0.4 mg O: general, surgical site Vital Signs Temp 98.8 F 09/19/18 07:20 Pulse 84 09/19/18 07:20 Resp 18 09/19/18 07:20 BP 150/92 09/19/18 07:20 Pulse Ox 96 09/19/18 07:20 Intake & Output 09/18/18 09/19/1809/19/19 18:59 06:59 18:59 Intake Total 299.9 1860 Output Total 750 1000 100 Balance -450.1 860 -100 Intake: IV Fluids 99.9 1020 LR 99.9 1020 Oral 200 840 Output: Urine 225 1000 100 [place] 525 Other: Estimated Void Large # Bowel Movements 0 # Voids 1 General: patient is lying supine on bed in no acute distress, non-toxic appearing, A&O x 3. Cardio: Regular rate and rhythm. S1 and S2 auscultated without S3 or S4. No murmurs, rubs, or gallops. Respiratory: Lungs clear to auscultation throughout bilaterally. Abdomen and surgical site: incisions are clean, no erythema or purulent drainage noted. Packing still in place with some bleeding noted on packing. Scant bowel sounds. A: POD #3 s/o colostomy reversal, and is doing well. P: Continue diet and wait for flatus to occur. Continue ambulating regularly.
--- NOTE | 2018-09-19 09:49 | PN ---
Progress Note - Progress Note Date of Service: 09/19/18 SOAP: Subjective: Vomited some of his clear liquids after ambulating in halls Pain is adequately controlled No flatus, he feels some "gurgling" in abdomen Objective: Temp Pulse Resp BP Pulse Ox 98.8 F 84 16 150/92 96 09/19/18 07:20 09/19/18 07:20 09/19/18 09:00 09/19/18 07:20 09/19/18 09:00 Intake & Output 09/17/18 09/18/18 09/19/18 09/20/18 06:59 06:59 06:59 06:59 Intake Total 8374 549 2159.9 Output Total 1425 1525 1750 100 Balance 6949 -976 409.9 -100 Weight 163 lb 3.2 oz Intake: IV Fluids 7894 1119.9 LR 7894 1119.9 Oral 005 512 3885 Output: Urine 250 1225 100 [place] 1225 1275 525 Estimated Blood Loss 200 Other: Estimated Void Large # Bowel Movements 0 # Voids 1 PEX: Comfortable Lungs are clear, decreased breath sounds at bases Cor is RRR Abd is slightly distended-tympanitic throughout, bowel sounds are present, some higher pitched. Midline incision and ostomy site clean and pink, packing and dressing changed. 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
[2018-09-19] MEDS: Famotidine IV* 10 MG/ML 2 ML (20 mg) IV SLOW PU SCH ×2 (10:30→21:56)
[2018-09-19] MEDS: Lactated Ringers 1000 ML Bag* 1,000 ML IV SCH ×2 (10:30→23:27)
[2018-09-19] MEDS: Tamsulosin CAP* 0.4 MG PO SCH (21:56)
[2018-09-19] MEDS: HYDROmorphone PCA* 20 MG/20 ML PCA.SYRING PCA SCH (22:51)
[2018-09-20] MEDS: Ketorolac INJ* 30 MG/ML 1 ML VIAL IV PUSH PRN ×2 (01:48→20:35)
[2018-09-20 05:13] LABS: ABS Eosinophils 0.2 10^3/ul (0-0.6); ABS Lymphocytes 1.3 10^3/ul (1.0-4.8); ABS Neutrophils 7.4 10^3/ul (1.5-7.7); Eosinophil % 1.8 %; Hematocrit 35 % (42-52); Lymphocyte % 13.6 %; Mean Corpuscular HGB Conc 35 g/dL (31-36); Mean Corpuscular Hemoglobin 31 pg (27-31); Mean Corpuscular Volume 89 fL (80-94); Mean Platelet Volume 7.5 fL (7.4-10.4); Platelet Count 375 10^3/uL (150-450); Red Blood Count 3.89 10^6 /uL (4.18-5.48); Red Cell Distribution Width 14 % (10-15); White Blood Count 9.9 10^3/uL (3.5-10.8)
[2018-09-20 05:31] LABS: BUN/Creatinine Ratio 22.6 (8-20); EGFR African American 161.8 (>60); EGFR Non-African American 133.7 (>60); Potassium 3.3 mmol/L (3.5-5.0)
[2018-09-20] MEDS: Heparin VIAL(*) 5000 UNITS/ML VIAL (FIVE THOUSAND) SUBCUT SCH ×3 (05:42→22:16)
--- NOTE | 2018-09-20 08:26 | PN ---
Progress Note - Progress Note Date of Service: 09/20/18 SOAP: Subjective: Passed flatus overnight No further N/V, tolerating some leatha nia Pain adequately controlled Objective: Temp Pulse Resp BP Pulse Ox 98 F 63 18 148/71 97 09/20/18 07:24 09/20/18 07:24 09/20/18 07:24 09/20/18 07:24 09/20/18 07:24 Intake & Output 09/18/18 09/19/18 09/20/18 09/21/18 06:59 06:59 06:59 06:59 Intake Total 549 2159.9 2201 Output Total 1525 1750 900 Balance -976 409.9 1301 Intake: IV Fluids 1119.9 1961 LR 1119.9 1961 Oral 549 1040 240 Output: Urine 250 1225 900 [place] 1275 525 Other: Estimated Void Large Medium # Bowel Movements 0 0 # Voids 1 6 PEX: Comfortable Lungs are clear Abd is soft and slightly distended. Incision and ostomy site clean and pink, packing changed. Few bowel sounds present Laboratory Results - last 24 hr 09/20/18 09/20/18 04:44 04:44 WBC 9.9 RBC 3.89 L Hgb 12.0 L Hct 35 L MCV 89 MCH 31 MCHC 35 RDW 14 Plt Count 375 MPV 7.5 Neut % (Auto) 74.8 Lymph % (Auto) 13.6 [place] % (Auto) 9.6 Eos % (Auto) 1.8 Baso % (Auto) 0.2 Absolute Neuts (auto) 7.4 Absolute Lymphs (auto) 1.3 Absolute Monos (auto) 1.0 H Absolute Eos (auto) 0.2 Absolute Basos (auto) 0.0 Absolute Nucleated RBC 0.0 Nucleated RBC % 0.0 Sodium 136 Potassium 3.3 L Chloride 105 Carbon Dioxide 22 Anion Gap 9 BUN 14 Creatinine 0.62 L Est GFR ( Amer) 161.8 Est GFR (Non-Af Amer) 133.7 BUN/Creatinine Ratio 22.6 H Glucose 119 H Calcium 8.0 L Assessment: POD# 4 s/p colostomy reversal Post-op ileus-improved Hypokalemia Plan: Sips of clears-advance diet as tolerated Replete K+ 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
[2018-09-20] MEDS ORDERED: oxyCODONE/Acetamin 5/325 MG* TAB PO PRN (08:51)
[2018-09-20] MEDS ORDERED: HYDROmorphone INJ1* 1 MG/ML SYRINGE IV SLOW PU PRN (08:52)
[2018-09-20] MEDS: Famotidine IV* 10 MG/ML 2 ML (20 mg) IV SLOW PU SCH ×3 (08:54→22:20)
[2018-09-20] MEDS: Potassium Chloride IV* 40 MEQ in Lactated Ringers 1000 ML Bag* 1,000 ML IVPB SCH ×2 (08:54→22:14)
--- NOTE | 2018-09-20 09:06 | PN ---
<NaMaria Del Carmen - Last Filed: 09/20/18 08:54> Progress Note - Progress Note Date of Service: 09/20/18 Note: S: This is a 57 y/o male s/p colostomy reversal on 16SEP2018. Patient has been ambulating well. Pain level is minimal at 1/10. Has used the SALES CLOSER 10 times yesterday, and only once today. His dose is 3mg per 24 hours. Patient has also been receiving Ketorolac 30 mg IV push q 6 hours. States the Ketorolac is controlling his pain well and he doesn't feel the need to use the SALES CLOSER. He has not had any more episodes of nausea or vomiting since yesterday morning, 19SEP2018. He passed gas early this morning, 3am, on 20SEP2018. No bowel movements. Has been urinating without difficulty. Has been ambulating without difficulty. Denies fever, chills, SOB, chest pain. Active medications are as follows: Acetaminophen (Tylenol Tab*) 650 mg PO Q4H PRN PRN Reason: mild pain or fever Famotidine (Pepcid Iv*) 20 mg IV SLOW PU BID [facility] Last Admin: 09/20/18 08:57 Dose: Not Given Heparin Sodium (Porcine) (Heparin Vial(*)) 5,000 units SUBCUT Q8HR [facility] Last Admin: 09/20/18 05:42 Dose: 5,000 units Hydromorphone HCl (Dilaudid Inj1s*) 1 mg IV SLOW PU Q2H PRN PRN Reason: SEVERE PAIN Potassium Chloride 40 meq/ (Lactated Ringer's) 1,020 mls @ 75 mls/hr IVPB Q13H [facility] Last Admin: 09/20/18 08:54 Dose: 75 mls/hr Ketorolac Tromethamine (Toradol Inj*) 30 mg IV PUSH Q6H PRN PRN Reason: PAIN Last Admin: 09/20/18 01:48 Dose: 30 mg Naloxone HCl (Narcan*) 0.08 mg IV PUSH .Q2MIN PRN PRN Reason: OVERSEDATION Ondansetron HCl (Zofran Inj*) 4 mg IV Q6H PRN PRN Reason: NAUSEA Oxycodone/Acetaminophen (Percocet 5/325 Tab*) 1 tab PO Q4H PRN PRN Reason: moderate pain Oxycodone/Acetaminophen (Percocet 5/325 Tab*) 2 tab PO Q4H PRN PRN Reason: moderately severe pain Tamsulosin HCl (Flomax Cap*) 0.4 mg PO BEDTIME [facility] Last Admin: 09/19/18 21:56 Dose: 0.4 mg O: Vital Signs Temp 98 F 09/20/18 07:24 Pulse 63 09/20/18 07:24 Resp 20 09/20/18 09:36 BP 148/71 09/20/18 07:24 Pulse Ox 97 09/20/18 09:00 Intake & Output 09/19/18 09/20/18 09/20/18 18:59 06:59 18:59 Intake Total 990 1211 709 Output Total 400 500 Balance 590 711 709 Intake: IV Fluids 990 971 709 LR 990 971 709 Oral 240 Output: Urine 400 500 Other: Estimated Void Medium # Bowel Movements 0 # Voids 6 General: Patient is lying supine in bed and is non-toxic appearing in no acute distress. A&O x 3. Cardio: Normal rate and rhythm. S1 and S2 auscultated without S3 or S4. No peripheral edema. Respiratory: Lungs clear to auscultations throughout bilaterally. Abdomen/surgical site: Bowel sounds scant throughout 4 quadrants. No tenderness to palpation around the surgical site. Incisions are without erythema or purulent drainage. Packing has blood tinged drainage, but not saturated or excessive. [place] remain in place. Packing was removed and replaced with 1in cotton packing and dressed appropriately with gauze and tape. A: POD #4 s/p colostomy reversal and is doing well. P: Continue to ambulate regularly. Clear liquids as tolerated. Decrease or discontinue SALES CLOSER of dilaudid per physician instruction. Discussed this with patient. <Presley Bee - Last Filed: 09/20/18 14:11> Progress Note - Progress Note Note: Patient seen with PA student, Maria Del Carmen Monzon. I agree with above assessment and plan. Dr. Velazquez was also in to see patient. <Hiram Velazquez - Last Filed: 09/26/18 12:03> Progress Note - Progress Note Date of Service: 09/26/18
[2018-09-20] MEDS: oxyCODONE/Acetamin 5/325 MG* TAB PO PRN ×2 (09:36→14:11)
[2018-09-20] MEDS: Tamsulosin CAP* 0.4 MG PO SCH (20:49)
[2018-09-21] MEDS: Ketorolac INJ* 30 MG/ML 1 ML VIAL IV PUSH PRN (03:31)
[2018-09-21] MEDS: Heparin VIAL(*) 5000 UNITS/ML VIAL (FIVE THOUSAND) SUBCUT SCH ×3 (06:14→22:14)
[2018-09-21] MEDS: Famotidine IV* 10 MG/ML 2 ML (20 mg) IV SLOW PU SCH ×2 (09:07→20:23)
[2018-09-21] MEDS: Potassium Chloride IV* 40 MEQ in Lactated Ringers 1000 ML Bag* 1,000 ML IVPB SCH (11:06)
--- NOTE | 2018-09-21 12:11 | PN ---
Progress Note - Progress Note Date of Service: 09/21/18 SOAP: Subjective: Doing well Had BM this morning and passing flatus Wants to eat Objective: Temp Pulse Resp BP Pulse Ox 98.7 F 68 18 139/68 97 09/21/18 11:35 09/21/18 11:35 09/21/18 11:35 09/21/18 11:35 09/21/18 11:35 Intake & Output 09/19/18 09/20/18 09/21/18 09/22/18 06:59 06:59 06:59 06:59 Intake Total 2159.9 2201 2450 961 Output Total 0223 325 0715 300 Balance 409.9 1301 -70 661 Intake: IV Fluids 1119.9 1961 1700 961 LR 1119.9 1961 709 LR /c 40KCL 991 961 Oral 1040 240 750 Output: Urine 9412 807 9164 300 [place] 525 Other: Estimated Void Large Medium Small # Bowel Movements 0 0 0 1 Estimated Stool Amount Medium # Voids 1 6 2 PEX: Comfortable Lungs are clear Abd is less distended. Bowel sounds are present. Wound packing in place, wound clean. Ext without edema Assessment: POD# 5 s/p open colostomy reversal Ileus -resolving Plan: Advance diet D/C IVF Wound care [facility]NA arrangement for home packing change Plan D/C 09/22/18 All discussed with patient.
--- NOTE | 2018-09-21 14:26 | PN ---
Progress Note - Progress Note Date of Service: 09/21/18 Note: S: This is a 57 y/o male patient s/p colostomy reversal on 16SEP2018. Patient has been ambulating well. 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 Patient hasn't experienced any nausea with vomiting since two days ago on 19SEP2018. Patient had first bowel movement since surgery this morning. Denies blood in stool. Denies chest pain, SOB, fever, chills, abdominal pain. Active medications are as follows: Acetaminophen (Tylenol Tab*) 650 mg PO Q4H PRN PRN Reason: mild pain or fever Famotidine (Pepcid Iv*) 20 mg IV SLOW PU BID [facility] Last Admin: 09/21/18 09:07 Dose: Not Given Heparin Sodium (Porcine) (Heparin Vial(*)) 5,000 units SUBCUT Q8HR [facility] Last Admin: 09/21/18 14:18 Dose: 5,000 units Hydromorphone HCl (Dilaudid Inj1s*) 1 mg IV SLOW PU Q2H PRN PRN Reason: SEVERE PAIN Naloxone HCl (Narcan*) 0.08 mg IV PUSH .Q2MIN PRN PRN Reason: OVERSEDATION Ondansetron HCl (Zofran Inj*) 4 mg IV Q6H PRN PRN Reason: NAUSEA Oxycodone/Acetaminophen (Percocet 5/325 Tab*) 1 tab PO Q4H PRN PRN Reason: moderate pain Oxycodone/Acetaminophen (Percocet 5/325 Tab*) 2 tab PO Q4H PRN PRN Reason: moderately severe pain Last Admin: 09/20/18 14:11 Dose: 2 tab Tamsulosin HCl (Flomax Cap*) 0.4 mg PO BEDTIME [facility] Last Admin: 09/20/18 20:49 Dose: 0.4 mg O: Vital Signs Temp 98.7 F 09/21/18 11:35 Pulse 68 09/21/18 11:35 Resp 18 09/21/18 11:35 BP 139/68 09/21/18 11:35 Pulse Ox 97 09/21/18 11:35 Intake & Output 09/20/18 09/21/18 09/21/18 18:59 06:59 18:59 Intake Total 919 1531 1968 Output Total 2520 500 Balance 919 -989 1468 Intake: IV Fluids 056 906 7092 LR 709 LR /c 40KCL 991 1728 Oral 210 540 240 Output: Urine 2520 500 Other: Estimated Void Small # Bowel Movements 0 0 Estimated Stool Amount Medium # Voids 2 General: Lying supine in bed comfortably in no acute distress. A&O x 3. Cardio: Regular rate and rhythm. S1 and S2 auscultated without S3 or S4 auscultated. No peripheral edema. Respiratory: Lungs clear to auscultation throughout bilaterally. Abdomen/Surgical Site: Bowel sounds active throughout all 4 quadrants. No tenderness to palpation around the surgical site. Incisions are without erythema or purulent drainage. The packing that was in place was slightly blood tinged, but not excessive in amount. [place] are in place. Packing was removed and replaced with 1 inch cotton packing and dressed with gauze and tape. Patient was examined by myself with RAFAEL Brock present. A: POD #5 s/p colostomy reversal and is improving and doing well. P: Continue to ambulate regularly. Continue reintroduction of food as tolerated by the patient. Continue 2 Percocet PO q 4 hours for pain as needed. If all continues as is, and as discussed with Toan Bee and Dr. Velazquez, the patient will be ready for discharge home tomorrow [id number].
[2018-09-21] MEDS: Tamsulosin CAP* 0.4 MG PO SCH (20:28)
[2018-09-22] MEDS: Heparin VIAL(*) 5000 UNITS/ML VIAL (FIVE THOUSAND) SUBCUT SCH (06:04)
[2018-09-22 07:56] VITALS: BP 136/82
--- NOTE | 2018-09-22 08:40 | PN ---
Progress Note - Progress Note Date of Service: 09/22/18 SOAP: Subjective: Doing well-tolerating po and having BM's passing flatus Ambulating Minimal pain Objective: Temp Pulse Resp BP Pulse Ox 99.0 F 74 18 136/82 97 09/22/18 07:53 09/22/18 07:53 09/22/18 07:53 09/22/18 07:53 09/22/18 07:53 Intake & Output 09/20/18 09/21/18 09/22/18 09/23/18 06:59 06:59 06:59 06:59 Intake Total 2201 2450 2368 Output Total 900 2520 1650 Balance 1301 -70 718 Intake: IV Fluids 1961 1700 1728 LR 1961 709 LR /c 40KCL 991 1728 Oral 240 750 640 Output: Urine 900 2520 1650 Other: Estimated Void Medium Small # Bowel Movements 0 0 0 Estimated Stool Amount Medium # Voids 6 2 PEX: Comfortable Lungs are clear Abd is soft and non-distended. Bowel sounds present. Wound and ostomy site pink and clean, packing changed Ext without edema Assessment: POD#6 s/p colostomy reversal Ileus-resolved Plan: D/C home today Instructions given Follow up in [facility] office next week.
[2018-09-22] MEDS: Famotidine IV* 10 MG/ML 2 ML (20 mg) IV SLOW PU SCH (09:09)
--- NOTE | 2018-09-26 13:02 | DS ---
DISCHARGE SUMMARY: DATE OF ADMISSION: 09/16/18 DATE OF DISCHARGE: 09/22/18 PRINCIPAL DIAGNOSIS: Existing end sigmoid colostomy. PROCEDURE PERFORMED: Open colostomy reversal. CONDITION ON DISCHARGE: Good. DISPOSITION: To home. MEDICINES ON DISCHARGE: Included oxycodone 5/325 one p.o. q.4 hours, #15, p.r.n. for pain. DIET: Regular. DISCHARGE INSTRUCTIONS: Wound care visiting nurses were arranged for Wednesday, Wednesday, Wednesday wound packing for the ostomy and midline incision. FOLLOWUP: The patient was to be seen in the office in [facility] in 10 days for postoperative care. HISTORY OF PRESENT ILLNESS: Mr. Mota is a 57-year-old gentleman who had been admitted to the [facility] last fall with a perforated sigmoid diverticulosis with peritonitis and sepsis requiring emergent exploratory laparotomy with sigmoid resection and end colostomy. He has been doing well over the past 8 to 10 months and had a recent colonoscopy. It showed only dive rticular disease and now presents for an elective colostomy reversal. HOSPITAL COURSE: The patient underwent an open colostomy reversal on the day of admission and was ad mitted to the surgical short stay postoperatively. He was given a RESIDENTIAL ADVISOR for discomfort and started on IV fluids. He was allowed clear liquids. His hospital stay was remarkable for a postoperative ileus for the first 3 days, but this subsequentl y resolved and by postoperative day #5, he was passing flatus and having several loose bowel movement s and was on a diet. That was advanced. Wound care was initiated with a wet-to-dry packing both at t he ostomy site and in the midline incision. He remained afebrile with stable vital signs and a bree l white blood cell count on discharge. On hospital day #6, he was tolerating a regular diet, visiting nurses were arranged, and he had a rid e home and he was discharged home. [id number]/[facility] #: [id number]
== END 2018-09-22 11:20 | disposition home or self-care (01) | DRG 223 ==
LOC: AA 06:37 → SSU 13:47
PROVIDERS: ADMIT Surgery; ATTEND Surgery
PROC: 0DNU4ZZ Release Omentum, Percutaneous Endoscopic Approach (ICD-10-PCS; 2018-09-16)
PROC: 0DN84ZZ Release Small Intestine, Percutaneous Endoscopic Approach (ICD-10-PCS; 2018-09-16)
PROC: 0WQF0ZZ Repair Abdominal Wall, Open Approach (ICD-10-PCS; 2018-09-16)
PROC: 0DSN0ZZ Reposition Sigmoid Colon, Open Approach (ICD-10-PCS; principal; 2018-09-16 08:30)
DX: Z43.3 Encounter for attention to colostomy (principal); K56.7 Ileus, unspecified; Z87.891 Personal history of nicotine dependence; K57.30 Diverticulosis of large intestine without perforation or abscess without bleeding; K43.5 Parastomal hernia without obstruction or gangrene; K66.0 Peritoneal adhesions (postprocedural) (postinfection); Z90.49 Acquired absence of other specified parts of digestive tract; E87.6 Hypokalemia
CPT/HCPCS: 36415; 80048; 81003; 81015; 85025; 86850; 86900; 86901; 87086; 88305; 88307; A9270-GY; J0330; J1100; J1170; J1240; J1335; J1644; J1885; J2250; J2405; J2704; J2710; J3010; J3480